=== PATIENT | male | born 1940 | race Caucasian/White ===

== ENCOUNTER 2020-03-07 13:24 | Outpatient (REF) | payer MEDICARE, SELFPAY | END 2020-03-07 13:25 | disposition home or self-care (01) | LOC: HO.LAB 13:24 | PROVIDERS: PCP Internal Medicine; Visit Provider Internal Medicine | DX: Z20.828 Contact with and (suspected) exposure to other viral communicable diseases (principal) | CPT/HCPCS: 36415; C9803; U0003 ==

== ENCOUNTER 2020-08-14 10:32 | Outpatient (REF) | payer MEDICARE, SELFPAY ==
[2020-08-14 10:36] LABS: MANUAL DIFF FLAG NO
[2020-08-14 10:48] LABS: Basophils Absolute Auto 0.1 X10*3/uL (0.0-0.2); Basophils Percent Auto 0.9 % (0-2); Eosinophils Absolute Auto 0.2 X10*3/uL (0.0-0.4); Eosinophils Percent Auto 2.8 % (0-4); Hematocrit 45.6 % (42-52); Hemoglobin 14.9 g/dl (14.0-18.0); Imm Gran Abs Auto 0.01 X10*3/uL (0.00-0.03); Imm Gran Pct Auto 0.2 % (0.0-0.4); Lymphocytes Absolute Auto 1.7 X10*3/uL (1.2-4.9); Lymphocytes Percent Auto 30.3 % (20-40); Mean Corpuscular HGB Conc 32.7 g/dl (31.0-36.0); Mean Corpuscular Hemoglobin 27.2 pg (27.0-33.0); Mean Corpuscular Volume 83.2 fL (80-98); Mean Platelet Volume 10.5 fL (9.4-12.4); Monocytes Absolute Auto 0.6 X10*3/uL (0.1-1.2); Monocytes Percent Auto 10.1 % (2-11); Neutrophils Absolute Auto 3.2 X10*3/uL (2.0-8.3); Neutrophils Percent Auto 55.7 % (45-73); Platelet Count 180 X10*3/uL (160-400); Red Blood Count 5.48 X10*6/uL (4.60-5.80); Red Cell Distribution Width 13.4 % (11.0-16.0); White Blood Count 5.7 X10*3/uL (4.8-10.8)
[2020-08-14 11:01] LABS: Estimated Average Glucose 108 mg/dL; Glucose Urine UA NEG (NEG); Hemoglobin A1c % 5.4 %; Leukocyte Esterase Urine NEG (NEG); Nitrite Urine NEG (NEG); PH 5.5 (5.0-8.0); Specific Gravity - Urine 1.025 (1.005-1.025); Urine Blood NEG (NEG); Urine Ketones NEG (NEG); Urine Protein NEG (NEG-TRACE)
[2020-08-14 11:04] LABS: Appearance Urine CLEAR; Color Urine YELLOW
[2020-08-14 11:49] LABS: Creatinine Urine 213.49 mg/dL; Microalbum/Creatinine Ratio Ur 4.2 ug/mg cr
[2020-08-14 11:55] LABS: Alanine Aminotransferase 13 U/L (0-40); Albumin Level 4.1 g/dL (3.5-5.0); Alkaline Phosphatase 66 U/L (39-117); Anion Gap 15 (12-20); Aspartate Amino Transferase 19 U/L (5-37); Bilirubin Total 1.3 mg/dL (0.0-1.0); Blood Urea Nitrogen 17 mg/dL (9-16); Calcium 8.7 mg/dL (8.4-10.2); Carbon Dioxide 27 mmol/L (22-29); Chloride 105 mmol/L (96-108); Cholesterol 222 mg/dL; Estimated Glomerular Filt Rate > 60; Glucose Fasting 98 mg/dL (60-99); HDL Cholesterol 45 mg/dL; LDL Cholesterol Calculated 148 mg/dl; Potassium 3.5 mmol/L (3.3-5.1); Sodium 143 mmol/L (135-145); Total Protein 6.3 g/dL (6.5-8.0); Triglycerides 148 mg/dL
[2020-08-14 12:15] LABS: PSA,Total (Free>4and<10) < 0.05 ng/mL (0.00-4.00)
[2020-08-14 12:22] LABS: Reflex LDLD? No
== END 2020-08-14 10:33 | disposition home or self-care (01) ==
LOC: HO.LNP 10:32
PROVIDERS: Visit Provider Internal Medicine
DX: Z00.00 Encounter for general adult medical examination without abnormal findings (principal); Z12.5 Encounter for screening for malignant neoplasm of prostate; E78.00 Pure hypercholesterolemia, unspecified; E11.40 Type 2 diabetes mellitus with diabetic neuropathy, unspecified; I10 Essential (primary) hypertension; Z85.46 Personal history of malignant neoplasm of prostate
CPT/HCPCS: 80053; 80061; 81003; 82043; 83036; 84153; 85025

== ENCOUNTER 2020-10-16 17:33 | Observation (INO) | payer MEDICARE, SELFPAY ==
--- NOTE | ~2020-10-16 | XR_ITS ---
EXAMINATION: XR CHEST CLINICAL INFORMATION: Chest pain COMPARISON: 10/04/2019 TECHNIQUE: Frontal view of the chest was obtained. FINDINGS: Cardiomediastinal silhouette is stable. The costophrenic sulci are excluded from the current film is no clear effusion, pneumothorax or consolidation. XR/XR chest 1V IMPRESSION: No acute cardiopulmonary process.
--- NOTE | 2020-10-16 17:38 | ECG_ITS ---
Test Reason : CHEST PAIN Blood Pressure : / mmHG Vent. Rate : 063 BPM Atrial Rate : 063 BPM P-R Int : 196 ms QRS Dur : 106 ms QT Int : 418 ms P-R-T Axes : 069 059 121 degrees QTc Int : 427 ms Normal sinus rhythm Anteroseptal infarct (cited on or before 16-OCT-2020) ST & T wave abnormality, consider lateral ischemia Abnormal ECG When compared with ECG of 28-JAN-2019 15:45, Premature ventricular complexes are no longer Present Serial changes of Anteroseptal infarct Present Referred By: Generic ED Physician Electronically Signed By:TAYA FIGUEROA
[2020-10-16 17:54] LABS: MANUAL DIFF FLAG NO
[2020-10-16 17:58] LABS: Basophils Percent Auto 0.5 % (0-2); Eosinophils Absolute Auto 0.3 X10*3/uL (0.0-0.4); Eosinophils Percent Auto 4.4 % (0-4); Hematocrit 44.7 % (42-52); Hemoglobin 15.2 g/dl (14.0-18.0); Imm Gran Abs Auto 0.01 X10*3/uL (0.00-0.03); Imm Gran Pct Auto 0.2 % (0.0-0.4); Lymphocytes Absolute Auto 1.6 X10*3/uL (1.2-4.9); Lymphocytes Percent Auto 23.8 % (20-40); Mean Corpuscular Hemoglobin 27.5 pg (27.0-33.0); Mean Corpuscular Volume 80.8 fL (80-98); Mean Platelet Volume 9.7 fL (9.4-12.4); Monocytes Absolute Auto 0.5 X10*3/uL (0.1-1.2); Monocytes Percent Auto 7.3 % (2-11); Neutrophils Absolute Auto 4.2 X10*3/uL (2.0-8.3); Neutrophils Percent Auto 63.8 % (45-73); Platelet Count 161 X10*3/uL (160-400); Red Blood Count 5.53 X10*6/uL (4.60-5.80); Red Cell Distribution Width 13.2 % (11.0-16.0); White Blood Count 6.6 X10*3/uL (4.8-10.8)
[2020-10-16 18:24] LABS: Anion Gap 13 (12-20); Blood Urea Nitrogen 11 mg/dL (9-16); Calcium 8.9 mg/dL (8.4-10.2); Carbon Dioxide 27 mmol/L (22-29); Chloride 101 mmol/L (96-108); Estimated Glomerular Filt Rate > 60; Glucose Random 125 mg/dL (60-115); Potassium 3.8 mmol/L (3.3-5.1); Sodium 137 mmol/L (135-145)
[2020-10-16 18:31] LABS: Troponin-I High Sensitivity 9.5 ng/L (<3.5-35.0)
[2020-10-16 19:50] VITALS: BP 192/72; PULSE 50; RESP 18; TEMP 36.7; O2SAT 97; BMI 29.5
[2020-10-16 22:14] VITALS: BP 202/77; PULSE 55; TEMP 36.9; O2SAT 99
--- NOTE | 2020-10-16 22:40 | ED_ITS ---
HPI - Chest Pain General Chief Complaint: Chest Pain Stated Complaint: CP Time Seen by Provider: 10/16/20 22:40 Source: patient Mode of arrival: ambulatory History of Present Illness HPI narrative: 80-year-old male with past medical history of hypertension who presents with complaints of left lateral chest ?discomfort? that started yesterd ay evening and persisted throughout the night and was not associated with dizziness/headache/nausea/diaphoresis/shortness of breath, nonradiating, no exacerbating/alleviating symptoms, no recent cough, no fever, no chills, no association with food/respirations/movement. Patient denies any association with exertion and states that it has persisted all throughout the day. He does describe that he did a little bit of yd work that consisted of riding on a lawnmower on Thursday, but otherwise denies any strenuous activity. Related Data Allergies Allergy/AdvReac Type Severity Reaction Status Date / Time No Known Allergies Allergy Verified 10/16/20 19:50 [No Known Allergies*] Review of Systems Review of Systems: Pertinent positives and negatives as stated in HPI 10 point review of systems is otherwise negative. PMFSH Past Medical History Medical History High cholesterol HTN (hypertension) Social History Social History Alcohol intake: never Patient Tobacco Use Status: Former Tobacco user Use of substances other than those prescribed or required for medical reasons: No Advance Directives: No Advance Directives Information Provided: Yes Physical Exam Vital Signs: Vital Signs: Last Vital Signs Temp 98.4 F 10/16/20 22:14 Pulse 58 10/17/20 00:09 Resp 16 10/17/20 00:09 BP 194/86 H 10/17/20 00:09 Pulse Ox 96 10/17/20 00:09 Body Mass Index 29.5 VITAL SIGNS: Reviewed. GENERAL: Well developed, well nourished, in no acute distress. HEAD: Normocephalic/atraumatic, EYES: PERRLA, EOMI intact without pain, no nystagmus OROPHARYNX: no oral lesions noted, posterior pharynx clear NECK: Supple, no adenopathy LUNGS: Normal breath sounds. No adventitious sounds or accessory muscle use. SpO2<99>, no chest wall tenderness on palpation CARDIOVASCULAR: Regular rate and rhythm without noted murmurs, no JVD or lower extremity edema. ABDOMEN: Soft, non-tender, non-distended with bowel sounds. MUSCULOSKELETAL: No tenderness, deformities, or effusions noted on gross inspection. EXTREMITIES: No cyanosis, clubbing or edema. SKIN: Inspection of the skin reveals no rashes NEUROLOGIC: Alert and oriented x 4. Strength and sensation to light touch were grossly intact x 4. Course Course Course Narrative: 80-year-old male with history and clinical presentation not indicative of angina, ACS, pneumonia. Review of all investigations although without acute findings I discussed the case with Cardiology and given the persistence of the left chest pain and EKG findings the recommendation is for admission for further evaluation. This case was discussed with the inpatient hospitalist who accepts admission. MDM - Chest Pain Lab Data Result diagrams: 10/16/20 17:48 10/16/20 17:48 Labs: Lab Results 10/16/20 10/16/20 10/16/20 Range/Units 17:48 17:48 17:48 WBC 6.6 (4.8-10.8) X10*3/uL RBC 5.53 (4.60-5.80) X10*6/uL Hgb 15.2 (14.0-18.0) g/dl Hct 44.7 (42-52) % MCV 80.8 (80-98) fL MCH 27.5 (27.0-33.0) pg MCHC 34.0 (31.0-36.0) g/dl RDW 13.2 (11.0-16.0) % Plt Count 161 (160-400) X10*3/uL MPV 9.7 (9.4-12.4) fL Immature Gran % (Auto) 0.2 (0.0-0.4) % Neut % (Auto) 63.8 (45-73) % Lymph % (Auto) 23.8 (20-40) % [place] % (Auto) 7.3 (2-11) % Eos % (Auto) 4.4 H (0-4) % Baso % (Auto) 0.5 (0-2) % Lymph # (Auto) 1.6 (1.2-4.9) X10*3/uL [place] # (Auto) 0.5 (0.1-1.2) X10*3/uL Eos # (Auto) 0.3 (0.0-0.4) X10*3/uL Baso # (Auto) 0.0 (0.0-0.2) X10*3/uL Abs Immat Gran (auto) 0.01 (0.00-0.03) X10*3/uL Absolute Neuts (auto) 4.2 (2.0-8.3) X10*3/uL Absolute Nucleated RBC 0.000 (0.0-0.012) X10*3/uL Nucleated RBC % (auto) 0.0 (0.0-0.2) /100WBC Sodium 137 (135-145) mmol/L Potassium 3.8 (3.3-5.1) mmol/L Chloride 101 (96-108) mmol/L Carbon Dioxide 27 (22-29) mmol/L Anion Gap 13 (12-20) BUN 11 (9-16) mg/dL Creatinine 1.00 (0.5-1.4) mg/dL Estim Creat Clear Calc TNP Estimated GFR > 60 Random Glucose 125 H (60-115) mg/dL Calcium 8.9 (8.4-10.2) mg/dL Troponin I High Sens 9.5 (<3.5-35.0) ng/L 10/16/20 Range/Units 22:02 WBC (4.8-10.8) X10*3/uL RBC (4.60-5.80) X10*6/uL Hgb (14.0-18.0) g/dl Hct (42-52) % MCV (80-98) fL MCH (27.0-33.0) pg MCHC (31.0-36.0) g/dl RDW (11.0-16.0) % Plt Count (160-400) X10*3/uL MPV (9.4-12.4) fL Immature Gran % (Auto) (0.0-0.4) % Neut % (Auto) (45-73) % Lymph % (Auto) (20-40) % [place] % (Auto) (2-11) % Eos % (Auto) (0-4) % Baso % (Auto) (0-2) % Lymph # (Auto) (1.2-4.9) X10*3/uL [place] # (Auto) (0.1-1.2) X10*3/uL Eos # (Auto) (0.0-0.4) X10*3/uL Baso # (Auto) (0.0-0.2) X10*3/uL Abs Immat Gran (auto) (0.00-0.03) X10*3/uL Absolute Neuts (auto) (2.0-8.3) X10*3/uL Absolute Nucleated RBC (0.0-0.012) X10*3/uL Nucleated RBC % (auto) (0.0-0.2) /100WBC Sodium (135-145) mmol/L Potassium (3.3-5.1) mmol/L Chloride (96-108) mmol/L Carbon Dioxide (22-29) mmol/L Anion Gap (12-20) BUN (9-16) mg/dL Creatinine (0.5-1.4) mg/dL Estim Creat Clear Calc Estimated GFR Random Glucose (60-115) mg/dL Calcium (8.4-10.2) mg/dL Troponin I High Sens 9.5 (<3.5-35.0) ng/L ECG Data ECG #1: Attestation: I personally reviewed and interpreted this ECG as follows: Prior ECG tracings: available for review (01/28/2019 minimal changes noted on comparison) Interpretation: Normal sinus rhythm, HR -63, no STEMI, the ST depressions noted in lateral leads appear to be old on comparison, QTC and TN are within normal limits. Discharge Plan Discharge Clinical Impression: Atypical chest pain, ACS (acute coronary syndrome) Patient Disposition: Admitted As Inpatient
[2020-10-16 22:57] LABS: Troponin-I High Sensitivity 9.5 ng/L (<3.5-35.0)
[2020-10-16 23:00] VITALS: BP 178/80; PULSE 52
[2020-10-16] MEDS: hydrALAZINE HCl 10 MG TABLET PO (23:00)
[2020-10-17] VITALS (9 sets, daily range): BP systolic 162–200; BP diastolic 80–92; PULSE 57–87; RESP 15–18; TEMP 36.2–36.6; O2SAT 95–97
[2020-10-17 02:27] LABS: COVID-19 Test Negative (Negative); IDNOW Serial# 9DD0AD1C
--- NOTE | 2020-10-17 04:56 | PM.IMHP ---
History of Present Illness Date of Service: 10/17/20 Chief Complaint: Chest discomfort 80-year-old male with history of hypertension, hyperlipidemia, who presented with left-sided chest discomfort. History is from patient and from ED notes. Patient endorses that his chest discomfort started the night of 10/15/2020, located on the left lateral chest, better with exertion, no aggravating factors, no radiation, no timing, lasting for hours/day. He said he has had this type of chest discomfort in the past before, and usually associated with elevated blood pressure. He tells me that he has [id number] hypertension; he saw gastroenterology nurse 2 years ago and was tried on many different medications before his blood pressure could be controlled; he also states that his primary care physician reduced his metoprolol 1.5 weeks ago (from 50 to 25 mg daily) because the patient was bradycardic; patient wonders if this is what is making his blood pressure high now. Otherwise, he denies fever, chills, nausea, vomiting, abdominal pain. In the ED, ED physician did consult with on-call gastroenterology nurse, and was advised to have the patient admitted with Cardiology consult. Review of Systems Constitutional: Constitutional: Denies chills, Denies fatigue, Denies fever(s), Denies headache(s), Denies weakness and Denies weight loss Eyes: Eyes: Denies blurry vision, Denies change in vision, Denies diplopia and Denies loss of vision ENT: Denies dysphagia, Denies vertigo, Denies dizziness, Denies headache(s), Denies hearing loss, Denies lip swelling and Denies sore throat Cardiovascular: Cardiovascular: Reports chest pain, Denies leg edema, Denies lightheadedness, Denies palpitations and Denies dyspnea Respiratory: Respiratory: Denies no additional respiratory complaints, Denies cough, Denies dyspnea and Denies wheezing Gastrointestinal: Gastrointestinal: Denies coffee ground emesis, Denies constipation, Denies dysphagia, Denies diarrhea, Denies nausea and Denies vomiting Genitourinary: Genitourinary: Denies dysuria Musculoskeletal: Musculoskeletal: Denies arthralgias, Denies muscle weakness, Denies numbness and Denies tingling Integumentary/Breasts: Skin/Breast: Denies bleeding lesions, Denies new lesions and Denies rash Neurologic: Denies vertigo, Denies dizziness, Denies headache(s), Denies loss of vision, Denies numbness, Denies tingling and Denies weakness Psychiatric: Psychiatric: Denies anxiety and Denies depression Endocrine: Endocrine: Denies cold intolerance, Denies fatigue, Denies heat intolerance and Denies palpitations Hematologic/Lymphatic: Hematologic/Lymphatic: Denies easy bleeding, Denies easy bruising and Denies lymphadenopathy Allergic/Immunologic: Allergic/Immunologic: Denies lip swelling and Denies wheezing PMFSH Medical History (Updated 10/17/20 @ 05:06 by Kit Marcelo MD) High cholesterol HTN (hypertension) Pertinent family history: father with hypertension Surgical History History of appendectomy Social History Household Members: Spouse Housing: House Do you presently have visiting nurse or other home services: No Alcohol intake: never Patient Tobacco Use Status: Former Tobacco user Use of substances other than those prescribed or required for medical reasons: No Have you been hit, kicked, punched, or otherwise hurt by someone within the past year? If so, by whom?: No Do you feel safe in your current relationship?: Yes Is there a partner from a previous relationship who is making you feel unsafe now?: No Are you made to feel afraid or neglected: No Advance Directives: No Advance Directives Information Provided: Yes Do you have thoughts of harming others: None Do you have a plan to hurt others: No Plan Recently lost weight without trying: No Nutrition Risks: No Nutritional Risk Meds Allergies Allergy/AdvReac Type Severity Reaction Status Date / Time No Known Allergies Allergy Verified 10/16/20 19:50 [No Known Allergies*] Active Medications: Current Medications Generic Name Dose Route Start Last Admin Trade Name Freq PRN Reason Stop Dose Admin Acetaminophen 650 mg 10/17/20 02:44 Acetaminophen 325 Mg Tablet PO Q6H PRN Pain, Mild (Pain Scale 1-3) Sodium Chloride 3 ml 10/17/20 08:00 0.9 % Sodium Chloride Flush 3 Ml Syringe IVFLUSH [facility] Medications Medication Instructions Recorded Confirmed Last Taken Type lisinopril 20 1 tab PO DAILY 10/17/20 10/17/20 Unknown History mg-hydrochlorothiazide 12.5 mg tablet metoprolol succinate 25 mg 1 tab PO DAILY 10/17/20 10/17/20 Unknown History tablet,extended release 24 hr pravastatin 40 mg tablet 1 tab PO DAILY 10/17/20 10/17/20 Unknown History Physical Exam Vital Signs and Narrative: Vital Signs: Last Vital Signs Temp 97.6 F 10/17/20 03:05 Pulse 62 10/17/20 03:05 Resp 18 10/17/20 02:54 BP 172/87 H 10/17/20 03:05 Pulse Ox 95 10/17/20 03:05 Body Mass Index 29.5 Const: General: no acute distress, well developed and alert HENMT: Face and sinus: Yes normal facial exam and Yes face symmetric Mouth: Normal oral and palatal mucosa present and moist mucous membranes Throat: Yes posterior oropharynx normal and Yes tonsils normal Eyes: General: appearance normal, both eyes and all related structures Alignment and Position: alignment normal and position normal Sclerae: sclerae normal Pupils: Equal, round and reactive pupils present EOM: EOMs intact bilaterally Neck: Yes normal visual inspection, Yes full ROM and Yes no lymphadenopathy Lymphatic: no lymphadenopathy noted Chest: Chest palpation & inspection: normal inspection of the chest, no tenderness and No rash Resp: Effort & Inspection: normal respiratory effort and able to speak in complete sentences Auscultation: clear to auscultation bilaterally, no crackles, no rales, no rhonchi and no wheezes Cardio: Rate: regular rate Rhythm: regular rhythm Heart sounds: S1 normal heart sound present, S2 normal heart sound present, no murmurs and no rubs GI: Inspection: No distended Palpation (GI): Soft to palpation and nontender Percussion: No tympanic to percussion Auscultation: normal bowel sounds Skin: Rashes: no rashes Trauma: no lacerations or abrasions Wounds: no wounds Neuro: Cranial nerves: Yes CN's II-XII intact bilaterally, Yes Equal, round and reactive pupils present and Yes Bilaterally intact EOM present Extrem: General: Yes full ROM and Yes no pedal edema Psych: Appearance: grossly normal Mental Status: mental status grossly normal Speech and movement: Normal speech and movement present Affect: normal affect Thought process: Normal thought process present Results Labs CBC and Chem 7: 10/16/20 17:48 08/17/21 17:48 Labs: Laboratory Results - last 24 hr 10/16/20 10/16/20 10/16/20 17:48 17:48 17:48 MCV 80.8 MCH 27.5 MCHC 34.0 RDW 13.2 Plt Count 161 MPV 9.7 Immature Gran % (Auto) 0.2 Neut % (Auto) 63.8 Lymph % (Auto) 23.8 [place] % (Auto) 7.3 Eos % (Auto) 4.4 H Baso % (Auto) 0.5 Lymph # (Auto) 1.6 [place] # (Auto) 0.5 Eos # (Auto) 0.3 Baso # (Auto) 0.0 Abs Immat Gran (auto) 0.01 Absolute Neuts (auto) 4.2 Absolute Nucleated RBC 0.000 Nucleated RBC % (auto) 0.0 Anion Gap 13 Estim Creat Clear Calc TNP Estimated GFR > 60 Random Glucose 125 H Calcium 8.9 Troponin I High Sens 9.5 COVID-19 ([facility]) COVID-19 Clin Com 10/16/20 10/17/20 22:02 02:07 MCV MCH MCHC RDW Plt Count MPV Immature Gran % (Auto) Neut % (Auto) Lymph % (Auto) [place] % (Auto) Eos % (Auto) Baso % (Auto) Lymph # (Auto) [place] # (Auto) Eos # (Auto) Baso # (Auto) Abs Immat Gran (auto) Absolute Neuts (auto) Absolute Nucleated RBC Nucleated RBC % (auto) Anion Gap Estim Creat Clear Calc Estimated GFR Random Glucose Calcium Troponin I High Sens 9.5 COVID-19 ([facility]) Negative COVID-19 Clin Com See Note Imaging Radiologist's Impressions: Impressions Chest X-Ray 10/16/20 17:45 IMPRESSION: No acute cardiopulmonary process. Assessment and Plan (1) Atypical chest pain: Status: Acute -troponins in the ED were flat -ED physician did contact gastroenterology nurse on-call, and was recommended to have the patient admitted with Cardiology consult -cardiology consult placed -troponin lab ordered for the morning -full-dose aspirin -Will defer to Cardiology if patient needs echocardiogram (2) HTN (hypertension): Status: Acute -patient with uncontrolled hypertension in the ED -continue home medications -IV hydralazine p.r.n. for systolic blood pressure over 160 -patient may have uncontrolled hypertension because of reduction of metoprolol from 50 mg to 25 mg about 1.5 weeks ago -cardiology consulted (as per above) (3) High cholesterol: Status: Acute -continue home medications FEN: Cardiac diet CODE STATUS: Full Code DISPO: Admit to Observation Quality Stroke Does the patient have a stroke diagnosis?: No VTE Prior VTE?: No VTE Risk Level:: Medical - low VTE Device Contraindication: N/A - Device Ordered VTE Drug Contraindication: Treatment Not Indicated
[2020-10-17] MEDS: hydrALAZINE HCl 20 MG/ML VIAL 10 MG IVPUSH (05:25)
[2020-10-17] MEDS: Pantoprazole Sodium 40 MG/10 ML VIAL IVPUSH (05:26)
--- NOTE | 2020-10-17 05:33 | PC.NURSE ---
pt medicated with hydralazine 10mg iv for bp-200/80 at 0530.will continue to monitor.denies chest pain or sob.
[2020-10-17 06:16] LABS: MANUAL DIFF FLAG NO
[2020-10-17 06:30] LABS: Basophils Absolute Auto 0.1 X10*3/uL (0.0-0.2); Basophils Percent Auto 0.7 % (0-2); Eosinophils Absolute Auto 0.3 X10*3/uL (0.0-0.4); Eosinophils Percent Auto 3.8 % (0-4); Hematocrit 45.3 % (42-52); Hemoglobin 15.2 g/dl (14.0-18.0); Imm Gran Abs Auto 0.02 X10*3/uL (0.00-0.03); Imm Gran Pct Auto 0.3 % (0.0-0.4); Lymphocytes Absolute Auto 1.9 X10*3/uL (1.2-4.9); Lymphocytes Percent Auto 27.7 % (20-40); Mean Corpuscular HGB Conc 33.6 g/dl (31.0-36.0); Mean Corpuscular Hemoglobin 26.9 pg (27.0-33.0); Mean Corpuscular Volume 80.2 fL (80-98); Mean Platelet Volume 9.5 fL (9.4-12.4); Monocytes Absolute Auto 0.6 X10*3/uL (0.1-1.2); Monocytes Percent Auto 8.6 % (2-11); Neutrophils Percent Auto 58.9 % (45-73); Platelet Count 165 X10*3/uL (160-400); Red Blood Count 5.65 X10*6/uL (4.60-5.80); Red Cell Distribution Width 13.2 % (11.0-16.0); White Blood Count 6.8 X10*3/uL (4.8-10.8)
--- NOTE | 2020-10-17 06:38 | PC.NURSE ---
bp-186/84 1 hour after iv hydralazine given.
[2020-10-17 06:59] LABS: Troponin-I High Sensitivity 8.8 ng/L (<3.5-35.0)
[2020-10-17] MEDS: 0.9 % Sodium Chloride Flush 3 ML SYRINGE IVFLUSH (08:05)
[2020-10-17] MEDS: Pravastatin Sodium 40 MG TABLET PO (08:05)
[2020-10-17] MEDS: lisinopriL 40 MG TABLET PO (08:06)
[2020-10-17] MEDS: Aspirin 325 MG TABLET PO (08:06)
[2020-10-17] MEDS: Metoprolol Succinate ER 25 MG TAB.ER.24H PO (08:06)
[2020-10-17] MEDS: hydroCHLOROthiazide 12.5 MG TABLET PO (08:06)
--- NOTE | 2020-10-17 09:47 | MHC.CM.PN ---
PATIENT LIVES WITH HIS HCP/. COPY OF DOCUMENT REQUESTED IF PATIENT DOES NOT DC TODAY HE IS INDEPENDENT WITH HIS ADLS. NO [facility]NA OR ELDER SERVICES. HE WOULD LIKE TO RETURN HOME TODAY WITH NO SERVICES. [place] 10/17 IN CHART.
--- NOTE | 2020-10-17 10:19 | PC.NURSE ---
Patient is alert and oriented. Patient verbalized wanting to leave AMA, Dr. alves made aware, at bedside. Patient educated on risks of leaving AMA. Patient verbally understood. IV removed. devulcanizer operator removed. AMA paperwork signed. Leaving unaccompanied paperwork signed.
--- NOTE | 2020-10-17 14:12 | MHC.CM.PN ---
POST DC NOTE PATIENT LEFT AMA.
--- NOTE | 2020-10-17 18:05 | P.DS_ITS ---
DS: Providers Provider Date of Service: 10/17/20 Date of admission: 10/17/20 02:44 Date of discharge: 10/17/20 Primary care physician: Boone Oconnell MD DS: Diagnosis Discharge Diagnosis (1) Atypical chest pain: Status: Acute (2) HTN (hypertension): Status: Acute (3) High cholesterol: Status: Acute DS: Medications Discharge Medications Home Medications: Home Medications Medication Instructions Recorded Confirmed lisinopril 20 1 tab PO DAILY 10/17/20 10/17/20 mg-hydrochlorothiazide 12.5 mg tablet metoprolol succinate 25 mg 1 tab PO DAILY 10/17/20 10/17/20 tablet,extended release 24 hr pravastatin 40 mg tablet 1 tab PO DAILY 10/17/20 10/17/20 Previous Rx's Medication Instructions Recorded amlodipine 2.5 mg tablet 2.5 mg PO DAILY #7 tab 10/17/20 DS: Summary Hospital Course Hospital Course: Patient was admitted for uncontrolled hypertension and chest tightness: Troponin X3 seems flat, blood pressure was still uncontrolled: Subsequently this morning patient suddenly decided to leave against medical advise-risk of leaving against medical advise discussed with patient and his in detail including , [place] - they both understand and agree still wants to leave. Will advised to aspirin at home he said he has that at home and also we added amlodipine 2.5 mg in addition to his current hypertension regimen-advised to go to his PCP as soon as possible and come back to the hospital in case his condition worsen or develops chest pain again. Patient is alert orientedx3 understands above conversation in detail. Above management discussed with the patient in detail length she understand and in agreement with the above plan, time spent 50 minutes and 50% time spent on counseling. Significant findings: As above. Procedures performed: None. Treatment and response: As above. Complications: None. Time Spent with Patient Time attestation: Total time spent providing and/or coordinating discharge services: Discharge coordination time: Greater than 30 minutes Quality: Stroke Does the patient have a stroke diagnosis?: No Physical Exam Vital Signs: Vital Signs: Last Vital Signs Temp 97.8 F 10/17/20 08:00 Pulse 87 10/17/20 08:06 Resp 16 10/17/20 08:00 BP 193/91 H 10/17/20 08:06 Pulse Ox 96 10/17/20 08:00 Body Mass Index 29.5 Cvs: rrr, [id number] , no murmur res: clear to auscultation ,no rhonchii or wheezing abd: no rebound or guarding ,nt, bs present. ext pulses present , no cyanosis neuro: axo3 , nonfocal. DS: Data Data Completed and Pending Labs on day of discharge: Laboratory Results - last 24 hr 10/16/20 10/16/20 10/16/20 17:48 17:48 22:02 WBC RBC Hgb Hct MCV MCH MCHC RDW Plt Count MPV Immature Gran % (Auto) Neut % (Auto) Lymph % (Auto) [place] % (Auto) Eos % (Auto) Baso % (Auto) Lymph # (Auto) [place] # (Auto) Eos # (Auto) Baso # (Auto) Abs Immat Gran (auto) Absolute Neuts (auto) Absolute Nucleated RBC Nucleated RBC % (auto) Sodium 137 Potassium 3.8 Chloride 101 Carbon Dioxide 27 Anion Gap 13 BUN 11 Creatinine 1.00 Estim Creat Clear Calc TNP Estimated GFR > 60 Random Glucose 125 H Calcium 8.9 Troponin I High Sens 9.5 9.5 COVID-19 ([facility]) COVID-[employer] Com 10/17/20 10/17/20 10/17/20 02:07 06:03 06:03 WBC 6.8 RBC 5.65 Hgb 15.2 Hct 45.3 MCV 80.2 MCH 26.9 L MCHC 33.6 RDW 13.2 Plt Count 165 MPV 9.5 Immature Gran % (Auto) 0.3 Neut % (Auto) 58.9 Lymph % (Auto) 27.7 Will % (Auto) 8.6 Eos % (Auto) 3.8 Baso % (Auto) 0.7 Lymph # (Auto) 1.9 Will # (Auto) 0.6 Eos # (Auto) 0.3 Baso # (Auto) 0.1 Abs Immat Gran (auto) 0.02 Absolute Neuts (auto) 4.0 Absolute Nucleated RBC 0.000 Nucleated RBC % (auto) 0.0 Sodium Potassium Chloride Carbon Dioxide Anion Gap BUN Creatinine Estim Creat Clear Calc Estimated GFR Random Glucose Calcium Troponin I High Sens 8.8 COVID-19 ([facility]) Negative COVID-19 Clin Com See Note Discharge Plan Discharge Patient Disposition: Left Against Medical Advice Discharge Diagnosis: uncontrolled htn , chest pain Referrals: Boone Oconnell MD [Primary Care Provider] - 1 Week Discharge Medications: New amlodipine 2.5 mg tablet 2.5 mg PO DAILY Qty: 7 RF: 0 Continued lisinopril-hydrochlorothiazide 20-12.5 mg tablet 1 tab PO DAILY RF: 0 pravastatin 40 mg tablet 1 tab PO DAILY RF: 0 metoprolol succinate 25 mg tablet extended release 24 hr 1 tab PO DAILY RF: 0 Discharge Orders: Discharge Order (Routine); Ordered 10/17/20 Ordered By: Ida Kohli Diet: advance to usual diet Activity on Discharge: As tolerated Care Plan Goals: patient left against medical advise -risks of levaing against medical advise discussed with him in detailincluding -he still wants to go. Health Concerns: as above. Plan of Treatment: as above. Assessment: as above. Discharge Date/Time: 10/17/20 10:35
== END 2020-10-17 10:35 | disposition left against medical advice (07) ==
LOC: HO.ED 23:59 → HO.EDOVER 10-17 02:52 → HO.S3 10-17 03:20
PROVIDERS: Admitting Provider Internal Medicine; Emergency Provider Student in an Organized Health Care Education/Training Program; PCP Internal Medicine; Visit Provider Internal Medicine
DX: R07.89 Other chest pain (principal); I10 Essential (primary) hypertension; E78.00 Pure hypercholesterolemia, unspecified; I21.09 ST elevation (STEMI) myocardial infarction involving other coronary artery of anterior wall; R94.31 Abnormal electrocardiogram [ECG] [EKG]; Z87.891 Personal history of nicotine dependence; Z20.822 Contact with and (suspected) exposure to COVID-19; Z53.29 Procedure and treatment not carried out because of patient's decision for other reasons; Z79.899 Other long term (current) drug therapy
CPT/HCPCS: 36415; 71045; 80048; 84484; 85025; 87635; 93005; 96374; 96375; 99218; 99220; 99285

== ENCOUNTER 2020-11-12 14:13 | Outpatient (REF) | payer MEDICARE, SELFPAY ==
[2020-11-12 14:32] LABS: Appearance Urine CLEAR; Color Urine YELLOW; Glucose Urine UA NEG (NEG); Leukocyte Esterase Urine NEG (NEG); Nitrite Urine NEG (NEG); Urine Blood NEG (NEG); Urine Ketones NEG (NEG); Urine Protein NEG (NEG-TRACE)
== END 2020-11-12 14:14 | disposition home or self-care (01) ==
LOC: HO.LNP 14:13
PROVIDERS: Visit Provider Internal Medicine
DX: N39.45 Continuous leakage (principal)
CPT/HCPCS: 81003; 87086

== ENCOUNTER → 2020-11-22 13:31 | Outpatient (BNVA) | payer MEDICARE, SELFPAY | PROVIDERS: PCP Internal Medicine; Referring Provider Internal Medicine; Visit Provider Internal Medicine Cardiovascular Disease | DX: R94.31 Abnormal electrocardiogram [ECG] [EKG] (principal); R07.89 Other chest pain; I10 Essential (primary) hypertension; R00.2 Palpitations | CPT/HCPCS: 99202 ==

== ENCOUNTER 2020-11-27 16:22 | Outpatient (REF) | payer MEDICARE, SELFPAY ==
[2020-11-27 16:41] LABS: Appearance Urine CLEAR; Color Urine YELLOW; Glucose Urine UA NEG (NEG); Leukocyte Esterase Urine NEG (NEG); Nitrite Urine NEG (NEG); Specific Gravity - Urine 1.025 (1.005-1.025); Urine Blood NEG (NEG); Urine Ketones NEG (NEG); Urine Protein NEG (NEG-TRACE)
[2020-11-27 17:12] LABS: Bacteria Urine TRACE /LPF; RBC Urine 0-2 /HPF (0); Squamous Epithelial Cell Urine TRACE /LPF; WBC Urine 0-2 /HPF (0-4)
== END 2020-11-27 16:23 | disposition home or self-care (01) ==
LOC: HO.LNP 16:22
PROVIDERS: Visit Provider Internal Medicine
DX: R31.9 Hematuria, unspecified (principal)
CPT/HCPCS: 81001; 87086

== ENCOUNTER → 2020-12-26 07:39 | Outpatient (REF) | payer MEDICARE, SELFPAY ==
--- NOTE | ~2020-12-26 | NM_ITS ---
Myocardial perfusion study Indication: Constipation with abnormal EKG to evaluate for myocardial ischemia Technique: The patient was brought in for a Lexiscan perfusion study on 12/26/2020. Patient performed low-level exercise and was injected 0.4 mg of Lexiscan intravenously. Within a minute of injection, 30 mCi of sestamibi was given intravenously. Images were obtained using the SPECT gamma camera interlaced with the gating device. Images were obtained in supine position. Resting perfusion study was performed on 12/27/2020. Patient was administered 30 mCi of sestamibi intravenously at rest. Images were then obtained in supine position. Images obtained with and without CT attenuation. Total DLP 112 mGy-cm. Images were processed with the software and compared side to side in short axis, horizontal long axis and vertical long axis views. Findings: The stress perfusion study showed nonattenuated images show minimally reduced uptake in the basal inferior and mid inferior wall of the LV myocardium. Remainder of the LV myocardium is normally perfused. Attenuation corrected images show mild thinning of the distal anterior wall of the LV myocardium.. The gated study shows low normal LV systolic function with calculated LVEF of 54%. LV cavity is normal in size. The gated study shows normal systolic wall thickening and contraction of segments. Resting study shows no change in perfusion pattern on nonattenuated study.. Gating at rest reveals normal cyst colic wall motion with ejection fraction at 51%. The findings are consistent with no clear reversible defect suggestive of ischemia. NM/NM gasper perf SPECT rest & str Impression: 1. Myocardial perfusion imaging study shows likely normal myocardial perfusion 2. Gated LVEF is 54% 3. Transient ischemic dilatation not present EKG is nondiagnostic for ischemia
--- NOTE | 2020-12-26 07:48 | CA_ITS ---
Transthoracic Echocardiogram Patient (Last, First, Middle): Saravanan Yarbrough M Gender: Male Date of : 1940 Age: 80 Procedure Date: 12/26/2020 Procedure Type: Transthoracic Echocardiogram Location: OP Height: 175.26 cm Weight: 92.08 kg BSA: 2.08 m2 Heart Rate: bpm BP: 134 / 80 mmHg Technical Illustrator: Referring MD: Mauri Smith MD Senior Architectural Designer: Mauri Smith MD Symptoms: R94.31 - Abnormal electrocardiogram [ECG] [EKG] Study Quality: Good ECG Rhythm: Sinus Conclusions: - 1. Normal LV systolic function with mild LVH with grade 1 diastolic dysfunction 2. Mild aortic stenosis 3. Normal RV systolic pressure 4. No pericardial effusion Findings Left Ventricle Normal left ventricular size and systolic function. There is mildly increased left ventricular wall thickness. Spectral Doppler is indicative of an impaired relaxation filling pattern. E/E prime ratio is <8, consistent with normal filling pressures. Evidence suggests grade I (mild) diastolic dysfunction. Right Ventricle Normal right ventricular cavity size and systolic function. Atria The left atrium is likely dilated. There is lipomatous hypertrophy of the interatrial septum. There is no evidence of interatrial shunt. The right atrium is normal in size. Aortic Valve There is mild calcification of the aortic valve. There is moderate thickening of the aortic valve. There is mild aortic valve stenosis. The peak aortic gradient is 22 mmHg.The mean gradient is 11 mmHg. The aortic valve area is 1.51 cm2. There is no aortic valve regurgitation. Mitral Valve Normal mitral valve structure and function. There is trace mitral valve regurgitation. There is no mitral valve stenosis. Pulmonic Valve The pulmonic valve was not well visualized. Tricuspid Valve Normal tricuspid valve structure. There is trace tricuspid valve regurgitation. The right ventricular systolic pressure is normal. There is no evidence of pulmonary hypertension. Great Vessels All visible segments of the aorta are normal in size. The pulmonary artery was not well visualized. Venous The inferior vena cava is normal in size and collapses greater than 50% with inspiration. Pericardium/Pleural There is no evidence of pericardial effusion. Prior Study Comparison No prior study available for comparison. Measurements 2D Linear Measurements IVSd: 1.31 0.6-0.9/0.6-1.0 cm LVIDd: 4.24 3.9-5.3/4.2-5.9 cm LVIDd Index: 2.04 2.4-3.2/2.2-3.1 cm/m2 LVIDs: 2.44 2.0-3.6 cm LVPWd: 1.26 0.7-1.1 cm Ao Root: 3.80 2.1-3.5 cm LA Diam: 4.20 2.7-3.8/3.0-4.0 cm LAIDs Index: 2.02 1.5-2.3 cm/m2 LV Mass: 249.18 67-162/88-224 g LV Mass Index: 119.80 43-95/49-115 g/m2 LVOT Diam: 2.20 3.0+(-)1.3 cm Mitral Valve MV Pk E: 0.46 MV PK A: 0.87 MV Decel Time: 358.00 E/A: 0.50 E'Lateral: 6.53 E'Medial: 4.79 E/E' Med: 9.70 E/E' Lat: 7.10 PHT: 105.00 MVA PHT: 2.[address] [place]: 1.29 Aortic Valve AoV Pk Alex: 2.32 AoV Mn Alex: 1.50 AoV VTI: 0.56 AoV Pk Grad: 22.00 Aov Mn Grad: 11.00 [place] Cont.VTI: 1.51 LVOT LVOT Pk Alex: 0.74 LVOT Mn Alex: 0.48 LVOT VTI: 0.22 LVOT Pk Grad: 2.00 LVOT Mn Grad: 1.00 LVOT Diam: 2.20 LVOT Area: 3.80 Diastolic Function MV Pk E: 0.46 MV Pk A: 0.87 E/A: 0.50 E'Medial: 4.79 E/E' Med: 9.70 E' Laterial: 6.53 E/E' Lat: 7.10 Tricuspid Valve TR Pk Alex: 1.87 TR Pk Grad: 14.00 RA Press: 3.00 RVSP: 17.00 Great Vessels Aorta Ao Root-2D: 3.80 2.0-3.7 cm Ao Asc: 3.50 2.1-3.4 cm Pulmonary Valve PV Pk Alex: 0.92 Peak PV Grad: 3.00 Updated in Other Vendor System with Status of Final Mauri Smith MD electronically signed on 12/26/2020 12:57:23 PM with status of Final
--- NOTE | 2020-12-26 07:48 | HM_ITS ---
Conclusion: 1. Patient was monitored for total of 3 days and 4 hours 2. Baseline rhythm is normal sinus rhythm with average heart rate of 58 beats per minute with frequent sinus bradycardia. 3. No significant pauses noted 4. No sustained atrial fibrillation noted 5. Brief Lupron color episodes with longest supraventricular run of 10 beats per minute consistent with atrial tachycardia 6. Total of 2956 PVCs accounting for 1.19% of total burden accounting for occasional PVCs 7. No patient reported events MTDD
--- NOTE | 2020-12-26 07:48 | CA_ITS ---
Acquisition Time: 2020-12-26 07:55:12 Total Exercise Time: 00:02:00 Test Indications: Abnormal ECG Medications: AMLODIPINE ASA LISINOPRIL/HCTZ PRAVASTATIN Protocol: LEXISCAN Max HR: 085 BPM 61% of Pred: 139 BPM Max BP: 152/066 mmHG Max Work Load: 1.6 METS Pharmqacological stress test with Lexiscan injection, while walking on treadmill, without anginal symptoms, with isolated PVC, with normotensive response to injection, with nondiagnostic EKG for ischemia, with EKG showing baseline ST/ T wave abnormality inferiorly and V5-V6 at baseline without significant changes during test. Test reviewed with Dr Gruber. Referred By: Mauri Smith Overread By: RUKHSANA SMYTH
== END ==
LOC: HO.CARD 07:39
PROVIDERS: PCP Internal Medicine; Visit Provider Internal Medicine Cardiovascular Disease
DX: R07.89 Other chest pain (principal); R94.31 Abnormal electrocardiogram [ECG] [EKG]; R00.2 Palpitations
CPT/HCPCS: 78452; 93017; 93242; 93306; A9500; J0280; J2785

== ENCOUNTER → 2021-01-08 14:38 | Outpatient (BNVA) | payer MEDICARE, SELFPAY | PROVIDERS: PCP Internal Medicine; Referring Provider Internal Medicine; Visit Provider Internal Medicine Cardiovascular Disease | DX: I11.9 Hypertensive heart disease without heart failure (principal); I49.3 Ventricular premature depolarization; I35.0 Nonrheumatic aortic (valve) stenosis | CPT/HCPCS: 99212 ==

== ENCOUNTER 2021-02-14 10:58 | Outpatient (REF) | payer MEDICARE, SELFPAY ==
[2021-02-14 11:15] LABS: Estimated Average Glucose 114 mg/dL; Hemoglobin A1c % 5.6 %
[2021-02-14 11:29] LABS: Alanine Aminotransferase 15 U/L (0-40); Alkaline Phosphatase 56 U/L (39-117); Aspartate Amino Transferase 18 U/L (5-37); Bilirubin Direct 0.3 mg/dL (0.0-0.5); Cholesterol 220 mg/dL; Glucose Fasting 93 mg/dL (60-99); HDL Cholesterol 44 mg/dL; LDL Cholesterol Calculated 148 mg/dl; Total Protein 6.4 g/dL (6.5-8.0); Triglycerides 144 mg/dL
[2021-02-14 11:47] LABS: Reflex LDLD? No
== END 2021-02-14 10:59 | disposition home or self-care (01) ==
LOC: HO.LNP 10:58
PROVIDERS: PCP Internal Medicine; Visit Provider Internal Medicine
DX: E11.40 Type 2 diabetes mellitus with diabetic neuropathy, unspecified (principal); E78.00 Pure hypercholesterolemia, unspecified
CPT/HCPCS: 80061; 80076; 82947; 83036

== ENCOUNTER 2021-05-17 16:39 | Outpatient (REF) | payer MEDICARE, SELFPAY ==
--- NOTE | ~2021-05-17 | XR_ITS ---
EXAMINATION: XR CHEST CLINICAL INFORMATION: Acute bronchitis COMPARISON: Chest x-ray 10/16/2020 TECHNIQUE: 2 views of the chest were obtained. FINDINGS: Lungs are clear. No pulmonary vascular congestion. There is no pleural effusion. The heart size is normal. The cardiac and mediastinal contours are normal. There are calcifications of the thoracic aorta. There are multilevel degenerative changes of dorsal spine. XR/XR chest 2V IMPRESSION: Unremarkable examination.
== END 2021-05-17 16:40 | disposition home or self-care (01) ==
LOC: HO.XRAY 16:39
PROVIDERS: PCP Internal Medicine; Visit Provider Internal Medicine
DX: J20.9 Acute bronchitis, unspecified (principal)
CPT/HCPCS: 71046

== ENCOUNTER 2021-08-26 10:51 | Outpatient (REF) | payer MEDICARE, SELFPAY ==
[2021-08-26 10:59] LABS: MANUAL DIFF FLAG NO
[2021-08-26 11:45] LABS: Basophils Absolute Auto 0.1 X10*3/uL (0.0-0.2); Basophils Percent Auto 0.9 % (0-2); Eosinophils Absolute Auto 0.3 X10*3/uL (0.0-0.4); Eosinophils Percent Auto 3.9 % (0-4); Hematocrit 43.5 % (42.0-52.0); Hemoglobin 14.3 g/dl (14.0-18.0); Imm Gran Abs Auto 0.01 X10*3/uL (0.00-0.03); Imm Gran Pct Auto 0.2 % (0.0-0.4); Lymphocytes Percent Auto 30.5 % (20-40); Mean Corpuscular HGB Conc 32.9 g/dl (31.0-36.0); Mean Corpuscular Hemoglobin 26.9 pg (27.0-33.0); Mean Corpuscular Volume 81.8 fL (80.0-98.0); Mean Platelet Volume 10.7 fL (9.4-12.4); Monocytes Absolute Auto 0.6 X10*3/uL (0.1-1.2); Monocytes Percent Auto 9.5 % (2-11); Neutrophils Absolute Auto 3.5 x10*3/uL (2.0-8.3); Platelet Count 186 X10*3/uL (160-400); Red Blood Count 5.32 X10*6/uL (4.60-5.80); Red Cell Distribution Width 14.3 % (11.0-16.0); White Blood Count 6.4 X10*3/uL (4.8-10.8)
[2021-08-26 11:54] LABS: Appearance Urine CLEAR; Color Urine YELLOW; Glucose Urine UA NEG (NEG); Leukocyte Esterase Urine NEG (NEG); Nitrite Urine NEG (NEG); PH 5.5 (5.0-8.0); Specific Gravity - Urine 1.025 (1.005-1.025); Urine Blood NEG (NEG); Urine Ketones NEG (NEG); Urine Protein NEG (NEG-TRACE)
[2021-08-26 12:27] LABS: Alanine Aminotransferase 21 U/L (0-40); Albumin Level 4.1 g/dL (3.5-5.0); Alkaline Phosphatase 64 U/L (39-117); Anion Gap 13 (12-20); Aspartate Amino Transferase 23 U/L (5-37); Bilirubin Total 0.8 mg/dL (0.0-1.0); Blood Urea Nitrogen 21 mg/dL (9-16); Calcium 8.8 mg/dL (8.4-10.2); Carbon Dioxide 27 mmol/L (22-29); Chloride 106 mmol/L (96-108); Cholesterol 213 mg/dL; Estimated Glomerular Filt Rate > 60; Glucose Fasting 120 mg/dL (60-99); HDL Cholesterol 51 mg/dL; LDL Cholesterol Calculated 141 mg/dl; Potassium 4.1 mmol/L (3.3-5.1); Sodium 142 mmol/L (135-145); Total Protein 6.4 g/dL (6.5-8.0); Triglycerides 105 mg/dL
[2021-08-26 12:31] LABS: PSA,Total (Free>4and<10) < 0.05 ng/mL (0.00-4.00)
[2021-08-26 12:52] LABS: Creatinine Urine 178.76 mg/dL; Microalbum/Creatinine Ratio Ur 5.5 ug/mg cr
[2021-08-26 12:53] LABS: Calcium Oxalate Crystals Urine TRACE /LPF; RBC Urine 0 /HPF (0); WBC Urine 0-2 /HPF (0-4)
[2021-08-26 20:37] LABS: Estimated Average Glucose 114 mg/dL; Hemoglobin A1c % 5.6 %
== END 2021-08-26 10:52 | disposition home or self-care (01) ==
LOC: HO.LNP 10:51
PROVIDERS: Visit Provider Internal Medicine
DX: E11.40 Type 2 diabetes mellitus with diabetic neuropathy, unspecified (principal); I10 Essential (primary) hypertension; E78.00 Pure hypercholesterolemia, unspecified; Z12.5 Encounter for screening for malignant neoplasm of prostate
CPT/HCPCS: 80053; 80061; 81001; 82043; 83036; 84153; 85025

== ENCOUNTER → 2021-12-31 08:17 | Outpatient (REF) | payer MEDICARE, SELFPAY ==
--- NOTE | 2021-12-31 08:21 | CA_ITS ---
Transthoracic Echocardiogram Patient (Last, First, Middle): Saravanan Yarbrough M Gender: Male Date of : 1940 Age: 81 Procedure Date: 12/31/2021 Procedure Type: Transthoracic Echocardiogram Location: OP Height: 175.26 cm Weight: 90.72 kg BSA: 2.07 m2 Heart Rate: 54 bpm BP: 138 / 70 mmHg Mercerizing Range Feeder: TO Referring MD: Mauri Smith MD Symptoms: I35.0 - Nonrheumatic aortic (valve) stenosis Study Quality: Adequate ECG Rhythm: Bradycardia Conclusions: - The left ventricular systolic function is normal. The calculated ejection fraction is 56% by biplane method. - There is moderate aortic valve stenosis. - Mildly increased right ventricular cavity size. Findings Left Ventricle Normal left ventricular cavity size. There is mildly increased left ventricular wall thickness. The left ventricular systolic function is normal. The calculated ejection fraction is 56% by biplane method. There is no evidence of regional wall motion abnormalities. Diastolic function is normal for age. There is moderate septal asymmetric hypertrophy. Right Ventricle Mildly increased right ventricular cavity size. There is normal right ventricular systolic function. Atria Mild biatrial enlargement. Aortic Valve There is moderate calcification of the aortic valve. There is moderate aortic valve stenosis. The mean gradient is 16 mmHg. The aortic valve area is 1.05 cm2. There is trace (trivial) aortic valve regurgitation. Stroke volume index 32cc/m2. Dimensionless index 0.28. Mitral Valve The mitral valve appears normal. There is mild mitral valve regurgitation. There is no mitral valve stenosis. Pulmonic Valve The pulmonic valve is likely normal. Tricuspid Valve Normal tricuspid valve structure. There is trace tricuspid valve regurgitation. There is no evidence of pulmonary hypertension. Great Vessels The asc aorta is normal in size. Venous The inferior vena cava is normal in size and collapses greater than 50% with inspiration. Pericardium/Pleural There is a trivial pericardial effusion. Prior Study Comparison Changes noted compared to prior study dated: 12/26/2020. Progression of aortic valve stenosis. Measurements 2D Linear Measurements IVSd: 1.43 0.6-0.9/0.6-1.0 cm LVIDd: 4.64 3.9-5.3/4.2-5.9 cm LVIDd Index: 2.24 2.4-3.2/2.2-3.1 cm/m2 LVIDs: 3.02 2.0-3.6 cm LVPWd: 1.14 0.7-1.1 cm LA Diam: 4.30 2.7-3.8/3.0-4.0 cm LAIDs Index: 2.08 1.5-2.3 cm/m2 LV Mass: 285.90 67-162/88-224 g LV Mass Index: 138.12 43-95/49-115 g/m2 LVOT Diam: 2.10 3.0+(-)1.3 cm 2D Systolic Function EF 4C: 55.00 >55% EF 2C: 57.20 >55% EF BiP: 55.50 >55% Mitral Valve MV Pk E: 0.62 MV PK A: 0.42 MV Decel Time: 377.00 E/A: 1.50 E'Lateral: 5.55 E'Medial: 4.46 E/E' Med: 13.90 E/E' Lat: 11.20 PHT: 110.00 MVA PHT: 2.00 Decel [place]: 1.65 Aortic Valve AoV Pk Alex: 2.61 AoV Mn Alex: 1.92 AoV VTI: 0.64 AoV Pk Grad: 27.00 Aov Mn Grad: 16.00 [place] Cont.VTI: 1.05 LVOT LVOT Pk Alex: 0.74 LVOT Mn Alex: 0.49 LVOT VTI: 0.20 LVOT Pk Grad: 2.00 LVOT Mn Grad: 1.00 LVOT Diam: 2.10 LVOT Area: 3.46 Diastolic Function MV Pk E: 0.62 MV Pk A: 0.42 E/A: 1.50 E'Medial: 4.46 E/E' Med: 13.90 E' Laterial: 5.55 E/E' Lat: 11.20 Right Ventricle TAPSE (mm): 23.50 TVS' Alex: 13.90 Tricuspid Valve TR Pk Alex: 1.56 TR Pk Grad: 10.00 RA Press: 3.00 RVSP: 13.00 Great Vessels Aorta Sinus of Valsalva: 4.20 2.0-3.5 cm Ao Asc: 3.80 2.1-3.4 cm Updated in Other Vendor System with Status of Final Jeferson Naranjo MD electronically signed on 01/01/2022 11:29:47 AM with status of Final
== END ==
LOC: HO.CARD 08:17
PROVIDERS: PCP Internal Medicine; Visit Provider Internal Medicine Cardiovascular Disease
DX: I35.0 Nonrheumatic aortic (valve) stenosis (principal)
CPT/HCPCS: 93306

== ENCOUNTER → 2022-01-09 09:39 | Outpatient (BNVA) | payer MEDICARE, SELFPAY | PROVIDERS: PCP Internal Medicine; Referring Provider Internal Medicine; Visit Provider Internal Medicine Cardiovascular Disease | DX: I35.0 Nonrheumatic aortic (valve) stenosis (principal); I11.9 Hypertensive heart disease without heart failure | CPT/HCPCS: 93005; 99212 ==

== ENCOUNTER 2022-02-21 11:46 | Outpatient (REF) | payer MEDICARE, SELFPAY ==
[2022-02-21 12:47] LABS: Alanine Aminotransferase 16 U/L (0-40); Albumin Level 4.2 g/dL (3.5-5.0); Alkaline Phosphatase 63 U/L (39-117); Aspartate Amino Transferase 16 U/L (5-37); Bilirubin Direct 0.3 mg/dL (0.0-0.5); Cholesterol 205 mg/dL; HDL Cholesterol 45 mg/dL; LDL Cholesterol Calculated 134 mg/dl; Total Protein 6.3 g/dL (6.5-8.0); Triglycerides 131 mg/dL
[2022-02-21 13:52] LABS: Reflex LDLD? No
== END 2022-02-21 11:47 | disposition home or self-care (01) ==
LOC: HO.LNP 11:46
PROVIDERS: Visit Provider Internal Medicine
DX: E78.00 Pure hypercholesterolemia, unspecified (principal)
CPT/HCPCS: 80061; 80076

== ENCOUNTER 2022-09-01 11:43 | Outpatient (REF) | payer MEDICARE, SELFPAY | END 2022-09-01 11:44 | disposition home or self-care (01) | LOC: HO.LNP 11:43 | PROVIDERS: Visit Provider Internal Medicine | DX: Z12.5 Encounter for screening for malignant neoplasm of prostate (principal); E11.40 Type 2 diabetes mellitus with diabetic neuropathy, unspecified; I10 Essential (primary) hypertension; E78.00 Pure hypercholesterolemia, unspecified; Z85.46 Personal history of malignant neoplasm of prostate | CPT/HCPCS: 80053; 80061; 81001; 82043; 83036; 84153; 85025 ==

== ENCOUNTER 2022-10-02 11:00 | Outpatient (REF) | payer MEDICARE, SELFPAY ==
[2022-10-02 12:08] LABS: Appearance Urine Clear; Color Urine Yellow; Glucose Urine UA Negative (Negative); Leukocyte Esterase Urine Trace (Negative); Nitrite Urine Negative (Negative); Specific Gravity - Urine 1.025 (1.005-1.025); UMIC TRIGGER UACC YES; Urine Blood Negative (Negative); Urine Ketones Negative (Negative); Urine Protein Negative (Neg-Trace)
[2022-10-02 12:12] LABS: Bacteria Urine None Seen (None Seen); Hyaline Casts Urine 0-2 /LPF (0-2); RBC Urine 0-2 /HPF (0-2); Squamous Epithelial Cell Urine 0-2 /HPF (0-2); WBC Urine 0-5 /HPF (0-5)
== END 2022-10-02 11:01 | disposition home or self-care (01) ==
LOC: HO.LNP 11:00
PROVIDERS: Visit Provider Internal Medicine
DX: R31.9 Hematuria, unspecified (principal)
CPT/HCPCS: 81001

== ENCOUNTER 2022-10-06 16:33 | Outpatient (REF) | payer MEDICARE, SELFPAY ==
[2022-10-06 18:35] LABS: Blood Urea Nitrogen 16 mg/dL (9-16); Estimated Glomerular Filt Rate > 60
[2022-10-10 10:53] LABS: Carbohydrate Antigen 19-9 10 U/mL (<34)
== END 2022-10-06 16:34 | disposition home or self-care (01) ==
LOC: HO.LNP 16:33
PROVIDERS: Visit Provider Internal Medicine
DX: Z01.812 Encounter for preprocedural laboratory examination (principal); R10.9 Unspecified abdominal pain; Z80.0 Family history of malignant neoplasm of digestive organs
CPT/HCPCS: 82565; 84520; 86301

== ENCOUNTER 2022-10-16 08:35 | Outpatient (REF) | payer MEDICARE, SELFPAY ==
--- NOTE | ~2022-10-16 | CT_ITS ---
EXAMINATION: CT ABDOMEN AND PELVIS WITHOUT AND WITH CONTRAST CLINICAL INFORMATION: Family history of pancreatic carcinoma. COMPARISON: CT abdomen/pelvis 04/10/2009 TECHNIQUE: Multidetector volumetric imaging was performed of the abdomen and pelvis before and after the IV administration of 85 mL of Omnipaque 350 intravenous contrast. Postcontrast scans were performed during both the arterial phase as well as the portal venous phase Sagittal and coronal reformatted images were obtained on the technologist's workstation. This CT examination was performed using dose optimization techniques as appropriate, variously including the following: *Automated exposure control *Adjustment of mA and/or kV according to patient size (this includes techniques or standardized protocols for targeted exams where dose is matched to indication/reason for exam; i.e. extremities or head) *Use of iterative reconstruction technique DLP: 1061 mGy-cm FINDINGS: LUNG BASES: The visualized lung bases are unremarkable. LIVER, GALLBLADDER, AND BILIARY TREE: The liver is normal in size, shape, and attenuation. No focal hepatic lesion or biliary ductal dilatation is present. The gallbladder is unremarkable with no evidence of radiopaque gallstones, gallbladder wall thickening, or obvious pericholecystic inflammatory changes. PANCREAS: Unremarkable. SPLEEN: Unremarkable. ADRENAL GLANDS: Unremarkable. KIDNEYS AND URETERS: The kidneys are normal in size, shape, and attenuation. No hydronephrosis, hydroureter, or calculi seen. No perinephric stranding. BLADDER: Unremarkable. GASTROINTESTINAL TRACT: A small hiatal hernia is present. Extensive sigmoid diverticula are present without diverticulitis. The small and large bowel are unremarkable. The appendix is not seen with certainty but there is no evidence of appendicitis. ABDOMINAL WALL: No significant hernia is appreciated. LYMPH NODES: No retroperitoneal lymphadenopathy. VASCULAR: Atherosclerotic changes are present in the abdominal aorta without aneurysm. There is mild aneurysmal dilatation of the right common iliac artery at 2.1 cm perpendicular to a center line. This was slightly smaller in 2010 but difficult to compare because of slice thickness and inability to make a 3-D model for measurements perpendicular to a center line. PELVIC VISCERA: The prostate is no longer present. OSSEOUS STRUCTURES: Degenerative changes are present in the spine. No bony destructive lesions. CT/CT abdomen pelvis wo/w IV con IMPRESSION: 1. No evidence of pancreatic malignancy. 2. 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 Fleischner guidelines were followed.
[2022-10-16] MEDS: iohexoL 350 MG/ML 100 ML INFUS..BTL 85 ML IV (09:32)
== END 2022-10-16 08:36 | disposition home or self-care (01) ==
LOC: HO.CT 08:35
PROVIDERS: PCP Internal Medicine; Visit Provider Internal Medicine
DX: R10.9 Unspecified abdominal pain (principal); Z80.0 Family history of malignant neoplasm of digestive organs
CPT/HCPCS: 74178; Q9967

== ENCOUNTER 2022-11-10 10:37 | Outpatient (REF) | payer MEDICARE, SELFPAY ==
[2022-11-10 11:30] LABS: Blood Urea Nitrogen 16 mg/dL (9-16); Estimated Glomerular Filt Rate > 60
== END 2022-11-10 10:38 | disposition home or self-care (01) ==
LOC: HO.LNP 10:37
PROVIDERS: PCP Internal Medicine; Visit Provider Internal Medicine
DX: M19.90 Unspecified osteoarthritis, unspecified site (principal)
CPT/HCPCS: 82565; 84520

== ENCOUNTER → 2022-12-31 07:56 | Outpatient (REF) | payer MEDICARE, SELFPAY ==
--- NOTE | 2022-12-31 07:59 | CA_ITS ---
Transthoracic Echocardiogram Patient (Last, First, Middle): Saravanan Yarbrough M Gender: Male Date of : 1940 Age: 82 Procedure Date: 12/31/2022 Procedure Type: Transthoracic Echocardiogram Location: OP Height: 175.26 cm Weight: 90.72 kg BSA: 2.07 m2 Heart Rate: bpm BP: 158 / 78 mmHg Maintenance And Repair Worker: DEBI/SEYMOUR Referring MD: Mauri Smith MD Creative Producer: Mauri Smith MD Symptoms: I35.0 - Nonrheumatic aortic (valve) stenosis Study Quality: Fair ECG Rhythm: Sinus Conclusions: - 1. Normal LV ejection fraction of 60 65% with mild LVH with impaired relaxation filling pattern 2. Moderate calcific aortic valve stenosis 3. Mildly dilated ascending aorta 3.8 cm 4. No gross pericardial effusion Findings Left Ventricle Normal left ventricular size and systolic function. There is mildly increased left ventricular wall thickness. The visually estimated ejection fraction is between 60-65%. Spectral Doppler is indicative of an impaired relaxation filling pattern. E/E prime ratio is between 8 and 15 consistent with indeterminate filling pressures. Right Ventricle Normal right ventricular cavity size and systolic function. Atria The left atrium is likely dilated. There is lipomatous hypertrophy of the interatrial septum. There is no evidence of interatrial shunt. The right atrium is likely dilated. Aortic Valve There is moderate calcification of the aortic valve. There is moderate thickening of the aortic valve. There is moderate aortic valve stenosis. The mean gradient is 19 mmHg. There is trace (trivial) aortic valve regurgitation. mean gradient across aortic valve is 19 mmHg with dimensionless index of 0.29. This is more suggestive of moderate aortic stenosis. Description seen valve area is unaccounted for Mitral Valve There is mild anterior and posterior mitral leaflet thickening. There is mild mitral annular calcification. There is trace mitral valve regurgitation. There is no mitral valve stenosis. Pulmonic Valve The pulmonic valve is likely normal. There is trace pulmonic valve regurgitation. Tricuspid Valve Likely normal tricuspid valve structure and function. Tricuspid regurgitation envelope is inadequate for calculation of right ventricular systolic pressure. Normal right atrial pressure. Great Vessels The pulmonary artery was not well visualized. There is mild dilatation of the ascending aorta measuring 3.80 cm. Venous The inferior vena cava is normal in size and collapses greater than 50% with inspiration. Pericardium/Pleural There is no evidence of pericardial effusion. Prior Study Comparison Changes noted compared to prior study dated: 12/31/2021. Ascending aorta is mildly dilated on this study at 3.8 cm Measurements 2D Linear Measurements IVSd: 1.22 0.6-0.9/0.6-1.0 cm LVIDd: 4.25 3.9-5.3/4.2-5.9 cm LVIDd Index: 2.05 2.4-3.2/2.2-3.1 cm/m2 LVIDs: 2.76 2.0-3.6 cm LVPWd: 1.25 0.7-1.1 cm LA Diam: 4.10 2.7-3.8/3.0-4.0 cm LAIDs Index: 1.98 1.5-2.3 cm/m2 LV Mass: 258.85 67-162/88-224 g LV Mass Index: 125.05 43-95/49-115 g/m2 LVOT Diam: 2.10 3.0+(-)1.3 cm 2D Systolic Function EF 4C: 50.90 >55% EF 2C: 71.80 >55% EF BiP: 64.70 >55% Mitral Valve MV Pk E: 0.57 MV PK A: 0.77 MV Decel Time: 324.00 E/A: 0.70 E'Lateral: 4.13 E'Medial: 4.13 E/E' Med: 13.70 E/E' Lat: 13.70 PHT: 95.00 MVA PHT: 2.32 Decel [place]: 1.74 Aortic Valve AoV Pk Alex: 2.87 AoV Mn Alex: 2.07 AoV VTI: 0.70 AoV Pk Grad: 33.00 Aov Mn Grad: 19.00 [place] Cont.VTI: 1.00 LVOT LVOT Pk Alex: 0.75 LVOT Mn Alex: 0.52 LVOT VTI: 0.20 LVOT Pk Grad: 2.00 LVOT Mn Grad: 1.00 LVOT Diam: 2.10 LVOT Area: 3.46 Diastolic Function MV Pk E: 0.57 MV Pk A: 0.77 E/A: 0.70 E'Medial: 4.13 E/E' Med: 13.70 E' Laterial: 4.13 E/E' Lat: 13.70 Right Ventricle TAPSE (mm): 23.80 TVS' Alex: 11.70 Tricuspid Valve RA Press: 3.00 Great Vessels Aorta Sinus of Valsalva: 4.28 2.0-3.[address] [place]: 3.63 1.7-3.4 cm Ao Asc: 3.80 2.1-3.4 cm Updated in Other Vendor System with Status of Final Mauri Smith MD electronically signed on 12/31/2022 10:30:06 AM with status of Final
== END ==
LOC: HO.CARD 07:56
PROVIDERS: PCP Internal Medicine; Visit Provider Internal Medicine Cardiovascular Disease
DX: I35.0 Nonrheumatic aortic (valve) stenosis (principal)
CPT/HCPCS: 93306

== ENCOUNTER → 2022-12-31 07:59 | Outpatient (BNV) | payer MEDICARE, SELFPAY | PROVIDERS: PCP Internal Medicine; Visit Provider Internal Medicine Cardiovascular Disease | DX: I35.0 Nonrheumatic aortic (valve) stenosis (principal) | CPT/HCPCS: 93306 ==

== ENCOUNTER 2023-01-08 15:25 | Outpatient (REF) | payer MEDICARE, SELFPAY ==
[2023-01-08 16:31] LABS: TSH reflex Free T4 1.09 uIU/mL (0.32-4.0)
[2023-01-09 14:13] LABS: HCG Tumor Marker <5 mIU/mL (<5); Lutenizing Hormone 3.7 mIU/mL (1.6-15.2)
[2023-01-12 16:28] LABS: Testosterone, Free 50.5 pg/mL (30.0-135.0); Testosterone, Total 366 ng/dL (250-1100)
[2023-01-15 23:14] LABS: Estradiol Ultra Sensitive 16 pg/mL (< OR = 29)
== END 2023-01-08 15:26 | disposition home or self-care (01) ==
LOC: HO.LNP 15:25
PROVIDERS: Visit Provider Internal Medicine
DX: N62 Hypertrophy of breast (principal); N64.4 Mastodynia
CPT/HCPCS: 82670; 83002; 84402; 84403; 84443; 84702

== ENCOUNTER 2023-01-13 09:21 | Outpatient (AMB) | payer MEDICARE, SELFPAY ==
[2023-01-13 09:43] VITALS: BP 128/74; PULSE 58; BMI 30.8
--- NOTE | 2023-01-13 09:43 | A.OFFVIS_ITS ---
Intake Vital Signs 01/13/23 09:43 Height 5 ft 8 in Weight 202 lb 13.204 oz BMI 30.8 BP 128/74 Blood Pressure Location Lt brachial Position Sitting Pulse 58 Intake Visit Reasons: 1 yr s/p echo Intake Note: 1 year follow-up with ekg feeling good Hospital Clerk Required: No Advertising Assistant Manager: Advertising Assistant Manager Present Accompanied by: Spouse Allergies No Known Allergies [No Known Allergies*] Allergy (Verified 10/16/20 19:50) Medication List - Last Reconciled 01/13/23 by Mauri Smith MD amlodipine 2.5 mg PO DAILY aspirin 81 mg PO DAILY lisinopril-hydrochlorothiazide 20-12.5 mg 1 tab PO DAILY metoprolol succinate ER 25 mg PO DAILY omega-3 fatty acids (Fish Oil Concentrate) 1,000 mg PO DAILY pravastatin 40 mg PO DAILY HPI HPI Comments History of Present Illness Details Saravanan comes for follow-up. He has been doing very well overall from cardiac perspective. Maintains activity level as tolerated without any restrictions. Denies any exertional chest pain or shortness of breath. His most recent LDL is 137 mg/dL, not well optimized. Denies any heart failure symptoms of shortness of breath, orthopnea, PND, leg edema. Denies any prolonged palpitations or irregular heartbeat. Takes all his medications regularly. FOR[facility]LY [facility], [facility] Medical History PVCs (premature ventricular contractions) Aortic stenosis Hypertensive heart disease ACS (acute coronary syndrome) High cholesterol HTN (hypertension) Surgical History History of appendectomy Family History Father No problems noted. Mother No problems noted. Social History Household Members: Spouse Housing: House Do you presently have visiting nurse or other home services: No Alcohol intake: never Patient Tobacco Use Status: Former Tobacco user service: No Current occupational status: retired Review of Systems Const Denies chills, Denies fatigue, Denies fever(s), Denies frequent falls, Denies weakness, Denies weight gain and Denies weight loss ENT Denies dizziness Card Denies chest pain, Denies leg edema, Denies lightheadedness, Denies palpitations, Denies dyspnea, Denies dyspnea on exertion, Denies orthopnea and Denies other (loss of consciousness) Resp Denies cough, Denies dyspnea and Denies dyspnea on exertion GI Denies hematochezia and Denies change in stool character Musc Denies abnormal gait, Denies muscle weakness, Denies numbness, Denies radiating pain into limb and Denies tingling Neuro Denies Abnormal speech present, Denies abnormal gait, Denies dizziness, Denies frequent falls, Denies numbness, Denies tingling and Denies weakness Endo Denies fatigue and Denies palpitations Physical Exam Vital Signs: Last Vital Signs Pulse 58 01/13/23 09:43 BP 128/74 01/13/23 09:43 BMI result Body Mass Index 30.8 Const General: cooperative, comfortable, no acute distress, alert and awake Nutritional Appearance: overweight Orientation/consciousness: patient oriented x3 Limitations: no limitations Neck Neck: Yes trachea midline, Yes supple and No no JVD Chest Chest palpation & inspection: normal inspection of the chest Resp Effort & Inspection: normal respiratory effort Auscultation: clear to auscultation bilaterally and diminished lung sounds Cardio Jugular venous distension: no JVD Palpation: normal PMI Rate: regular rate Rhythm: regular rhythm Heart sounds: S1 normal heart sound present, S2 normal heart sound present, no click, no gallops and Murmur heart sound present systolic mid, decrescendo and crescendo GI Inspection: Yes obesity Auscultation: normal bowel sounds Skin General skin exam: no rashes or lesions noted Neuro General: patient oriented x3 and no focal motor deficits Speech: No Abnormal speech present Extrem General: Yes no clubbing, cyanosis or edema Office Procedures EKG Details: EKG shows sinus bradycardia with first-degree AV block with lateral ST depression suggestive of repolarization abnormality with QS pattern in lead V1 and V2 with ST elevation most likely suggestive hypertensive heart disease. [id number], Complete Assessment & Plan Assessment & Plan (1) Aortic stenosis: Code(s): I35.0 - Nonrheumatic aortic (valve) stenosis Plan: Aortic stenosis which is of moderate severity. Currently remains stable. Has no limiting symptoms whatsoever at this point time. Advised to continue to monitor annually by echocardiogram. We discussed about cardinal symptoms associated with aortic stenosis and advised to call me with any new symptoms. Continue aggressive risk factor modification. Blood pressure is well optimized, see below. Continue low-dose aspirin therapy. His lipids are not well optimized but he is not willing to add any further therapy and says he is happy with current pravastatin dose. (2) Hypertensive heart disease: Code(s): I11.9 - Hypertensive heart disease without heart failure Plan: Hypertensive heart disease causing abnormal EKG. Clinically blood pressure is well optimized. Has no signs or symptoms of heart failure. Advised to continue to monitor blood pressure at home maintain a log. Goal blood pressure less than 130/84. Signs and symptoms of heart failure were discussed. Low-salt diet was discussed. Continue maintain activity level as tolerated. (3) PVCs (premature ventricular contractions): Code(s): I49.3 - Ventricular premature depolarization Plan: Prior history of PVCs with no new symptoms. Clinically doing well with low-dose metoprolol therapy. Continue the same. Avoidance of stimulants was discussed. Stress mitigation strategy was discussed. Will follow up in the clinic in 1 year's time, sooner p.r.n.. Thank you for allowing me to partake in his care Orders: Orders CA echo transthoracic complete 50 Weeks I35.0 - Nonrheumatic aortic (valve) stenosis Coding Level of Care Code Est Pt Level 4 (55253) Diagnoses Aortic stenosis I35.0 Hypertensive heart disease I11.9 PVCs (premature ventricular contractions) I49.3 CPT Codes EKG - CPT: 81286-[id number], Complete ([id number])
== END 2023-01-13 10:03 | disposition home or self-care (01) ==
PROVIDERS: Visit Provider Internal Medicine Cardiovascular Disease
DX: I35.0 Nonrheumatic aortic (valve) stenosis (principal); I11.9 Hypertensive heart disease without heart failure; I49.3 Ventricular premature depolarization
CPT/HCPCS: 93010; 99214

== ENCOUNTER → 2023-01-13 09:21 | Outpatient (BNVA) | payer MEDICARE, SELFPAY | PROVIDERS: Visit Provider Internal Medicine Cardiovascular Disease | DX: I35.0 Nonrheumatic aortic (valve) stenosis (principal); I49.3 Ventricular premature depolarization; I11.9 Hypertensive heart disease without heart failure | CPT/HCPCS: 93005; 99212 ==

== ENCOUNTER 2023-03-06 10:49 | Outpatient (REF) | payer MEDICARE, SELFPAY | END 2023-03-06 10:50 | disposition home or self-care (01) | LOC: HO.LNP 10:49 | PROVIDERS: Visit Provider Internal Medicine | DX: E11.40 Type 2 diabetes mellitus with diabetic neuropathy, unspecified (principal); E78.00 Pure hypercholesterolemia, unspecified | CPT/HCPCS: 80061; 80076; 82947; 83036 ==

== ENCOUNTER 2023-08-11 10:31 | Outpatient (REF) | payer MEDICARE, SELFPAY ==
--- NOTE | ~2023-08-11 | XR_ITS ---
EXAMINATION: XR CHEST CLINICAL INFORMATION: Cough. COMPARISON: May 17, 2021 TECHNIQUE: 2 views of the chest were obtained. FINDINGS: There is no gross pneumothorax. Degenerative changes in the thoracic spine with dextroscoliosis. Heart size within normal limits. No pleural effusion. Moderate bibasilar opacities characteristic of subsegmental atelectasis, although an infectious/inflammatory process could also be considered. XR/XR chest 2V IMPRESSION: Moderate bibasilar opacities characteristic of subsegmental atelectasis, although an infectious/inflammatory process could also be considered.
== END 2023-08-11 10:32 | disposition home or self-care (01) ==
LOC: HO.XRAY 10:31
PROVIDERS: PCP Internal Medicine; Visit Provider Internal Medicine
DX: R05.9 Cough, unspecified (principal)
CPT/HCPCS: 71046

== ENCOUNTER 2023-09-01 11:32 | Outpatient (REF) | payer MEDICARE, SELFPAY ==
[2023-09-01 11:38] LABS: MANUAL DIFF FLAG NO
[2023-09-01 12:21] LABS: Basophils Percent Auto 0.7 % (0-2); Eosinophils Absolute Auto 0.2 X10*3/uL (0.0-0.4); Eosinophils Percent Auto 3.7 % (0-4); Hematocrit 44.5 % (42.0-52.0); Hemoglobin 15.1 g/dl (14.0-18.0); Imm Gran Abs Auto 0.02 X10*3/uL (0.00-0.03); Imm Gran Pct Auto 0.4 % (0.0-0.4); Lymphocytes Absolute Auto 1.5 X10*3/uL (1.2-4.9); Mean Corpuscular HGB Conc 33.9 g/dl (31.0-36.0); Mean Corpuscular Hemoglobin 27.6 pg (27.0-33.0); Mean Corpuscular Volume 81.4 fL (80.0-98.0); Mean Platelet Volume 10.2 fL (9.4-12.4); Monocytes Absolute Auto 0.5 X10*3/uL (0.1-1.2); Monocytes Percent Auto 9.4 % (2-11); Neutrophils Absolute Auto 3.3 x10*3/uL (2.0-8.3); Neutrophils Percent Auto 58.8 % (45-73); Platelet Count 180 X10*3/uL (160-400); Red Blood Count 5.47 X10*6/uL (4.60-5.80); Red Cell Distribution Width 13.7 % (11.0-16.0); White Blood Count 5.6 X10*3/uL (4.8-10.8)
[2023-09-01 12:32] LABS: Estimated Average Glucose 114 mg/dL; Hemoglobin A1C 149.9419 umol/L; Hemoglobin A1c % 5.6 % (<6.0)
[2023-09-01 12:43] LABS: Alanine Aminotransferase 14 U/L (0-40); Alkaline Phosphatase 64 U/L (39-117); Anion Gap 12 (12-20); Aspartate Amino Transferase 19 U/L (5-37); Bilirubin Total 0.6 mg/dL (0.0-1.0); Blood Urea Nitrogen 16 mg/dL (9-16); Calcium 9.2 mg/dL (8.4-10.2); Carbon Dioxide 28 mmol/L (22-29); Chloride 106 mmol/L (96-108); Cholesterol 197 mg/dL (<200); Estimated Glomerular Filt Rate > 60; Glucose Fasting 100 mg/dL (60-99); HDL Cholesterol 48 mg/dL (>40); LDL Cholesterol Calculated 127 mg/dL (<100); Potassium 3.6 mmol/L (3.3-5.1); Sodium 142 mmol/L (135-145); Total Protein 6.6 g/dL (6.5-8.0); Triglycerides 112 mg/dL (<150)
[2023-09-01 12:50] LABS: Appearance Urine Clear; Color Urine Yellow; Glucose Urine UA Negative (Negative); Leukocyte Esterase Urine Negative (Negative); Nitrite Urine Negative (Negative); Specific Gravity - Urine 1.025 (1.005-1.025); Urine Blood Negative (Negative); Urine Ketones Negative (Negative); Urine Protein Negative (Neg-Trace)
[2023-09-01 12:57] LABS: PSA,Total (Free>4and<10) < 0.10 ng/mL (0.00-4.00)
[2023-09-01 13:13] LABS: Creatinine Urine 171.09 mg/dL; Microalbum/Creatinine Ratio Ur 5.2 ug/mg cr (<30)
[2023-09-01 13:47] LABS: Bacteria Urine None Seen (None Seen); Calcium Oxalate Crystals Urine Present; Hyaline Casts Urine 0-2 /LPF (0-2); RBC Urine 0-2 /HPF (0-2); Squamous Epithelial Cell Urine 0-2 /HPF (0-2); WBC Urine 0-5 /HPF (0-5)
== END 2023-09-01 11:33 | disposition home or self-care (01) ==
LOC: HO.LNP 11:32
PROVIDERS: Visit Provider Internal Medicine
DX: E11.40 Type 2 diabetes mellitus with diabetic neuropathy, unspecified (principal); Z12.5 Encounter for screening for malignant neoplasm of prostate; I10 Essential (primary) hypertension; E78.00 Pure hypercholesterolemia, unspecified
CPT/HCPCS: 80053; 80061; 81001; 82043; 82570; 83036; 84153; 85025

== ENCOUNTER 2023-10-01 07:30 | Outpatient (REF) | payer MEDICARE, SELFPAY ==
--- NOTE | ~2023-10-01 | US_ITS ---
EXAMINATION: US RETROPERITONEAL LIMITED (AORTA) CLINICAL INFORMATION: Aneurysm of iliac artery. COMPARISON: CT abdomen and pelvis 10/16/2022. TECHNIQUE: Gagnon-scale, color Doppler and spectral Doppler evaluation of the abdominal aorta. FINDINGS: Limited visualization due to bowel gas. The measurements of the aorta in maximum AP and transverse dimensions respectively are as follows: Proximal: 2.9 x 2.2 cm. Mid: 2.2 x 2.2 cm. Distal: 1.8 x 1.9 cm. PSV: 138 cm/s. The measurements of the common iliac arteries in maximum AP and TRV dimensions are as follows: Right Common Iliac Artery: 1.6 x 1.3 cm. Left Common Iliac Artery: 1.4 x 1.6 cm. Aneurysmal dilatation of the right common iliac artery which measures 2.8 cm in AP diameter proximally and 1.6 cm distally; however, visualization is severely limited due to bowel gas and body habitus. US/US aorta IMPRESSION: Aneurysmal dilatation of the right common iliac artery which measures 2.8 cm in AP diameter proximally and 1.6 cm distally; however, visualization is severely limited due to bowel gas and body habitus. CT scan recommended for further evaluation.
== END 2023-10-01 07:31 | disposition home or self-care (01) ==
LOC: HO.US 07:30
PROVIDERS: PCP Internal Medicine; Visit Provider Internal Medicine
DX: I72.3 Aneurysm of iliac artery (principal)
CPT/HCPCS: 76775

== ENCOUNTER → 2023-12-28 08:34 | Outpatient (REF) | payer MEDICARE, SELFPAY ==
--- NOTE | 2023-12-28 08:37 | CA_ITS ---
Transthoracic Echocardiogram Patient (Last, First, Middle): Saravanan Yarbrough M Gender: Male Date of : 1940 Age: 83 Procedure Date: 12/28/2023 Procedure Type: Transthoracic Echocardiogram Location: OP Height: 175.26 cm Weight: 90.72 kg BSA: 2.07 m2 Heart Rate: 51 bpm BP: 170 / 66 mmHg Primary Teaching Assistant: SB Referring MD: Mauri Smith MD Symptoms: I35.0 - Nonrheumatic aortic (valve) stenosis Study Quality: Adequate ECG Rhythm: Bradycardia Conclusions: - The left ventricular systolic function is normal. The calculated ejection fraction is 58% by biplane method. - There is moderate calcification of the aortic valve. There is moderate aortic valve stenosis. Findings Left Ventricle Normal left ventricular cavity size. There is mildly increased left ventricular wall thickness. The left ventricular systolic function is normal. The calculated ejection fraction is 58% by biplane method. There is no evidence of regional wall motion abnormalities. E/E prime ratio is >15, consistent with elevated filling pressures. Evidence suggests grade I (mild) diastolic dysfunction. Right Ventricle Normal right ventricular cavity size and systolic function. Atria The left atrium is mildly dilated. The right atrium is normal in size. Aortic Valve There is moderate calcification of the aortic valve. There is moderate aortic valve stenosis. The peak aortic velocity is 3.04 m/s with a calculated peak gradient of 37 mmHg. The mean gradient is 22 mmHg. The aortic valve area is 1.10 cm2. Dimensionless index 0.26. Stroke volume index 40 mL/m2. Mitral Valve The mitral valve appears normal. There is trace mitral valve regurgitation. There is no mitral valve stenosis. Pulmonic Valve The pulmonic valve is likely normal. Tricuspid Valve Normal tricuspid valve structure. There is trace tricuspid valve regurgitation. There is no evidence of pulmonary hypertension. Great Vessels The asc aorta is normal in size. Venous The inferior vena cava is normal in size and collapses greater than 50% with inspiration. Pericardium/Pleural There is no evidence of pericardial effusion. Prior Study Comparison No significant change compared to prior study dated: 12/31/2022. Measurements 2D Linear Measurements IVSd: 1.22 0.6-0.9/0.6-1.0 cm LVIDd: 5.05 3.9-5.3/4.2-5.9 cm LVIDd Index: 2.44 2.4-3.2/2.2-3.1 cm/m2 LVIDs: 2.95 2.0-3.6 cm LVPWd: 1.17 0.7-1.1 cm LA Diam: 4.70 2.7-3.8/3.0-4.0 cm LAIDs Index: 2.27 1.5-2.3 cm/m2 LV Mass: 294.36 67-162/88-224 g LV Mass Index: 142.21 43-95/49-115 g/m2 LVOT Diam: 2.30 3.0+(-)1.3 cm 2D Systolic Function EF 4C: 55.60 >55% EF 2C: 58.90 >55% EF BiP: 58.30 >55% Mitral Valve MV Pk E: 0.75 MV PK A: 0.66 MV Decel Time: 232.00 E/A: 1.10 E'Lateral: 6.09 E'Medial: 4.24 E/E' Med: 17.70 E/E' Lat: 12.30 PHT: 68.00 MVA PHT: 3.24 Decel Mckean: 3.24 Aortic Valve AoV Pk Alex: 3.04 AoV Mn Alex: 2.21 AoV VTI: 0.74 AoV Pk Grad: 37.00 Aov Mn Grad: 22.00 [place] Cont.VTI: 1.10 LVOT LVOT Pk Alex: 0.80 LVOT Mn Alex: 0.56 LVOT VTI: 0.20 LVOT Pk Grad: 3.00 LVOT Mn Grad: 1.00 LVOT Diam: 2.30 LVOT Area: 4.15 Diastolic Function MV Pk E: 0.75 MV Pk A: 0.66 E/A: 1.10 E'Medial: 4.24 E/E' Med: 17.70 E' Laterial: 6.09 E/E' Lat: 12.30 Right Ventricle TAPSE (mm): 19.40 TVS' Alex: 12.10 Tricuspid Valve TR Pk Alex: 2.17 TR Pk Grad: 19.00 RA Press: 3.00 RVSP: 22.00 Great Vessels Aorta Sinus of Valsalva: 4.30 2.0-3.5 cm Ao Asc: 3.80 2.1-3.4 cm Pulmonary Valve PV Pk Alex: 1.09 Peak PV Grad: 5.00 Updated in Other Vendor System with Status of Final Jeferson Naranjo MD electronically signed on 12/28/2023 11:22:06 AM with status of Final
== END ==
LOC: HO.CARD 08:34
PROVIDERS: PCP Internal Medicine; Visit Provider Internal Medicine Cardiovascular Disease
DX: I35.0 Nonrheumatic aortic (valve) stenosis (principal)
CPT/HCPCS: 93306

== ENCOUNTER → 2023-12-28 08:37 | Outpatient (BNV) | payer MEDICARE, SELFPAY | PROVIDERS: PCP Internal Medicine; Visit Provider Internal Medicine | DX: I35.0 Nonrheumatic aortic (valve) stenosis (principal); I35.8 Other nonrheumatic aortic valve disorders; I51.89 Other ill-defined heart diseases | CPT/HCPCS: 93306 ==

== ENCOUNTER 2024-01-07 14:29 | Outpatient (AMB) | payer MEDICARE, SELFPAY ==
--- NOTE | 2024-01-07 14:32 | A.OFFVIS_ITS ---
Vital Signs 01/07/24 14:33 Height 5 ft 8 in Weight 202 lb 13.204 oz BMI 30.8 BP 120/60 Blood Pressure Location Lt brachial Position Sitting Pulse 58 Pulse Source Monitor Intake Visit Reasons: 1 yr s/p echo Allergies No Known Allergies [No Known Allergies*] Allergy (Verified 10/16/20 19:50) Medication List - Last Reconciled 01/07/24 by Mauri Smith MD amlodipine 2.5 mg PO DAILY lisinopril-hydrochlorothiazide 20-12.5 mg 1 tab PO DAILY metoprolol succinate ER 25 mg PO DAILY omega-3 fatty acids (Fish Oil Concentrate) 1,000 mg PO DAILY pravastatin 40 mg PO DAILY HPI Comments Details: Saravanan comes for follow-up. He comes for annual follow-up of his aortic stenosis. He is currently not taking a baby aspirin therapy. He denies any cardiac symptoms. Remains very active and denies any symptoms exertional chest pain, shortness of breath or lightheadedness. No heart failure symptoms. No symptoms of claudications. Takes all his medications. Last LDL 129 mg/dL which is not well optimized. [facility] Medical History PVCs (premature ventricular contractions) Aortic stenosis Hypertensive heart disease ACS (acute coronary syndrome) High cholesterol HTN (hypertension) Surgical History History of appendectomy Family History Father No problems noted. Mother No problems noted. Social History Household Members: Spouse Housing: House Do you presently have visiting nurse or other home services: No Alcohol intake: never Patient Tobacco Use Status: Former Tobacco user service: No Current occupational status: retired Review of Systems Const Denies weakness ENT Denies dizziness Card Denies chest pain, Denies chest pain with activity, Denies syncope, Denies rapid heart rate, Denies pedal edema, Denies edema, Denies leg edema, Denies lightheadedness, Denies palpitations, Denies dyspnea, Denies dyspnea on exertion and Denies orthopnea Resp Denies cough, Denies dyspnea and Denies dyspnea on exertion GI Denies hematochezia and Denies change in stool character Musc Denies abnormal gait, Denies muscle cramps, Denies muscle weakness, Denies numbness, Denies radiating pain into limb and Denies tingling Neuro Denies Abnormal speech present, Denies abnormal gait, Denies dizziness, Denies syncope, Denies numbness, Denies tingling and Denies weakness Endo Denies palpitations Physical Exam Const General: cooperative, comfortable, no acute distress, alert and awake Nutritional Appearance: overweight Orientation/consciousness: patient oriented x3 Limitations: no limitations Neck Neck: Yes trachea midline, Yes supple and No no JVD Chest Chest palpation & inspection: normal inspection of the chest Resp Effort & Inspection: normal respiratory effort Auscultation: clear to auscultation bilaterally and diminished lung sounds Cardio Jugular venous distension: no JVD Palpation: normal PMI Rate: regular rate Rhythm: regular rhythm Heart sounds: S1 normal heart sound present, S2 normal heart sound present, no click, no gallops and Murmur heart sound present systolic mid, decrescendo and crescendo GI Inspection: Yes obesity Auscultation: normal bowel sounds Skin General skin exam: no rashes or lesions noted Neuro General: patient oriented x3 and no focal motor deficits Speech: No Abnormal speech present Extrem General: Yes no clubbing, cyanosis or edema Office Procedures EKG Details: EKG shows normal sinus rhythm at heart rate of 58 beats per minute with LVH with repolarization abnormality 10717-[id number], Complete Assessment & Plan Assessment & Plan (1) Aortic stenosis: Code(s): I35.0 - Nonrheumatic aortic (valve) stenosis Category: Medical Plan: Patient with stable moderate aortic stenosis with no cardiac symptoms at this point time. We discussed about cardinal symptoms associated with aortic stenosis. Advised to call me with any new symptoms. Will follow with echocardiogram in 1 year's time. Continue aggressive vascular risk factor modification. We discussed about intensifying lipid modification and he is not interested in alternative statin therapy given his prior side effects. We discussed about possibly of adding ezetimibe to his regimen to target goal LDL hopefully less than 70 mg/dL. He will think about it. Also recommend low-dose aspirin therapy for neuro protection with aortic stenosis. He will start the t herapy. (2) PVCs (premature ventricular contractions): Code(s): I49.3 - Ventricular premature depolarization Category: Medical Plan: PVCs without any obvious symptoms. No change in pharmacotherapy is recommended. (3) Hypertensive heart disease: Code(s): I11.9 - Hypertensive heart disease without heart failure Category: Medical Plan: Hypertension which is currently well optimized on current therapy. Importance of good blood pressure control was discussed. Continue amlodipine, lisinopril hydrochlorothiazide and metoprolol combination. Advised to monitor blood pressure at home. Goal blood pressure less than 130/84. Low-salt diet. Advised to maintain activity level as tolerated. He has findings of LVH suggestive of hypertensive heart disease but without any clinical findings of congestive heart failure. Will follow up in the clinic in 1 year's time after an echocardiogram. Thank you for allowing me to partake in his care Medications: New aspirin (Ecotrin Low Strength) 81 mg PO DAILY 30 tabs 11RF Coding Level of Care Code Est Pt Level 4 (76326) Complex EM visit Add On G2211 Diagnoses Aortic stenosis I35.0 PVCs (premature ventricular contractions) I49.3 Hypertensive heart disease I11.9 CPT Codes EKG - CPT: 91169-[id number], Complete ([id number])
[2024-01-07 14:33] VITALS: BP 120/60; PULSE 58; BMI 30.8
== END 2024-01-07 14:55 | disposition home or self-care (01) ==
PROVIDERS: PCP Internal Medicine; Visit Provider Internal Medicine Cardiovascular Disease
DX: I35.0 Nonrheumatic aortic (valve) stenosis (principal); I49.3 Ventricular premature depolarization; I11.9 Hypertensive heart disease without heart failure
CPT/HCPCS: 93010; 99214; G2211

== ENCOUNTER → 2024-01-07 14:29 | Outpatient (BNVA) | payer MEDICARE, SELFPAY | PROVIDERS: PCP Internal Medicine; Visit Provider Internal Medicine Cardiovascular Disease | DX: I35.0 Nonrheumatic aortic (valve) stenosis (principal); I49.3 Ventricular premature depolarization; I11.9 Hypertensive heart disease without heart failure; I44.0 Atrioventricular block, first degree | CPT/HCPCS: 93005; 99212 ==

== ENCOUNTER 2024-02-12 12:40 | Outpatient (AMB) | payer MEDICARE, SELFPAY ==
--- OUTSIDE RECORDS SUMMARY | 2024-02-12 12:42 | XMS_ITS ---
Author Organization Boone Oconnell MD Address [address] [place], [place] [id number] Care Team Providers Care Defensive Secondary Coach Name Role Phone Boone Oconnell Primary Care Provider ALLERGIES Allergen (clinical drug ingredient) Drug/Non Drug Allergy documented on EMR Reaction Allergy Type Onset Date Status simvastatin Simvastatin myalgia Drug Allergy Act yakov atorvastatin Lipitor myalgia Drug Allergy Acti ve REASON FOR VISIT left groin pain x 2 weeks MEDICATIONS Medication SIG (Take, Route, Frequency, Duration) Notes Start Date End Date Status Lisinopril-hydroCHLOROthi azide 20-12.5 MG TAKE 1 TABLET BY MOUTH EVERY DAY FOR 90 DAYS Orally Once a day for 90 days Active amLODIPine Besylate 5 MG TAKE 1 TABLET B Y MOUTH EVERY DAY FOR 90 DAYS Orally Once a day for 90 days Active Pravastatin Sodium 40 MG TAKE 1 TABLET B Y MOUTH EVERY DAY Orally Once a day for 90 days Active Metoprolol Succinate ER 25 MG TAKE 1 TABLET BY MOUTH EVERY DAY FOR 90 DAYS Orally Once a day for 90 days Active Fish Oil 1000 MG 1 capsule Orally Onc e a day Active Valtrex 1 GM 1 tablet Orally twic e a day for 5 days 05/17/2020 Not-Taking ProAir RespiClick 108 (90 Base) MCG/ACT 2 puff as needed Inhalation every 4 hrs for 30 days 08/15/2016 Not-Taking Omeprazole 20 MG take one capsule ethan ry day Orally Once a day for 90 days Not-Taking CeleBREX 200 MG 1 capsule Orally Onc e a day for 30 Not-Taking Nitrostat 0.4 MG 1 tablet under the tongue Sublingual every 8 hrs for 30 day(s) 03/04/2011 Not-Taking Meloxicam 15 MG 1 tablet Orally Once a day for 30 day(s) 09/08/2022 Not-Taking VITAL SIGNS BMI 31.47 kg/m2 11/03/2023 Blood pressure systolic 142 mm Hg 11/03/19 24 Blood pressure diastolic 60 mm Hg 024 Height 68 in 11/03/2023 Weight 207 lbs 11/03/2023 weight is up 3 pounds since 10-20-23 Encounters Encounter Location Date Provider Diagnosis Boone Oconnell MD [address] [place] [address] Drive [address] [place], [place] [phone] 11/03/2023 Boone Oconnell Muscle strain T14.8XXA ASSESSMENTS Encounter Date Diagnosis Assessment Notes Treatment Notes Treatment Clinical Notes 11/03/2023 Muscle strain (ICD-10 - T14.8XXA) observe. the pain is not actually bothering him much but was just worried that he had a hernia. the area of concern is not int the area of hernias. 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 he was mostly concerned about hernias PLAN OF TREATMENT Treatment Notes Assessment Notes Muscle strain observe. the pain is not actually bothering him much but was just worried that he had a hernia. the area of concern is not int the area of hernias. 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 he was mostly concerned about hernias Next Appt Details Provider Name:Boone Barber ier, 03/11/2024 08:00:00 AM, [address] [place] [address], [address], [place], [phone], Provider Name:Boone anne, 03/17/2024 09:00:00 AM, [address] [place] [address], Suite [facility], [place], [phone], Provider Name:Boone anne, 09/05/2024 07:15:00 AM, [address] [place] [address], Suite [facility], [place], [phone], Provider Name:Boone anne, 09/09/2024 09:30:00 AM, [address] [place] [address], Suite [facility], [place], [place], [phone], Progress Notes * Examination Category Sub-Category Detail Notes General Examination GENERAL APPEARANCE: alert, w ell hydrated, in no distress MUSCULOSKELETAL: the area is not the area of hernias. is in inner upper thigh. no hernias in that area
--- OUTSIDE RECORDS SUMMARY | 2024-02-12 12:42 | XMS_ITS ---
Author Organization Boone Oconnell MD Address [address] [place], [place] [phone] Care Team Providers Care Egg Crater Name Role Phone Boone Oconnell Primary Care Provider ALLERGIES Allergen (clinical drug ingredient) Drug/Non Drug Allergy documented on EMR Reaction Allergy Type Onset Date Status simvastatin Simvastatin myalgia Drug Allergy Act yakov atorvastatin Lipitor myalgia Drug Allergy Acti ve REASON FOR VISIT post ERVisit chest pain, Audio [phone] MEDICATIONS Medication SIG (Take, Route, Frequency, Duration) Notes Start Date End Date Status ProAir RespiClick 108 (90 Base) MCG/ACT 2 puff as needed Inhalation every 4 hrs for 30 days 08/15/2016 Not-Taking CeleBREX 200 MG 1 capsule Orally Onc e a day for 30 Not-Taking Valtrex 1 GM 1 tablet Orally twic e a day for 5 days 05/17/2020 Not-Taking Omeprazole 20 MG take one capsule ethan ry day Orally Once a day for 90 days Not-Taking Nitrostat 0.4 MG 1 tablet under the tongue Sublingual every 8 hrs for 30 day(s) 03/04/2011 Not-Taking Metoprolol Succinate ER 25 MG TAKE 1 TABLET BY MOUTH EVERY DAY FOR 90 DAYS Orally Once a day for 90 days Active Pravastatin Sodium 40 MG TAKE 1 TABLET B Y MOUTH EVERY DAY Orally Once a day for 90 days Active Lisinopril-hydroCHLOROthi azide 20-12.5 MG TAKE 1 TABLET BY MOUTH EVERY DAY FOR 90 DAYS Orally Once a day for 90 days Active Meloxicam 15 MG 1 tablet Orally Once a day for 30 day(s) 09/08/2022 Not-Taking amLODIPine Besylate 5 MG TAKE 1 TABLET B Y MOUTH EVERY DAY FOR 90 DAYS Orally Once a day for 90 days Active Fish Oil 1000 MG 1 capsule Orally Onc e a day Active VITAL SIGNS BMI 31.01 kg/m2 10/20/2023 Height 68 in 10/20/2023 Weight 204 lbs 10/20/2023 weight at home is 204 BP not taken today Encounters Encounter Location Date Provider Diagnosis Boone Oconnell MD [address] [place] [address] [place] [phone] 10/20/2023 Boone Oconnell Atypical chest pain R07.89 ASSESSMENTS Encounter Date Diagnosis Assessment Notes Treatment Notes Treatment Clinical Notes 10/20/2023 Atypical chest pain (ICD-10 - R07.89) no treatment needed. reviewed the er visit from [facility] and the work up was negative and had a ct angio which showed no aneurysm in the iliac artery PLAN OF TREATMENT Treatment Notes Assessment Notes Atypical chest pain no treatment needed. reviewed the er visit from [facility] and the work up was negative and had a ct angio which showed no aneurysm in the iliac artery Next Appt Details Provider Name:Boone anne, 03/11/2024 08:00:00 AM, [address] [place] [address], [address], [place], [place], [phone], Provider Name:Boone anne, 03/17/2024 09:00:00 AM, [address] [place] [address], [address], [place], [place], [phone], Provider Name:Boone anne, 09/05/2024 07:15:00 AM, [address] [facility], [address], [place], [place], [phone], Provider Name:Boone anne, 09/09/2024 09:30:00 AM, [address] [place] [address], [address], [place], [place], [phone], History and Physical Notes * HPI (History of Present Illness) Category Sub-Category Detail Notes Symptom(s) Telehealth Location of prov ider rendering services:: [address] [place] [address], [address] Location of patient:: other (please spec niels) at work in [place] Patient identification confi rmed using:: Name, , SSN, Insurance information Telehealth method:: Telephon e only. Patient not visible to care provider. Consent:: Patient verbally c onsented to treatment, Patient verbally consented to billing insurance company, Patient informed of any privacy concerns related to method of visit Total time spend talking with patient (m inutes): 10
--- OUTSIDE RECORDS SUMMARY | 2024-02-12 12:42 | XMS_ITS ---
Author Organization Boone Oconnell MD Address [address] [place] [phone] Care Team Providers Care Chargeback Analyst Name Role Phone Boone Oconnell Primary Care Provider REASON FOR VISIT ER Visit rec'd Encounters Encounter Location Date Provider Diagnosis Boone Oconnell MD [address] [facility] [address] [place] [phone] 10/16/2023 Boone Oconnell PLAN OF TREATMENT Next Appt Details Provider Name:Boone anne, 03/11/2024 08:00:00 AM, [address] [place] [address], [address], [phone], Provider Name:Boone anne, 03/17/2024 09:00:00 AM, [address] [place] [address], [address], [phone], Provider Name:Boone anne, 09/05/2024 07:15:00 AM, [address], [address], [place], [phone], Provider Name:Boone anne, 09/09/2024 09:30:00 AM, [address], [address], [place], [phone],
--- OUTSIDE RECORDS SUMMARY | 2024-02-12 12:42 | XMS_ITS | Patient Health Record ---
Author Organization Boone Oconnell MD Address [address] [place], [place] [id number] Care Team Providers Care Welt Wheeler Name Role Phone Boone Oconnell Primary Care Provider ALLERGIES Allergen (clinical drug ingredient) Drug/Non Drug Allergy documented on EMR Reaction Allergy Type Onset Date Status simvastatin Simvastatin myalgia Drug Allergy Act yakov atorvastatin Lipitor myalgia Drug Allergy Acti ve RESULTS Component Value Reference Range Notes Liver Panel Reviewed date:03/06/2023 11:43:15 AM Interpretation: Performing Lab:[facility], [address] [place] [phone] Notes/Report: Bilirubin Total 1.0 0.0-1.0 mg/dL Bilirubin Direct 0.3 0.0-0.5 mg/dL Aspartate Amino Transferase 16 5-37 U/L Alanine Aminotransferase 18 0-40 U/L Total Protein 6.4 6.5-8.0 g/dL Albumin Level 3.9 3.5-5.0 g/dL Alkaline Phosphatase 66 39-117 U/L Glucose Fasting Reviewed date:03/06/2023 11:40:22 AM Interpretation: Performing Lab:[facility], [address] [place] [phone] Notes/Report: Glucose Fasting 98 60-99 mg/dL Lipid Panel with Reflex Reviewed date:03/07/2023 05:24:50 PM Interpretation: Performing Lab:[address] [phone] Notes/Report: Triglycerides 97 <150 mg/dL Desirable Triglyceride: less than 150 mg/dL Borderline High Triglyceride 150-199 mg/dL High Triglyceride: 200-499 mg/dL Very High Triglyceride: greater than or equal to 5OO mg/dL Cholesterol 218 <200 mg/dL Desirable Cholesterol: less than 200 mg/dL Borderline High Cholesterol: 200-239 mg/dL High Cholesterol: greater than 239 mg/dL LDL Cholesterol Calculated 149 <100 mg/dL Desirable LDL: less than 100 mg/dL Near Optimal/Above Optimal LDL: 110-129 mg/dL Borderline High LDL: 130-159 mg/dL High LDL: 160-189 mg/dL Very High LDL: greater than or equal to 190 mg/dL HDL Cholesterol 50 >40 mg/dL Desirable HDL: greater than 40 mg/dL Note: This HDL assay may give artificially low results in patients with liver disease. Hemoglobin A1c Reviewed date:03/06/2023 11:39:57 AM Interpretation: Performing Lab:[address] [phone] Notes/Report: Hemoglobin A1c % 5.6 <6.0 % Hemoglobin A1C Reference Range Adults: 4.8 - 6.0 % Non diabetic: < 6.0 % Goal: < 7.0 % Additional Action Suggested: > 8.0 % Note: Hemoglobin A1c results are invalid for patients with abnormal amounts of HbF. Blood transfusions may impact the HbA1c concentration in the patient sample. Estimated Average Glucose 114 eAG = Estimated average glucose which is %A1C expressed as average glucose, using the formula of the Z5A-Njaaumo Average Glucose study (ADAG), Diabetes Care, Vol.31,#8, Sep. 2007 XR chest 2V Reviewed date:08/24/2023 05:24:58 PM Interpretation: Performing Lab: Notes/Report: [address] [address] XRay Report Signed Patient: Saravanan Yarbrough MR#: [id number] : 1940 Acct:[id number] Age/Sex: 82 / M ADM Date: 08/11/23 Loc: HO.XRAY Attending Dr: Boone Oconnell MD Ordering Physician: Boone Oconnell MD Date of Service: 08/11/23 Procedure(s): XR chest 2V Accession Number(s): [id number] cc: Boone Oconnell MD EXAMINATION: XR CHEST CLINICAL INFORMATION: Cough. COMPARISON: May 17, 2021 TECHNIQUE: 2 views of the chest were obtained. FINDINGS: There is no gross pneumothorax. Degenerative changes in the thoracic spine with dextroscoliosis. Heart size within normal limits. No pleural effusion. Moderate bibasilar opacities characteristic of subsegmental atelectasis, although an infectious/inflammatory process could also be considered. XR/XR chest 2V IMPRESSION: Moderate bibasilar opacities characteristic of subsegmental atelectasis, although an infectious/inflammatory process could also be considered. Dictated By: Nelida Chairez MD Signed By: <Electronically signed by Nelida Chairez MD in OV> 08/24/23 1100 DD/ 1110 TD/TT: Convention Services Manager: Complete Blood Count Auto Di ff Reviewed date:09/01/2023 12:43:50 PM Interpretation: Performing Lab:[facility], [address] [place] [phone] Notes/Report: White Blood Count 5.6 4.8-10.8 X10*3/uL Red Blood Count 5.47 4.60-5.80 X10*6/uL Hemoglobin 15.1 14.0-18.0 g/dl Hematocrit 44.5 42.0-52.0 % Mean Corpuscular Volume 81.4 80.0-98.0 fL Mean Corpuscular Hemoglobin 27.6 27.0-33.0 pg Mean Corpuscular HGB Conc 33.9 31.0-36.0 g/dl Red Cell Distribution Width 13.7 11.0-16.0 % Platelet Count 180 160-400 X10*3/uL Mean Platelet Volume 10.2 9.4-12.4 fL Neutrophils Percent Auto 58.8 45-73 % Imm Gran Pct Auto 0.4 0.0-0.4 % Lymphocytes Percent Auto 27.0 20-40 % Monocytes Percent Auto 9.4 2-11 % Eosinophils Percent Auto 3.7 0-4 % Basophils Percent Auto 0.7 0-2 % NRBC Pct Auto 0.0 0.0-0.2 /100WBC Neutrophils Absolute Auto 3.3 2.0-8.3 x10*3/u L Imm Gran Abs Auto 0.02 0.00-0.03 X10*3/uL Lymphocytes Absolute Auto 1.5 1.2-4.9 X10*3/u L Monocytes Absolute Auto 0.5 0.1-1.2 X10*3/uL Eosinophils Absolute Auto 0.2 0.0-0.4 X10*3/u L Basophils Absolute Auto 0.0 0.0-0.2 X10*3/uL NRBC Abs Auto 0.000 0.0-0.012 X10*3/uL Comprehensive [place]. Panel Fa st Reviewed date:09/01/2023 04:29:37 PM Interpretation: Performing Lab:[facility], [address] [place] [phone] Notes/Report: Sodium 142 135-145 mmol/L Potassium 3.6 3.3-5.1 mmol/L Slight Hemoly sis Chloride 106 96-108 mmol/L Carbon Dioxide 28 22-29 mmol/L Anion Gap 12 12-20 Blood Urea Nitrogen 16 9-16 mg/dL Creatinine 0.87 0.5-1.4 mg/dL Estimated Glomerular Filt Rate > 60 NOTE: For -Indian individuals, multiply the result by 1.210. Chronic Kidney Disease: Estimated GFR < 60 mL/min/1.73m2 Severe Kidney Disease: Estimated GFR < 15 mL/min/1.73m2 Glucose Fasting 100 60-99 mg/dL A fasting glucose from 100-125 mg/dl is considered impaired (pre-diabetes). Calcium 9.2 8.4-10.2 mg/dL Bilirubin Total 0.6 0.0-1.0 mg/dL Aspartate Amino Transferase 19 5-37 U/L Slight Hemolysis Alanine Aminotransferase 14 0-40 U/L Total Protein 6.6 6.5-8.0 g/dL Albumin Level 4.0 3.5-5.0 g/dL Alkaline Phosphatase 64 39-117 U/L Lipid Panel Reviewed date:09/01/2023 12:46:51 PM Interpretation: Performing Lab:[facility], [address] [place] [phone] Notes/Report: Triglycerides 112 <150 mg/dL Desirable Triglyceride: less than 150 mg/dL Borderline High Triglyceride 150-199 mg/dL High Triglyceride: 200-499 mg/dL Very High Triglyceride: greater than or equal to 5OO mg/dL Cholesterol 197 <200 mg/dL Desirable Cholesterol: less than 200 mg/dL Borderline High Cholesterol: 200-239 mg/dL High Cholesterol: greater than 239 mg/dL LDL Cholesterol Calculated 127 <100 mg/dL Desirable LDL: less than 100 mg/dL Near Optimal/Above Optimal LDL: 110-129 mg/dL Borderline High LDL: 130-159 mg/dL High LDL: 160-189 mg/dL Very High LDL: greater than or equal to 190 mg/dL HDL Cholesterol 48 >40 mg/dL Desirable HDL: greater than 40 mg/dL Note: This HDL assay may give artificially low results in patients with liver disease. PSA,Total (Free>4and<10) Reviewed date:09/01/2023 02:53:52 PM Interpretation: Performing Lab:[facility], [address] [place] [phone] Notes/Report: PSA,Total (Free>4and<10) < 0.10 0.00-4.00 ng/mL A Free PSA was not performed: The percentage of Free PSA can be used to enhance the differentiation of prostate cancer from benign prostatic disease in subjects whose PSA levels are between 4.0 and 10.0 ng/mL. For subjects whose PSA levels are below 4.0 or above 10.0 ng/mL, the risk of prostate cancer is determined on the basis of the PSA alone. Therefore the % Free PSA is recommended only for those subjects whose PSA levels are between 4.0 and 10.0 ng/mL. PSA methodology: Jang Alinity i Chemiluminescent Microparticle Immunoassay (CMIA) Microalbumin, Random Reviewed date:09/01/2023 02:49:38 PM Interpretation: Performing Lab:[facility], [address] [place] [phone] Notes/Report: Creatinine Urine 171.09 Microalbumin Urine 9.0 Microalbum/Creatinine Ratio Ur 5.2 <30 ug/mg cr Albumin/Creatinine Ratio Reference Ranges: Normal: < 30 ug/mg creatinine Microalbuminuria: 30 - 300 ug/mg creatinine Clinical Albuminuria: > 300 ug/mg creatinine Hemoglobin A1c Reviewed date:09/01/2023 12:42:40 PM Interpretation: Performing Lab:[facility], [address] [place] [phone] Notes/Report: Hemoglobin A1c % 5.6 <6.0 % Hemoglobin A1C Reference Range Adults: 4.8 - 6.0 % Non diabetic: < 6.0 % Goal: < 7.0 % Additional Action Suggested: > 8.0 % Note: Hemoglobin A1c results are invalid for patients with abnormal amounts of HbF. Blood transfusions may impact the HbA1c concentration in the patient sample. Estimated Average Glucose 114 eAG = Estimated average glucose which is %A1C expressed as average glucose, using the formula of the Q8Q-Odpnita Average Glucose study (ADAG), Diabetes Care, Vol.31,#8, Sep. 2007 UA ClnCatch+Micro w/rflx Cul t Reviewed date:09/01/2023 02:55:36 PM Interpretation: Performing Lab:[facility], [address] [place] [phone] Notes/Report: [id number] Urine, Clean Catch Color Urine Yellow Appearance Urine Clear PH 6.0 5.0-9.0 Glucose Urine UA Negative Negative mg/dL Urine Blood Negative Negative Specific [place] - Urine 1.025 1.005-1.025 Urine Protein Negative Neg-Trace mg/dL Urine Ketones Negative Negative mg/dL Nitrite Urine Negative Negative Leukocyte Esterase Urine Negative Negative RBC Urine 0-2 0-2 /HPF WBC Urine 0-5 0-5 /HPF Squamous Epithelial Cell Urine 0-2 0-2 /HPF Calcium Oxalate Crystals Urine Present Bacteria Urine None Seen None Seen Hyaline Casts Urine 0-2 0-2 /LPF US aorta Reviewed date:10/13/2023 07:56:18 AM Interpretation:referral entered Performing Lab: Notes/Report: [facility] [address] Ultrasound Report Signed Patient: Saravanan Yarbrough MR#: [id number] : 1940 Acct:[id number] Age/Sex: 83 / M ADM Date: 10/01/23 Loc: .US Attending Dr: Boone Oconnell MD Ordering Physician: Boone Oconnell MD Date of Service: 10/01/23 Procedure(s): US aorta Accession Number(s): [id number] cc: Boone Oconnell MD EXAMINATION: US RETROPERITONEAL LIMITED (AORTA) CLINICAL INFORMATION: Aneurysm of iliac artery. COMPARISON: CT abdomen and pelvis 10/16/2022. TECHNIQUE: Gagnon-scale, color Doppler and spectral Doppler evaluation of the abdominal aorta. FINDINGS: Limited visualization due to bowel gas. The measurements of the aorta in maximum AP and transverse dimensions respectively are as follows: Proximal: 2.9 x 2.2 cm. Mid: 2.2 x 2.2 cm. Distal: 1.8 x 1.9 cm. PSV: 138 cm/s. The measurements of the common iliac arteries in maximum AP and TRV dimensions are as follows: Right Common Iliac Artery: 1.6 x 1.3 cm. Left Common Iliac Artery: 1.4 x 1.6 cm. Aneurysmal dilatation of the right common iliac artery which measures 2.8 cm in AP diameter proximally and 1.6 cm distally; however, visualization is severely limited due to bowel gas and body habitus. US/US aorta IMPRESSION: Aneurysmal dilatation of the right common iliac artery which measures 2.8 cm in AP diameter proximally and 1.6 cm distally; however, visualization is severely limited due to bowel gas and body habitus. CT scan recommended for further evaluation. Dictated By: Nelida Chairez MD Signed By: <Electronically signed by Nelida Chairez MD in OV> 10/12/23 1446 DD/ 0820 TD/TT: Convention Services Manager: REASON FOR REFERRAL Reason aneurysm of ilac art ino Diagnosis 1 Aneurysm of iliac ar jaz (I72.3) Referral Organization Boone Oconnell MD Referring Provider First Name Boone Referring Provider Last Name Anish Referring Provider Speciality Internal M edicine Referred Provider FLAKITO TORRES Referred Provider Specialty Vascular Steven jose General Notes Jen Luke 07:55:14 AM EDT > info faxed , Jen Luke 10/19/2023 02:31:24 PM EDT > was told referral is still being worked on, Was told Dr. Torres was out of the office for a week , Jen Luke 10/26/2023 01:22:03 PM EDT > appt info mailed to patient Referral Priority Routine Referral Appointment Date 01/05/2024 MEDICATIONS Medication SIG (Take, Route, Frequency, Duration) Notes Start Date End Date Status Valtrex 1 GM 1 tablet Orally twic e a day for 5 days 05/17/2020 Not-Taking Meloxicam 15 MG 1 tablet Orally Once a day for 30 day(s) 09/08/2022 Not-Taking Lisinopril-hydroCHLOROthi azide 20-12.5 MG TAKE 1 TABLET BY MOUTH EVERY DAY FOR 90 DAYS Orally Once a day for 90 days Active amLODIPine Besylate 5 MG TAKE 1 TABLET B Y MOUTH EVERY DAY FOR 90 DAYS Orally Once a day for 90 days Active ProAir RespiClick 108 (90 Base) MCG/ACT 2 puff as needed Inhalation every 4 hrs for 30 days 08/15/2016 Not-Taking Omeprazole 20 MG take one capsule ethan ry day Orally Once a day for 90 days Not-Taking CeleBREX 200 MG 1 capsule Orally Onc e a day for 30 Not-Taking Pravastatin Sodium 40 MG TAKE 1 TABLET B Y MOUTH EVERY DAY Orally Once a day for 90 days Active Metoprolol Succinate ER 25 MG TAKE 1 TABLET BY MOUTH EVERY DAY FOR 90 DAYS Orally Once a day for 90 days Active Fish Oil 1000 MG 1 capsule Orally Onc e a day Active Nitrostat 0.4 MG 1 tablet under the tongue Sublingual every 8 hrs for 30 day(s) 03/04/2011 Not-Taking IMMUNIZATIONS Vaccine Route Administration Date Status Comme nts Flu Vaccine IM Intramuscular 10/21/2010 Administered PPSV23 (Pnemovax) IM Intramuscular 09/27/2012 Administered DECLINED, FLU Unknown 02/08/2013 Administered Prevnar 13 IM Intramuscular 08/18/2013 Administered Tetanus Unknown 07/02/2017 Administered given at [facility] ER PPSV23 (Pnemovax) IM Intramuscular 05/03/2018 Administered SARS-COV-2 Pfizer Unknown 04/14/2020 Administered SARS-COV-2 Pfizer Unknown 05/05/2020 Administered Shingrix Unknown 10/30/2020 Administered Shingrix Unknown 01/17/2021 Administered [facility] SARS-COV-2 Pfizer Unknown 01/22/2021 Administered [facility] SARS-COV-2 Pfizer Unknown 01/22/2021 Administered DECLINED, FLU Unknown 01/31/2014 Refused Flu Vaccine Unknown 05/07/2015 Refused Flu Vaccine Unknown 11/12/2015 Refused Fluarix Quadrivalent Unknown 11/17/2016 Refused Fluarix Quadrivalent Unknown 11/30/2017 Refused Fluarix Quadrivalent Unknown 12/14/2018 Refused Fluarix Quadrivalent Unknown 03/20/2020 Refused Influenza High Dose Unknown 11/12/2020 Refused Influenza High Dose Unknown 11/27/2020 Refused Influenza High Dose Unknown 03/04/2022 Refused SOCIAL HISTORY Tobacco Use: Social History Observation Description Date Details (start date - stop date) Former Smoker NA - NA Sex Assigned At : Social History Observation Description Sex Assigned At Unknown Tobacco Use/Smoking Question Answer Notes Patient is a former smoker How long has it been since y ou last smoked? > 10 years Additional Findings: Tobacco Non-User Fo rmer smoker, currently using no form of tobacco Alcohol Screen Question Answer Notes Did you have a drink contain ing alcohol in the past year? Yes How often did you have a dri nk containing alcohol in the past year? Monthly or less (1 point) How many drinks did you have on a typical day when you were drinking in the past year? 1 or 2 drinks (0 point) How often did you have 6 or more drinks on one occasion in the past year? 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.6) Active confirmed 756932069 Problem Heart murmur (R01.1) Active confirmed 8 2597998 Problem History of prostate cancer (Z85.46) Active confirmed 849946472 Problem Carpal tunnel syndrome of right wrist (G56.01) Active confirmed 344163890335578 Problem Carpal tunnel syndrome of left wrist (G56.02) Active confirmed 94087282 Problem Sciatica of left guy e (M54.32) Active confirmed 58048362 Problem Pure hypercholesterolemia (E78.00) Active confirmed 769390581 Problem Hypercholesterolemia (E78.00) Active confirmed Hypercholestero lemia (00701622) Problem Asthmatic bronchitis without complication (J45.909) Active confirmed 308672113 Problem Equivocal stress osmar t (R94.39) Active confirmed 338981713 Problem Gastritis and duodenitis (K29.90) Active confirmed 616817777 Problem Continuous leakage o f urine (N39.45) Active confirmed 443957716 Problem History of angina (Z86.79) Active confirmed 147798308 Problem Acute arthritis (M19.90) Active confirmed Acute arthritis (97752482) VITAL SIGNS Blood pressure diastolic 60 mm Hg 11/03/2023 sheila ght is up 3 pounds since 10-20-23 Height 68 in 11/03/2023 weight is up 3 pounds since 10-20-23 Blood pressure systolic 142 mm Hg 11/03/2023 weig ht is up 3 pounds since 10-20-23 Weight 207 lbs 11/03/2023 weight is up 3 pounds since 10-20-23 BMI 31.47 kg/m2 11/03/2023 weight is up 3 pounds since 10-20-23 Encounters Encounter Location Date Provider Diagnosis Boone Oconnell MD [address] [place] [id number] 09/10/2023 Boone Oconnell History of prostate cancer Z85.46 ; Pure hypercholesterolemia E78.00 and Essential hypertension I10 Boone Oconnell MD [address] [place] [id number] 03/06/2023 Boone Oconnell Type 2 diabetes kyle itus with diabetic neuropathy E11.40 and Pure hypercholesterolemia E78.00 Boone Oconnell MD [address] [place] [address] [id number] 09/01/2023 Boone Oconnell Type 2 diabetes kyle itus with diabetic neuropathy E11.40 ; Essential hypertension I10 ; Pure hypercholesterolemia E78.00 and Hypercholesterolemia E78.00 Boone Oconnell MD [address] [place], [place] [id number] 03/13/2023 Boone Oconnell Essential hypertensi on I10 ; Pure hypercholesterolemia E78.00 and Type 2 diabetes mellitus with diabetic neuropathy E11.40 Boone Oconnell MD [address] [place] [address] [id number] 11/03/2023 Boone Oconnell Muscle strain T14.8X XA Boone Oconnell MD [address] [place] [address] [id number] 04/16/2023 Boone Oconnell MD [address] [place] [address] [id number] 06/16/2023 Boone Oconnell Pure hypercholestero lemia E78.00 Boone Oconnell MD [address] [place] [address] [id number] 07/02/2023 Boone Oconnell Acute arthritis M19. 90 Boone Oconnell MD [address] [place] [address] [id number] 08/11/2023 Boone Oconnell Cough R05.9 Boone Oconnell MD [address] [place] [address] [id number] 09/17/2023 Boone Oconnell MD [address] [place] [address] [id number] 10/12/2023 Boone Oconnell MD [address] [place] [address] [id number] 10/13/2023 Boone Oconnell MD [address] [place] [address] [id number] 10/15/2023 Boone Oconnell MD [address] [place] [address] [id number] 10/16/2023 Boone Oconnell MD [address] [place] [address] [id number] 08/06/2023 Boone Oconnell Bronchitis J40 Boone Oconnell MD [address] [place] [address] [id number] 10/15/2023 Boone Oconnell MD [address] [place] [address] [id number] 10/20/2023 Boone Bombardier Atypical chest pain R07.89 ASSESSMENTS Encounter Date Diagnosis Assessment Notes Treatment Notes Treatment Clinical Notes 09/10/2023 History of prostate cancer (ICD-10 - Z85.46) no sign of any return/ r 09/10/2023 Pure hypercholestero lemia (ICD-10 - E78.00) not quite at goal but won't take 03/06/2023 Type 2 diabetes kyle itus with diabetic neuropathy (ICD-10 - E11.40) 03/06/2023 Pure hypercholestero lemia (ICD-10 - E78.00) 09/01/2023 Essential hypertensi on (ICD-10 - I10) 09/01/2023 Type 2 diabetes kyle itus with diabetic neuropathy (ICD-10 - E11.40) 03/13/2023 Essential hypertensi on (ICD-10 - I10) well controlled 03/13/2023 Pure hypercholestero lemia (ICD-10 - E78.00) not at goal but the only statin that he can take is pravastatin and will just use that 11/03/2023 Muscle strain (ICD-1 0 - T14.8XXA) observe. the pain is not actually bothering him much but was just worried that he had a hernia. the area of concern is not int the area of hernias. 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 he was mostly concerned about hernias 06/16/2023 Pure hypercholestero lemia (ICD-10 - E78.00) 07/02/2023 Acute arthritis (ICD -10 - M19.90) 08/06/2023 Bronchitis (ICD-10 - J40) michelle bellamy verbalized understandig of new medication and directions for use 10/20/2023 Atypical chest pain (ICD-10 - R07.89) no treatment needed. reviewed the er visit from [facility] and the work up was negative and had a ct angio which showed no aneurysm in the iliac artery 09/10/2023 Essential hypertensi on (ICD-10 - I10) doing well 09/01/2023 Pure hypercholestero lemia (ICD-10 - E78.00) 03/13/2023 Type 2 diabetes kyle itus with diabetic neuropathy (ICD-10 - E11.40) is doing well with a good a1c 08/11/2023 Cough (ICD-10 - R05.9) Order faxed to Patient Reg at [facility] [phone] 09/01/2023 Hypercholesterolemia (ICD-10 - E78.00) PLAN OF TREATMENT Pending Test Test Name Order Date Electrocardiogram (EKG) 05/14/2015 Electrocardiogram (EKG) 06/10/2018 XR CHEST 2 VIEW PA & LAT 10/04/2019 XR CHEST 2 VIEW PA & LAT 05/17/2021 XR CHEST 2 VIEW PA & LAT 08/28/2016 COLOGUARD 08/21/2020 CT abdomen pelvis wo/w con 10/06/2022 US aorta 10/30/2022 Future Test Test Name Order Date CT ABD W&WO CONTRAST 05/21/2017 Next Appt Details Provider Name:Boone anne, 03/11/2024 08:00:00 AM, [address] [place] [address], [address], [phone], Provider Name:Boone wigginsr, 03/17/2024 09:00:00 AM, [address] [place] [address], [address] [place] [address], [phone], Provider Name:Boone wigginsr, 09/05/2024 07:15:00 AM, [address] [place] [address], [address] [place] [address], [phone], Provider Name:Boone wigginsr, 09/09/2024 09:30:00 AM, [address] [place] [address], [address], [phone], Insurance Providers Payer Name Payer Address Payer Phone Subscriber Number Group Number Insured Name Patient Relationship to Insured Coverage Start Date Coverage End Date MEDICARE [address] [place] [address] [id number] Saravanan Yarbrough Self - patient is the insured [employer] [id number] [place] [phone] [id number] Saravanan Yarbrough Self - patient is the insured MEDICAL (GENERAL) HISTORY Medical History History ICD Code prostate cancer hypercholesterolemia hematuria colonoscopy 05/2009 due in 10 years. colo noscopy 2016 2011 had an equivical stress test. proba maritza negative ct angio [facility] 2023 negative for any aneu ysm
[2024-02-12 12:55] VITALS: BP 142/60; PULSE 58; BMI 31.0
--- NOTE | 2024-02-12 12:55 | A.OFFVIS_ITS ---
Vital Signs 02/12/24 12:55 Height 5 ft 8 in Weight 204 lb 2.369 oz BMI 31.0 BP 142/60 H Blood Pressure Location Rt brachial Position Sitting Pulse 58 Pulse Source Monitor Intake Visit Reasons: Chest pain Supply Chain Associate Required: No Frame Tender: Frame Tender Present Allergies No Known Allergies [No Known Allergies*] Allergy (Verified 02/12/24 12:59) Medication List - Last Reconciled 02/12/24 by Maddie Nathan NP-C amlodipine 2.5 mg PO DAILY aspirin (Ecotrin Low Strength) 81 mg PO DAILY lisinopril-hydrochlorothiazide 20-12.5 mg 1 tab PO DAILY metoprolol succinate ER 25 mg PO DAILY omega-3 fatty acids (Fish Oil Concentrate) 1,000 mg PO DAILY pravastatin 40 mg PO DAILY HPI HPI Chest pain: Details: Saravanan is an 83-year-old male with past medical history of hypertension, hyperlipidemia, hypertensive heart disease, PVCs, moderate aortic stenosis who presents with report of chest discomfort episode last week after shoveling. Today he states that he was shoveling some heavy snow last week and felt good during the activity. When he was done he noticed a discomfort in the left chest region. The symptom persisted on and off for the next few days. He also had some mild lightheadedness which was occurring randomly. Today he feels generally well. He says he is a little bit off but can not quite put his finger on it. Currently no chest discomfort. No shortness of breath, PND, orthopnea or edema. No presyncope, syncope, falls. He has been doing normal ADLs. Taking meds as directed. His is present. [facility] Medical History PVCs (premature ventricular contractions) Aortic stenosis Hypertensive heart disease ACS (acute coronary syndrome) High cholesterol HTN (hypertension) Surgical History History of appendectomy Family History Father No problems noted. Mother No problems noted. Social History Household Members: Spouse Housing: House Do you presently have visiting nurse or other home services: No Alcohol intake: never Patient Tobacco Use Status: Former Tobacco user service: No Current occupational status: retired Review of Systems Const All systems reviewed & are unremarkable except as noted in HPI and below ENT Denies dizziness Card Reports chest pain, Denies chest pain at rest, Denies chest pain with activity, Denies rapid heart rate, Denies pedal edema, Denies edema, Denies leg edema, Reports lightheadedness, Denies palpitations, Denies dyspnea, Denies dyspnea on exertion and Denies orthopnea Resp Denies cough, Denies dyspnea and Denies dyspnea on exertion GI Denies hematochezia and Denies change in stool character Musc Denies abnormal gait, Denies limited range of motion, Denies muscle cramps, Denies muscle weakness, Denies numbness, Denies radiating pain into limb, Denies stiffness and Denies tingling Neuro Denies abnormal gait, Denies dizziness, Denies numbness and Denies tingling Endo Denies palpitations Physical Exam Vital Signs: Last Vital Signs Pulse 58 02/12/24 12:55 BP 142/60 H 02/12/24 12:55 BMI result Body Mass Index 31.0 Const General: cooperative, healthy appearing, comfortable and no acute distress Orientation/consciousness: patient oriented x3 HEENT Head: Yes normal to inspection Resp Effort & Inspection: normal respiratory effort Auscultation: clear to auscultation bilaterally, no rales, no rhonchi and no wh eezes Cardio Jugular venous distension: no JVD Rate: regular rate Rhythm: regular rhythm Heart sounds: S2 normal heart sound present, no gallops, Murmur heart sound present and no rubs Neuro General: patient oriented x3 Extrem General: Yes normal to inspection, No no pedal edema and No calf tenderness Psych Appearance: grossly normal Mental Status: mental status grossly normal Speech and movement: Normal speech and movement present Office Procedures EKG Details: Today, read by me, sinus bradycardia with first-degree AV block, right axis, anterior infarct, ST and T-wave abnormality laterally, repolarization abnormality unchanged from prior EKG rate 58, QTC 424 millisecond 85359-Gqxpgkzuvrlapdjsv, Complete Assessment & Plan Assessment & Plan (1) Chest discomfort: Code(s): R07.89 - Other chest pain Category: Medical Plan: Report of left chest discomfort that started after shoveling snow last week. It persisted intermittently over the next few days and has since fully resolved. Anne preciado does not recall any tenderness to the left chest region. He had some lightheadedness over the last few days that did not correlate with the chest discomfort. Today he is feeling well. EKG today shows sinus bradycardia, first-degree AV block, anterior Q-waves, ST and T-wave abnormalities which are unchanged from prior EKG, rate 58. A nuclear stress test had been done on him 12/26/2020 which showed normal myocardial perfusion imaging. His last echo was 12/28/2023 showing EF 58%, moderate aortic stenosis, no regional wall motion abnormalities. Will check an exercise nuclear stress test to evaluate for any ischemia. He believes he will be able to exercise on the treadmill. His is known to be moderate an exercise stress is appropriate. Signs and symptoms of angina reviewed with him. Emergency care if needed for recurrent symptoms. Continue aspirin, pravastatin, metoprolol. Will plan to call him with stress test results. Cardiology follow-up as planned 12/2024, sooner if needed (2) Aortic stenosis: Code(s): I35.0 - Nonrheumatic aortic (valve) stenosis Category: Medical Plan: History of aortic stenosis. Most recent echocardiogram 12/28/2023 shows moderate , mean gradient 22 mmHg, aortic valve area 1.1 centimeter sq. Repeat echo is planned for 1 year from last. He did have chest discomfort as described above. It sounds more likely to be chest wall discomfort however nuclear stress test is being done. He reports some vague lightheadedness of unclear significance. No shortness of breath or signs of heart failure on exam. Spent time reviewing the cardinal signs of severe with him. (3) HTN (hypertension): Code(s): I10 - Essential (primary) hypertension Category: Medical Plan: Mild elevation when initially checked today. He tells me that he had walk from the parking lot. Recent blood pressure readings have been well controlled. At this time no med changes made. Continue amlodipine, lisinopril/hydrochlorothiazide, metoprolol. Plan Time spent on chart review, documentation, interview and assessment Coding Level of Care Code Est Pt Level 4 (01871) Complex EM visit Add On G2211 Diagnoses Chest discomfort R07.89 Aortic stenosis I35.0 HTN (hypertension) I10 CPT Codes EKG - CPT: 16259-Ezsompmpxxnadlplm, Complete ([id number]) Time Spent (min) 30
== END 2024-02-12 13:27 | disposition home or self-care (01) ==
PROVIDERS: PCP Internal Medicine; Visit Provider Nurse Practitioner Family
DX: R07.89 Other chest pain (principal); I35.0 Nonrheumatic aortic (valve) stenosis; I10 Essential (primary) hypertension
CPT/HCPCS: 93010; 99214; G2211

== ENCOUNTER → 2024-02-12 12:40 | Outpatient (BNVA) | payer MEDICARE, SELFPAY | PROVIDERS: PCP Internal Medicine; Visit Provider Nurse Practitioner Family | DX: R07.89 Other chest pain (principal); I35.0 Nonrheumatic aortic (valve) stenosis; I10 Essential (primary) hypertension | CPT/HCPCS: 93005; 99212 ==

== ENCOUNTER 2024-03-11 11:42 | Outpatient (REF) | payer MEDICARE, SELFPAY ==
--- OUTSIDE RECORDS SUMMARY | 2024-03-11 12:01 | XMS_ITS ---
Author Organization Boone Oconnell MD Address [address] [place], [place] [id number] Care Team Providers Care Lpn Rn Name Role Phone Boone Oconnell Primary Care Provider [phone] ALLERGIES Allergen (clinical drug ingredient) Drug/Non Drug [...] Location Date Provider Diagnosis Boone Oconnell MD [address] [place] [address] Drive [address] [place], [place] [phone] 11/03/2023 Boone Oconnell Muscle strain T14.8XXA ASSESSMENTS [...] Next Appt Details Provider Name:Boone Barber ier, 03/17/2024 09:00:00 AM, [address], [address], [place], [phone], Provider Name:Boone Shannon Elisabeth anne, 09/05/2024 07:15:00 AM, [address] [place] [address], [address], [place], [phone], Provider Name:Boone anne, 09/09/2024 09:30:00 AM, [address] [place] [address], [address], [place], [phone], Progress Notes * Examination Category Sub-Category Detail Notes General Examination GENERAL APPEARANCE: alert, w ell hydrated, in no distress MUSCULOSKELETAL: the area is not the area of hernias. is in inner upper thigh. no hernias in that area
--- OUTSIDE RECORDS SUMMARY | 2024-03-11 12:01 | XMS_ITS ---
Author Organization Boone Oconnell MD Address [address] [place] [phone] Care Team Providers Care Plush Cutter Name Role Phone Boone Oconnell Primary Care Provider REASON FOR VISIT FASTING LIPIDS Encounters Encounter Location Date Provider Diagnosis Boone Oconnell MD [address] [place] [id number] 03/11/2024 Boone Oconnell Type 2 diabetes kyle itus with diabetic neuropathy E11.40 and Pure hypercholesterolemia E78.00 ASSESSMENTS Encounter Date Diagnosis Assessment Notes Treatment Notes Treatment Clinical Notes 03/11/2024 Type 2 diabetes kyle itus with diabetic neuropathy (ICD-10 - E11.40) 03/11/2024 Pure hypercholestero lemia (ICD-10 - E78.00) PLAN OF TREATMENT Pending Test Test Name Order Date Liver Panel 03/11/2024 Glucose Fasting 03/11/2024 Lipid Panel with Reflex 03/11/2024 Hemoglobin A1c 03/11/2024 Next Appt Details Provider Name:Boone Shannon Elisabeth anne, 03/17/2024 09:00:00 AM, [address] [facility], [address], [place], [phone], Provider Name:Boone Mirtha Elisabeth anne, 09/05/2024 07:15:00 AM, [address] [place] [address], [address], [place], [phone], Provider Name:Boone anne, 09/09/2024 09:30:00 AM, [address] [facility], [address], [place], [phone],
--- OUTSIDE RECORDS SUMMARY | 2024-03-11 12:02 | XMS_ITS | Patient Health Record ---
Author Organization Boone Oconnell MD Address [address] [place], [place] [phone] Care Team Providers Care Student Ministry Pastor Name Role Phone AnishZaydan Primary Care Provider ALLERGIES Allergen (clinical drug ingredient) Drug/Non Drug Allergy documented on EMR Reaction Allergy Type Onset Date Status simvastatin Simvastatin myalgia Drug Allergy Act yakov atorvastatin Lipitor myalgia Drug Allergy Acti ve RESULTS Component Value Reference Range Notes XR chest 2V Reviewed date:08/24/2023 05:24:58 PM Interpretation: Performing Lab: Notes/Report: [address] [address] XRay Report Signed Patient: Saravanan Yarbrough MR#: [id number] : 1940 Acct:[id number] Age/Sex: 82 / M ADM Date: 08/11/23 Loc: [facility] Attending Dr: Boone Oconnell MD Ordering Physician: Boone Oconnell MD Date of Service: 08/11/23 Procedure(s): XR chest 2V Accession Number(s): [id number] cc: Boone Oconnell MD EXAMINATION: XR CHEST [...] in OV> 08/24/23 1100 DD/ 1110 TD/TT: Paint Process Engineer: Complete Blood Count Auto Di ff Reviewed date:09/01/2023 12:43:50 PM Interpretation: Performing Lab:[facility], [address] [place] [phone] Notes/Report: White Blood Count 5.6 4.8-10.8 X10*3/uL [...] NRBC Abs Auto 0.000 0.0-0.012 X10*3/uL Comprehensive [place]. Panel Fa Reviewed date:09/01/2023 04:29:37 PM Interpretation: Performing Lab:[facility], [address] [place] [phone] Notes/Report: Sodium 142 135-145 mmol/L Potassium 3.6 3.3-5.1 mmol/L Slight Hemoly sis Chloride 106 96-108 mmol/L Carbon Dioxide 28 22-29 mmol/L Anion Gap 12 12-20 Blood Urea Nitrogen 16 9-16 mg/dL Creatinine 0.87 0.5-1.4 mg/dL Estimated Glomerular Filt Rate > 60 NOTE: For -[place]amo[place] individuals, multiply the result by 1.210. Chronic [...] Panel Reviewed date:09/01/2023 12:46:51 PM Interpretation: Performing Lab:[facility], [address] [place] [phone] Notes/Report: Triglycerides 112 <150 mg/dL Desirable Triglyceride: [...] (Free>4and<10) Reviewed date:09/01/2023 02:53:52 PM Interpretation: Performing Lab:[address] [phone] Notes/Report: PSA,Total (Free>4and<10) < 0.10 0.00-4.00 ng/mL [...] Random Reviewed date:09/01/2023 02:49:38 PM Interpretation: Performing Lab:[facility], [address] [place] [phone] Notes/Report: Creatinine Urine 171.09 Microalbumin Urine 9.0 Microalbum/Creatinine Ratio Ur 5.2 <30 ug/mg cr Albumin/Creatinine Ratio Reference Ranges: Normal: < 30 ug/mg creatinine Microalbuminuria: 30 - 300 ug/mg creatinine Clinical Albuminuria: > 300 ug/mg creatinine Hemoglobin A1c Reviewed date:09/01/2023 12:42:40 PM Interpretation: Performing Lab:[facility], [address] [place] [phone] Notes/Report: Hemoglobin A1c % 5.6 <6.0 % [...] average glucose, using the formula of the D7A-Xnwlfik Average Glucose study (ADAG), Diabetes Care, Vol.31,#8, Sep. 2007 UA ClnCatch+Micro w/rflx Cul t Reviewed date:09/01/2023 02:55:36 PM Interpretation: Performing Lab:[facility], [address] [place] [phone] Notes/Report: [id number] Urine, Clean Catch Color Urine Yellow Appearance Urine Clear PH 6.0 5.0-9.0 Glucose Urine UA Negative Negative mg/dL Urine Blood Negative Negative Specific [place] - Urine 1.025 1.005-1.025 Urine Protein Negative [...] 07:56:18 AM Interpretation:referral entered Performing Lab: Notes/Report: [address] [address] Ultrasound Report Signed Patient: Saravanan Yarbrough MR#: [id number] : 1940 Acct:[id number] Age/Sex: 83 / M ADM Date: 10/01/23 Loc: HO.US Attending Dr: Boone Oconnell MD Ordering Physician: Booen Oconnell MD Date of Service: 10/01/23 Procedure(s): US aorta Accession Number(s): [id number] cc: Boone Oconnell MD EXAMINATION: US RETROPERITONEAL [...] in OV> 10/12/23 1446 DD/ 0820 TD/TT: Paint Process Engineer: Neymar Moreno (Not yet reviewed by provider) Interpretation: Performing Lab:[facility], [address] [place] [phone] Notes/Report: Neymar Moreno See Note Specimen held untested for 24 hours; Call to request Chemistry testing. 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) Active confirmed 38526392 Problem Low HDL (under 40) (E78.6) Active confirmed 489102105 Problem Heart murmur (R01.1) Active confirmed 8 4144195 Problem History of prostate cancer (Z85.46) Active confirmed 323711281 Problem Carpal tunnel syndrome of right wrist (G56.01) Active confirmed 270058246356872 Problem Carpal tunnel syndrome of left wrist (G56.02) Active confirmed 16345044 Problem Sciatica of left guy e (M54.32) Active confirmed 14291606 Problem Pure hypercholesterolemia (E78.00) Active confirmed 521754695 Problem Hypercholesterolemia (E78.00) Active confirmed Hypercholestero lemia (34043238) Problem Asthmatic bronchitis without complication (J45.909) Active confirmed 751705131 Problem Equivocal stress osmar t (R94.39) Active confirmed 675934560 Problem Gastritis and duodenitis (K29.90) Active confirmed 247436439 Problem Continuous leakage o f urine (N39.45) Active confirmed 564507648 Problem History of angina (Z86.79) Active confirmed 776673828 Problem Acute arthritis (M19.90) Active confirmed Acute arthritis (28834414) VITAL SIGNS Blood pressure diastolic 60 mm [...] Boone Oconnell MD [address] [place] [id number] 09/10/2023 Boone Oconnell History of prostate cancer Z85.46 ; Pure hypercholesterolemia E78.00 and Essential hypertension I10 Boone Oconnell MD [address] [place] [id number] 09/01/2023 Boone Oconnell Type 2 diabetes kyle itus with diabetic neuropathy E11.40 ; Essential hypertension I10 ; Pure hypercholesterolemia E78.00 and Hypercholesterolemia E78.00 Boone Oconnell MD [address] [place] [id number] 03/11/2024 Boone Oconnell Type 2 diabetes kyle itus with diabetic neuropathy E11.40 and Pure hypercholesterolemia E78.00 Boone Oconnell MD [address] [place] [id number] 03/13/2023 Boone Oconnell Essential hypertensi on I10 ; Pure hypercholesterolemia E78.00 and Type 2 diabetes mellitus with diabetic neuropathy E11.40 Boone Oconnell MD [address] [place] [id number] 11/03/2023 Boone Oconnell Muscle strain T14.8X XA Boone Oconnell MD [address] [place] [id number] 04/16/2023 Boone Oconnell MD [address] [place] [id number] 06/16/2023 Boone Oconnell Pure hypercholestero lemia E78.00 Boone Oconnell MD [address] [place] [id number] 07/02/2023 Boone Oconnell Acute arthritis M19. 90 Boone Oconnell MD [address] [place] [id number] 08/11/2023 Boone Oconnell Cough R05.9 Boone Oconnell MD [address] [place] [id number] 09/17/2023 Boone Oconnell MD [address] [place] [id number] 10/12/2023 Boone Oconnell MD [address] [place] [address] [id number] 10/13/2023 Boone Oconnell MD [address] [place] [id number] 10/15/2023 Boone Oconnell MD [address] [place] [id number] 10/16/2023 Boone Oconnell MD [address] [place] [address] [id number] 08/06/2023 Boone Oconnell Bronchitis J40 Boone Oconnell MD [address] [place] [id number] 10/15/2023 Boone Oconnell MD [address] [place] [id number] 10/20/2023 Boone Oconnell Atypical chest pain R07.89 ASSESSMENTS Encounter Date Diagnosis Assessment Notes Treatment Notes Treatment Clinical Notes 09/10/2023 History of prostate cancer (ICD-10 - Z85.46) no sign of any return/ r 09/10/2023 Pure hypercholestero lemia (ICD-10 - E78.00) not quite at goal but won't take 09/01/2023 Essential hypertensi on (ICD-10 - I10) 09/01/2023 Type 2 diabetes kyle itus with diabetic neuropathy (ICD-10 - E11.40) 03/11/2024 Type 2 diabetes kyle itus with [...] treatment needed. reviewed the er visit from [facility] and the work up was negative and had a ct angio which showed no aneurysm in the iliac artery 09/10/2023 Essential hypertensi on (ICD-10 - I10) doing well 09/01/2023 Pure hypercholestero lemia (ICD-10 - E78.00) 03/11/2024 Pure hypercholestero lemia (ICD-10 - E78.00) 03/13/2023 Type 2 diabetes kyle itus with diabetic neuropathy (ICD-10 - E11.40) is doing well with a good a1c 08/11/2023 Cough (ICD-10 - R05.9) Order faxed to Patient Reg at [facility] [phone] 09/01/2023 Hypercholesterolemia (ICD-10 - E78.00) PLAN OF TREATMENT Pending Test Test Name Order Date Electrocardiogram (EKG) 06/10/2018 Electrocardiogram (EKG) 05/14/2015 XR CHEST 2 VIEW PA & LAT 10/04/2019 XR CHEST 2 VIEW PA & LAT 05/17/2021 XR CHEST 2 VIEW PA & LAT 08/28/2016 COLOGUARD 08/21/2020 Liver Panel 03/11/2024 Glucose Fasting 03/11/2024 Lipid Panel with Reflex 03/11/2024 Hold Gold 03/11/2024 CT abdomen pelvis wo/w con 10/06/2022 US aorta 10/30/2022 Hemoglobin A1c 03/11/2024 Future Test Test Name Order Date CT ABD W&WO CONTRAST 05/21/2017 Next Appt Details Provider Name:Boone Barber ier, 03/17/2024 09:00:00 AM, [address] [place] [address], [address] [place] [address], [phone], Provider Name:Boone Barber ier, 09/05/2024 07:15:00 AM, [address] [place] [address], Suite [facility], [place], [place], [phone], Provider Name:Boone Barber ier, 09/09/2024 09:30:00 AM, [address] [place] [address], Suite [facility], [place], [place], [phone], Insurance Providers Payer Name Payer Address Payer Phone Subscriber Number Group Number Insured Name Patient Relationship to Insured Coverage Start Date Coverage End Date MEDICARE [address] [place] [address] [id number] Saravanan Yarbrough Self - patient is the insured [employer] [place] [address] [place] [address] [id number] Saravanan Yarbrough Self - patient is the insured MEDICAL (GENERAL) HISTORY Medical History History ICD Code prostate cancer hypercholesterolemia hematuria colonoscopy 05/2009 due in 10 years. colo noscopy 2016 2011 had an equivical stress test. proba maritza negative ct angio [facility] 2023 negative for any aneu ysm
--- OUTSIDE RECORDS SUMMARY | 2024-03-11 12:02 | XMS_ITS ---
Author Organization Boone Oconnell MD Address [address] [place], [place] [phone] Care Team Providers Care Knitting Tester Name Role Phone Boone Oconnell Primary Care Provider [phone] ALLERGIES Allergen (clinical drug ingredient) Drug/Non Drug Allergy documented on EMR Reaction Allergy Type Onset Date Status simvastatin Simvastatin myalgia Drug Allergy Act yakov atorvastatin Lipitor myalgia Drug Allergy Acti ve REASON FOR VISIT post ERVisit chest pain, Audio [phone] MEDICATIONS Medication SIG (Take, Route, Frequency, Duration) [...] Location Date Provider Diagnosis Boone Oconnell MD [address] [place] [address] [place] [phone] 10/20/2023 Boone Oconnell Atypical chest pain R07.89 ASSESSMENTS Encounter Date Diagnosis Assessment Notes Treatment Notes Treatment Clinical Notes 10/20/2023 Atypical chest pain (ICD-10 - R07.89) no treatment needed. reviewed the er visit from [facility] and the work up was negative and had a ct angio which showed no aneurysm in the iliac artery PLAN OF TREATMENT Treatment Notes Assessment Notes Atypical chest pain no treatment needed. reviewed the er visit from [facility] and the work up was negative and had a ct angio which showed no aneurysm in the iliac artery Next Appt Details Provider Name:Boone anne, 03/17/2024 09:00:00 AM, [address] [place] [address], [address], [place], [place], [phone], Provider Name:Boone anne, 09/05/2024 07:15:00 AM, [address] [place] [address], [address], [place], [place], [phone], Provider Name:Boone anne, 09/09/2024 09:30:00 AM, [address] [facility], [address], [place], [place], [phone], History and Physical Notes * HPI (History of Present Illness) Category Sub-Category Detail Notes Symptom(s) Telehealth Location of prov ider rendering services:: [address] [place] [address], [address] Location of patient:: other (please spec niels) at work in [place] Patient identification confi rmed using:: Name, , SSN, Insurance information Telehealth method:: Telephon e only. Patient not visible to care provider. Consent:: Patient verbally c onsented to treatment, Patient verbally consented to billing insurance company, Patient informed of any privacy concerns related to method of visit Total time spend talking with patient (m inutes): 10
[2024-03-11 12:31] LABS: Estimated Average Glucose 114 mg/dL; Hemoglobin A1C 147.1302 umol/L; Hemoglobin A1c % 5.6 % (<6.0); Total Hemoglobin (HGBA1C) 3880.9254 umol/L
[2024-03-11 12:58] LABS: Alanine Aminotransferase 19 U/L (0-40); Alkaline Phosphatase 55 U/L (39-117); Aspartate Amino Transferase 25 U/L (5-37); Bilirubin Direct 0.2 mg/dL (0.0-0.5); Cholesterol 205 mg/dL (<200); Glucose Fasting 103 mg/dL (60-99); HDL Cholesterol 45 mg/dL (>40); LDL Cholesterol Calculated 135 mg/dL (<100); Total Protein 6.3 g/dL (6.5-8.0); Triglycerides 128 mg/dL (<150)
[2024-03-11 13:56] LABS: Reflex LDLD? No
== END 2024-03-11 11:43 | disposition home or self-care (01) ==
LOC: HO.LNP 11:42
PROVIDERS: Visit Provider Internal Medicine
DX: E11.40 Type 2 diabetes mellitus with diabetic neuropathy, unspecified (principal); E78.00 Pure hypercholesterolemia, unspecified
CPT/HCPCS: 80061; 80076; 82947; 83036

== ENCOUNTER 2024-04-25 12:26 | Outpatient (REF) | payer MEDICARE, SELFPAY ==
--- NOTE | ~2024-04-25 | XR_ITS ---
EXAMINATION: XR CHEST CLINICAL INFORMATION: COUGH COMPARISON: 08/11/2023. 05/17/2021. TECHNIQUE: 2 views of the chest were obtained. FINDINGS: Cardiac silhouette is borderline enlarged. Hilar and mediastinal contours are normal. Aorta is calcified. Lungs are diffusely hyperaerated with flattening of the hemidiaphragms. Subtle increased airspace opacity in the right mid and lower lung. Pneumonia is suspected, most likely in the middle lobe. There is no pneumothorax or pleural effusion. There is no focal osseous or soft tissue abnormality. XR/XR chest 2V IMPRESSION: Subtle right lower lung pneumonia, likely in the right middle lobe. No effusion. Electronically signed by: Dada Pires MD 04/25/2024 01:14 PM ESVIN STEPHENS
--- OUTSIDE RECORDS SUMMARY | 2024-04-25 14:11 | XMS_ITS ---
Author Organization Boone Oconnell MD Address [address] [place] [phone] Care Team Providers Care Reinforced Concrete Inspector Name Role Phone Boone Oconnell Primary Care Provider Allergies Allergen (clinical drug ingredient) Drug/Non Drug Allergy documented on EMR Reaction Allergy Type Onset Date Status Simvastatin myalgia Drug Allergy Activ e atorvastatin Lipitor myalgia Drug Allergy Acti ve REASON FOR VISIT coughing nonproductive Covid test negative this AM, looking for Chest xray Medications Medication SIG (Take, Route, Frequency, Duration) Notes Start Date End Date Status Omeprazole 20 MG take one capsule ethan ry day Orally Once a day for 90 days Not-Taking Valtrex 1 GM 1 tablet Orally twic e a day for 5 days 05/17/2020 Not-Taking CeleBREX 200 MG 1 capsule Orally Onc e a day for 30 Not-Taking ProAir RespiClick 108 (90 Base) MCG/ACT 2 puff as needed Inhalation every 4 hrs for 30 days 08/15/2016 Not-Taking Nitrostat 0.4 MG 1 tablet under the tongue Sublingual every 8 hrs for 30 day(s) 03/04/2011 Not-Taking Lisinopril-hydroCHLOROthi azide 20-12.5 MG TAKE 1 TABLET BY MOUTH EVERY DAY FOR 90 DAYS Orally Once a day Active amLODIPine Besylate 5 MG TAKE 1 TABLET B Y MOUTH EVERY DAY FOR 90 DAYS Orally Once a day Active Meloxicam 15 MG 1 tablet Orally Once a day for 30 day(s) 09/08/2022 Not-Taking Metoprolol Succinate ER 25 MG TAKE 1 TABLET BY MOUTH EVERY DAY FOR 90 DAYS Orally Once a day Active Pravastatin Sodium 40 MG TAKE 1 TABLET B Y MOUTH EVERY DAY Orally Once a day Active Fish Oil 1000 MG 1 capsule Orally Onc e a day Active Vital Signs Height 68 in 04/25/2024 Weight 200 lbs 04/25/2024 BMI 30.41 kg/m2 04/25/2024 weight at home is 200 BP not taken today Encounters Encounter Location Date Provider Diagnosis Boone Oconnell MD [address] [place] [address] [place] [phone] 04/25/2024 Boone Oconnell Cough R05.9 Assessments Encounter Date Diagnosis (ICD Code) Assessment Notes Treatment Notes Treatment Clinical Notes Section Notes 04/25/2024 Cough (ICD-10 - R05.9) order faxed to [facility] patient's Reg Plan Of Treatment Treatment Notes Assessment Notes Cough order faxed to [facility] p atient's Reg Pending Test Test Name Order Date XR CHEST 2 VIEW PA & LAT 04/25/2024 Next Appt Details Provider Name:Boone anne, 09/05/2024 07:15:00 AM, [address] [place] [address], [address] [place] [address], [phone], Provider Name:Boone anne, 09/09/2024 09:30:00 AM, [address] [place] [address], [place] [address], [place], [place], [phone], Progress Notes * Saravanan CARPENTER MDOB:1940 (83 yo M)Acc No.[id number]:04/25/2024 Patient:?Saravanan CARPENTER Provider:?Boone Oconnell MD :1940???Age:83 Y???Sex:Male Niles e:04/25/2024 Address:[address] [phone] Subjective: * Chief Complaints: * ???1. coughing nonproductive Covid test negative this AM. 2. looking for Chest xray. * HPI: ???Symptom(s):?Telehealth?Location of provider rendering services:?[address], [address],?Location of patient:?at address listed in demographics for today's visit,?Patient identification confirmed using:?Name, ,?Telehealth method:?Telephone only. Patient not visible to care provider.,?Consent:?Patient verbally consented to treatment, Patient verbally consented to billing insurance company, Patient informed of any privacy concerns related to method of visit,?Total time spend talking with patient (minutes)?0.? had the flu and still coughing. coughing a little more at night. no fevers. * ROS:?General/Constitutional:?Denies?Chills.?Denies?Fatigue.?Denies?Fever.?Denies?Headache.?ENT:?Denies?Sore throat.?Respiratory:?Admits?Cough.?Denies?Shortness of breath at rest.?Denies?Shortness of breath with exertion.?Denies?Sputum production.?Gastrointestinal:?Denies?Diarrhea.?Denies?Nausea.? * Medical History:?Prostate ca ncer, Hypercholesterolemia, Hematuria, Colonoscopy 05/2009 due in 10 years. colonoscopy 2016, 2011 had an equivical stress test. probably negative, [facility] 2023 negative for any aneuysm. * Medications:?Taking Fish Oil 1000 MG Capsule Delayed Release 1 capsule Orally Once a day , Taking Pravastatin Sodium 40 MG Tablet TAKE 1 TABLET BY MOUTH EVERY DAY Orally Once a day , Taking Metoprolol Succinate ER 25 MG Tablet Extended Release 24 Hour TAKE 1 TABLET BY MOUTH EVERY DAY FOR 90 DAYS Orally Once a day , Taking amLODIPine Besylate 5 MG Tablet TAKE 1 TABLET BY MOUTH EVERY DAY FOR 90 DAYS Orally Once a day , Taking Lisinopril-hydroCHLOROthiazide 20-12.5 MG Tablet TAKE 1 TABLET BY MOUTH EVERY DAY FOR 90 DAYS Orally Once a day , Not-Taking/PRN Meloxicam 15 MG Tablet 1 tablet Orally Once a day , Not-Taking/PRN Valtrex 1 GM Tablet 1 tablet Orally twice a day , Not-Taking/PRN Omeprazole 20 MG Capsule Delayed Release take one capsule every day Orally Once a day , Not-Taking/PRN ProAir RespiClick 108 (90 Base) MCG/ACT Aerosol Powder Breath Activated 2 puff as needed Inhalation every 4 hrs , Not-Taking/PRN CeleBREX 200 MG Capsule 1 capsule Orally Once a day , Not-Taking/PRN Nitrostat 0.4 MG Tablet Sublingual 1 tablet under the tongue Sublingual every 8 hrs , Medication List reviewed and reconciled with the patient * Allergies:?Lipitor: myalgia, Simvastatin: myalgia. Objective: * Vitals:?Ht: 68, Wt: 200, BMI :30.41, Wt-k.72. weight at home is 200? BP? not taken today. Assessment: * Assessment: 1.?Cough - R05.9 (Primary)?? ? Plan: * Treatment: * * The named appointment provid er may or may not be the originator of this progress note, and it is not deemed complete until electronically signed by the appointment provider. Sign off status: Pending * Provider:?Boone Oconnell MD Date:?0 04/25/2024 Generated for Harsh jasmine/Rashel/Gonzalezsmitting on:?04/25/2024 02:11 PM EST History and Physical Notes * HPI (History of Present Illness) Category Sub-Category Detail Notes Category Not es Symptom(s) Telehealth [facility] ider rendering services:: [address], [address] had the flu and still coughing. coughing a little more at night. no fevers. Location of patient:: at address listed in demographics for today's visit Patient identification confirmed using:: Name, Telehealth method:: Telephone only. Kaylin ent not visible to care provider. Consent:: Patient verbally c onsented to treatment, Patient verbally consented to billing insurance company, Patient informed of any privacy concerns related to method of visit Total time spend talking with patient (m inutes): 0
--- OUTSIDE RECORDS SUMMARY | 2024-04-25 14:11 | XMS_ITS ---
Author Organization Boone Oconnell MD Address [address] [place] [phone] Care Team Providers Care Railway Head Tender Name Role Phone Boone Oconnell Primary Care Provider Allergies Allergen (clinical drug ingredient) Drug/Non Drug Allergy documented on EMR Reaction Allergy Type Onset Date Status Simvastatin myalgia Drug Allergy Activ e atorvastatin Lipitor myalgia Drug Allergy Acti ve REASON FOR VISIT 6 MO F/U Medications Medication SIG (Take, Route, Frequency, Duration) Notes Start Date End Date Status Pravastatin Sodium 40 MG TAKE 1 TABLET B Y MOUTH EVERY DAY Orally Once a day Active Metoprolol Succinate ER 25 MG TAKE 1 TABLET BY MOUTH EVERY DAY FOR 90 DAYS Orally Once a day Active Lisinopril-hydroCHLOROthi azide 20-12.5 MG TAKE 1 TABLET BY MOUTH EVERY DAY FOR 90 DAYS Orally Once a day Active Nitrostat 0.4 MG 1 tablet under the tongue Sublingual every 8 hrs for 30 day(s) 03/04/2011 Not-Taking amLODIPine Besylate 5 MG TAKE 1 TABLET B Y MOUTH EVERY DAY FOR 90 DAYS Orally Once a day Active Meloxicam 15 MG 1 tablet Orally Once a day for 30 day(s) 09/08/2022 Not-Taking Valtrex 1 GM 1 tablet Orally twic e a day for 5 days 05/17/2020 Not-Taking Omeprazole 20 MG take one capsule ethan ry day Orally Once a day for 90 days Not-Taking ProAir RespiClick 108 (90 Base) MCG/ACT 2 puff as needed Inhalation every 4 hrs for 30 days 08/15/2016 Not-Taking CeleBREX 200 MG 1 capsule Orally Onc e a day for 30 Not-Taking Fish Oil 1000 MG 1 capsule Orally Onc e a day Active Vital Signs Blood pressure systolic 162 mm Hg 03/17/19 25 Blood pressure diastolic 70 mm Hg 025 Height 68 in 03/17/2024 Weight 207 lbs 03/17/2024 BMI 31.47 kg/m2 03/17/2024 Encounters Encounter Location Date Provider Diagnosis Boone Oconnell MD [address] [place] [address] Drive [address] [place] [phone] 03/17/2024 Boone Oconnell Essential hypertensi on I10 ; Pure hypercholesterolemia E78.00 and Type 2 diabetes mellitus with diabetic neuropathy E11.40 Assessments Encounter Date Diagnosis (ICD Code) Assessment Notes Treatment Notes Treatment Clinical Notes Section Notes 03/17/2024 Essential hypertensi on (ICD-10 - I10) doing well on meds, will continue current regiment 03/17/2024 Pure hypercholesterolemia (ICD-10 - E78.00) won't take any more meds, will continue to monitor 03/17/2024 Type 2 diabetes kyle itus with diabetic neuropathy (ICD-10 - E11.40) stable, will contiue to monitor Plan Of Treatment Medication Medication Name Sig Start Date Stop Date Notes Pravastatin Sodium 40 MG TAKE 1 TABLET B Y MOUTH EVERY DAY Orally Once a day Metoprolol Succinate ER 25 MG TAKE 1 TAB LET BY MOUTH EVERY DAY FOR 90 DAYS Orally Once a day Lisinopril-hydroCHLOROthiazi de 20-12.5 MG TAKE 1 TABLET BY MOUTH EVERY DAY FOR 90 DAYS Orally Once a day amLODIPine Besylate 5 MG TAKE 1 TABLET B Y MOUTH EVERY DAY FOR 90 DAYS Orally Once a day Treatment Notes Assessment Notes Essential hypertension doing well on med s, will continue current regiment Pure hypercholesterolemia won't take any more meds, will continue to monitor Type 2 diabetes mellitus with diabetic n europathy stable, will contiue to monitor Next Appt Details Provider Name:Boone Barber ieceleste, 09/05/2024 07:15:00 AM, [address], [address], [place], [place], [phone], Provider Name:Boone Barber ier, 09/09/2024 09:30:00 AM, [address], [address], [place], [place], [phone], Progress Notes * Saravanan CARPENTER MDOB:1940 (83 yo M)Acc No.[id number]:03/17/2024 Progress Notes Patient:?Saravanan CARPENTER Provider:?Boone Oconnell MD :1940???Age:83 Y???Sex:Male Niles e:03/17/2024 Address:[address] [place], [place] [phone] Subjective: * Chief Complaints: * ???6 MO F/U * HPI: ???Symptom(s):? patient is a 83 yo male here for 6 month follow up visit. vision little worse. can't drive. * ROS:?General/Constitutional:?Denies?Chills.?Denies?Fatigue.?Denies?Fever.?Denies?Headache.?ENT:?Patient denies?decreased sense of smell , any loss of taste , sore throat.?Denies?Sore throat.?Respiratory:?Denies?Cough.?Denies?Shortness of breath at rest.?Denies?Shortness of breath with exertion.?Cardiovascular:?Denies?Chest pain at rest.?Denies?Chest pain with exertion.?Denies?Dizziness.?Denies?Palpitations.?Denies?Shortness of breath.?Gastrointestinal:?Denies?Diarrhea.?Denies?Nausea.?Musculoskeletal:?Patient denies?muscle aches.?Peripheral Vascular:?Patient denies?red and blue toes.? * Medical History:? * Surgical History:? * Hospitalization/Major Diagno stic Procedure:? * Medications:?TakingFish Oil 1000 MG Capsule Delayed Release 1 capsule Orally Once a day Metoprolol Succinate ER 25 MG Tablet Extended Release 24 Hour TAKE 1 TABLET BY MOUTH EVERY DAY FOR 90 DAYS Orally Once a day Pravastatin Sodium 40 MG Tablet TAKE 1 TABLET BY MOUTH EVERY DAY Orally Once a day amLODIPine Besylate 5 MG Tablet TAKE 1 TABLET BY MOUTH EVERY DAY FOR 90 DAYS Orally Once a day Lisinopril-hydroCHLOROthiazide 20-12.5 MG Tablet TAKE 1 TABLET BY MOUTH EVERY DAY FOR 90 DAYS Orally Once a day Taking Fish Oil 1000 MG Capsule Delayed Release 1 capsule Orally Once a day Taking Metoprolol Succinate ER 25 MG Tablet Extended Release 24 Hour TAKE 1 TABLET BY MOUTH EVERY DAY FOR 90 DAYS Orally Once a day Taking Pravastatin Sodium 40 MG Tablet TAKE 1 TABLET BY MOUTH EVERY DAY Orally Once a day Taking amLODIPine Besylate 5 MG Tablet TAKE 1 TABLET BY MOUTH EVERY DAY FOR 90 DAYS Orally Once a day Taking Lisinopril-hydroCHLOROthiazide 20-12.5 MG Tablet TAKE 1 TABLET BY MOUTH EVERY DAY FOR 90 DAYS Orally Once a day Not-Taking/PRNMeloxicam 15 MG Tablet 1 tablet Orally Once a day Valtrex 1 GM Tablet 1 tablet Orally twice a day Omeprazole 20 MG Capsule Delayed Release take one capsule every day Orally Once a day ProAir RespiClick 108 (90 Base) MCG/ACT Aerosol Powder Breath Activated 2 puff as needed Inhalation every 4 hrs CeleBREX 200 MG Capsule 1 capsule Orally Once a day Nitrostat 0.4 MG Tablet Sublingual 1 tablet under the tongue Sublingual every 8 hrs Medication List reviewed and reconciled with the patientNot-Taking/PRN Meloxicam 15 MG Tablet 1 tablet Orally Once a day Not-Taking/PRN Valtrex 1 GM Tablet 1 tablet Orally twice a day Not-Taking/PRN Omeprazole 20 MG Capsule Delayed Release take one capsule every day Orally Once a day Not-Taking/PRN ProAir RespiClick 108 (90 Base) MCG/ACT Aerosol Powder Breath Activated 2 puff as needed Inhalation every 4 hrs Not-Taking/PRN CeleBREX 200 MG Capsule 1 capsule Orally Once a day Not- Taking/PRN Nitrostat 0.4 MG Tablet Sublingual 1 tablet under the tongue Sublingual every 8 hrs Medication List reviewed and reconciled with the patient * Allergies:?Lipitor: myalgiaS imvastatin: myalgiayes[Allergies Verified] Objective: * Vitals:?Ht: 68, Wt: 207, BMI :31.47, BP:162/70, Repeat BP:140/60, Wt-k.89. * ???Past Orders: ???Lab:Neymar Moreno (Order Date - 03/11/2024) (Collection Date & Time - 03/11/2024 08:00 AM) ? Value Reference Range ?Neymar Moreno See Note - ???Lab:Liver Panel (Order Da te 03/11/2024) (Collection Date & Time - 03/11/2024 08:00 AM) ? Value Reference Range ?Bilirubin Total 1.0 0.0- 1.0 - mg/dL ?Bilirubin Direct 0.2 0.0 -0.5 - mg/dL ?Aspartate Amino Transferase 25 5-37 - U/L ?Alanine Aminotransferase 19 0-40 - U/L ?Total Protein 6.3 L 6.5-8. 0 - g/dL ?Albumin Level 4.0 3.5-5. 0 - g/dL ?Alkaline Phosphatase 55 39-117 - U/L ???Lab:Glucose Fasting (Orde r Date - 03/11/2024) (Collection Date & Time - 03/11/2024 08:00 AM) ? Value Reference Range ?Glucose Fasting 103 H 60-9 9 - mg/dL ???Lab:Lipid Panel with Refl ex (Order Date - 03/11/2024) (Collection Date & Time - 03/11/2024 08:00 AM) ? Value Reference Range ?Triglycerides 128 <150 - mg/dL ?Cholesterol 205 H <200 - m g/dL ?LDL Cholesterol Calculated 135 H <100 - mg/dL ?HDL Cholesterol 45 >40 - mg/dL ???Lab:Hemoglobin A1c (Order Date - 03/11/2024) (Collection Date & Time - 03/11/2024 08:00 AM) ? Value Reference Range ?Hemoglobin A1c % 5.6 <6. 0 - % ?Estimated Average Glucose 114 - mg/dL * Examination: ???General Examination: ?GENERAL APPEARANCE:?alert, well hydrated, in no distress.?HEAD:?normocephalic.?SKIN:?good turgor.?HEART:?regular rate and rhythm , no murmurs, rubs, gallops.?LUNGS:?no wheezes, rales, rhonchi.? Assessment: * Assessment: 1.?Essential hypertension - I10 (Primary)???2.?Pure hypercholesterolemia - E78.00???3.?Type 2 diabetes mellitus with diabetic neuropathy - E11.40??? Plan: * Treatment: 2.?Pure hypercholesterolemia ? Continue Pravastatin Sodium Tablet, 40 MG, TAKE 1 TABLET BY MOUTH EVERY DAY, Orally, Once a day.?? Notes: won't take any more meds, will continue to monitor?? 3.?Type 2 diabetes mellitus with diabetic neuropathy? Notes: stable, will contiue to monitor?? * Procedure Codes:?G2211 Compl ex e/m visit add on * * Sign off status: Completed true * Provider:?Boone Oconnell MD Date:?0 03/17/2024 Generated for Harsh jasmine/Rashel/eTransmitting on:?04/25/2024 02:11 PM EST History and Physical Notes * HPI (History of Present Illness) Category Sub-Category Detail Notes Category Not es Symptom(s) patient is a 83 yo male here for 6 month follow up visit. vision little worse. can't drive Examination Category Sub-Category Detail Notes Category Not es General Examination GENERAL APPEARANCE: alert, w ell hydrated, in no distress HEAD: normocephalic HEART: regular rate and rhy thm , no murmurs, rubs, gallops LUNGS: no wheezes, rales, r honchi SKIN: good turgor
--- OUTSIDE RECORDS SUMMARY | 2024-04-25 14:12 | XMS_ITS ---
Author Organization Boone Oconnell MD Address [address] [place] [phone] Care Team Providers Care Warp Bleaching Vat Tender Name Role Phone Boone Oconnell Primary Care Provider Results Component Value Reference Range Notes Liver Panel Reviewed date:03/11/2024 05:08:45 PM Interpretation: Performing Lab:[facility], [address] [place] [phone] Notes/Report: Bilirubin Total 1.0 0.0-1.0 mg/dL Bilirubin Direct 0.2 0.0-0.5 mg/dL Aspartate Amino Transferase 25 5-37 U/L Alanine Aminotransferase 19 0-40 U/L Total Protein 6.3 6.5-8.0 g/dL Albumin Level 4.0 3.5-5.0 g/dL Alkaline Phosphatase 55 39-117 U/L Glucose Fasting Reviewed date:03/11/2024 05:10:55 PM Interpretation: Performing Lab:[facility], [address] [place] [phone] Notes/Report: Glucose Fasting 103 60-99 mg/dL A fasting glucose from 100-125 mg/dl is considered impaired (pre-diabetes). Lipid Panel with Reflex Reviewed date:03/11/2024 05:08:35 PM Interpretation: Performing Lab:[facility], [address] [place] [phone] Notes/Report: Triglycerides 128 <150 mg/dL Desirable Triglyceride: less than 150 mg/dL Borderline High Triglyceride 150-199 mg/dL High Triglyceride: 200-499 mg/dL Very High Triglyceride: greater than or equal to 5OO mg/dL Cholesterol 205 <200 mg/dL Desirable Cholesterol: less than 200 mg/dL Borderline High Cholesterol: 200-239 mg/dL High Cholesterol: greater than 239 mg/dL LDL Cholesterol Calculated 135 <100 mg/dL Desirable LDL: less than 100 mg/dL Near Optimal/Above Optimal LDL: 110-129 mg/dL Borderline High LDL: 130-159 mg/dL High LDL: 160-189 mg/dL Very High LDL: greater than or equal to 190 mg/dL HDL Cholesterol 45 >40 mg/dL Desirable HDL: greater than 40 mg/dL Note: This HDL assay may give artificially low results in patients with liver disease. Hemoglobin A1c Reviewed date:03/11/2024 12:38:36 PM Interpretation: Performing Lab:[facility], [address] [place] [phone] Notes/Report: Hemoglobin A1c % 5.6 <6.0 % [...] average glucose, using the formula of the [id number] Average Glucose study (ADAG), Diabetes Care, Vol.31,#8, Sep. 2007 REASON FOR VISIT FASTING LIPIDS Encounters Encounter Location Date Provider Diagnosis Boone Oconnell MD [address] [place] [address] Drive [address] [place], [place] [phone] 03/11/2024 Boone Oconnell Type 2 diabetes kyle itus with diabetic neuropathy E11.40 and Pure hypercholesterolemia E78.00 Assessments Encounter Date Diagnosis (ICD Code) Assessment Notes Treatment Notes Treatment Clinical Notes Section Notes 03/11/2024 Type 2 diabetes kyle itus with diabetic neuropathy (ICD-10 - E11.40) 03/11/2024 Pure hypercholesterolemia (ICD-10 - E78.00) Plan Of Treatment Next Appt Details Provider Name:Boone Barebr ier, 09/05/2024 07:15:00 AM, [address] [place] [address], Suite [facility], [place], [place], [phone], Provider Name:Boone Barber ier, 09/09/2024 09:30:00 AM, [address] [place] [address], [place] [address], [place], [place], [phone], Progress Notes * Saravanan CARPENTER MDOB:1940 (83 yo M)Acc No.[id number]:03/11/2024 Progress Note Patient:?Saravanan CARPENTER Provider:?Boone Oconnell MD :1940???Age:83 Y???Sex:Male Niles e:03/11/2024 Address:[address] [place], [place] [phone] Subjective: * Chief Complaints: * ???1. FASTING LIPIDS. * Medical History:? Objective: * Vitals:? Assessment: * Assessment: 1.?Type 2 diabetes mellitus with diabetic neuropathy - E11.40 (Primary)???2.?Pure hypercholesterolemia - E78.00??? Plan: * Treatment: 2.?Pure hypercholesterolemia ?LAB: Liver Panel (Collection Date & Time - 03/11/2024 08:00 AM) ?LAB: Glucose Fasting (Collection Date & Time - 03/11/2024 08:00 AM) ?LAB: Lipid Panel with Reflex (Collection Date & Time - 03/11/2024 08:00 AM) ?LAB: Hemoglobin A1c (Collection Date & Time - 03/11/2024 08:00 AM) * Procedure Codes:?25522 VENIP UNCT, ROUTINE* * * The named appointment provid er may or may not be the originator of this progress note, and it is not deemed complete until electronically signed by the appointment provider. Sign off status: Pending * Provider:?Boone Oconnell MD Date:?0 03/11/2024 Generated for Harsh jasmine/Rashel/Tejinderitting on:?04/25/2024 02:11 PM EST
== END 2024-04-25 12:27 | disposition home or self-care (01) ==
LOC: HO.XRAY 12:26
PROVIDERS: PCP Internal Medicine; Visit Provider Internal Medicine
DX: R05.9 Cough, unspecified (principal)
CPT/HCPCS: 71046

== ENCOUNTER → 2024-04-25 12:30 | Outpatient (BNV) | payer MEDICARE, SELFPAY | PROVIDERS: PCP Internal Medicine; Visit Provider Radiology Diagnostic Radiology | DX: J18.9 Pneumonia, unspecified organism (principal) | CPT/HCPCS: 71046 ==

== ENCOUNTER 2024-05-06 12:16 | Outpatient (REF) | payer MEDICARE, SELFPAY ==
--- NOTE | ~2024-05-06 | XR_ITS ---
EXAMINATION: XR CHEST CLINICAL INFORMATION: PNEUMONIA COMPARISON: April 25, 2024. TECHNIQUE: 2 views of the chest were obtained. FINDINGS: No consolidation, pleural effusion or pneumothorax. Cardiomediastinal silhouette demonstrates calcified plaque Arctic arch. Multilevel thoracic spondylosis. XR/XR chest 2V IMPRESSION: No acute airspace disease. Electronically signed by: Ezra Stevens MD 05/06/2024 12:41 PM EST
--- OUTSIDE RECORDS SUMMARY | 2024-05-06 14:01 | XMS_ITS ---
Author Organization Boone Oconnell MD Address [address] [place] [phone] Care Team Providers Care Gas Derrick Operator Name Role Phone Boone Oconnell Primary Care [...] Location Date Provider Diagnosis Boone Oconnell MD [address] [place] [address] [address] [place] [phone] 03/17/2024 Boone Oconnell Essential hypertensi on I10 [...] 07:15:00 AM, [address], [address], [place], [place], [phone], Provider Name:Boone Barber ier, 09/09/2024 09:30:00 AM, [address], [address], [place], [place], [phone], Progress Notes * Saravanan CARPENTER MDOB:1940 (83 yo M)Acc No.[id number]:03/17/2024 Progress Notes Patient:?Saravanan CARPENTER Provider:?Boone Oconnell MD :1940???Age:83 Y???Sex:Male Niles e:03/17/2024 Address:[address] [place], [place] [phone] Subjective: * Chief Complaints: * ???6 MO [...] MD Date:?0 03/17/2024 Generated for Harsh jasmine/Rashel/eTransmitting on:?05/06/2024 02:01 PM EST History and Physical Notes * [...]
--- OUTSIDE RECORDS SUMMARY | 2024-05-06 14:01 | XMS_ITS ---
Author Organization Boone Oconnell MD Address [address] [place] [phone] Care Team Providers Care Rental Manager Name Role Phone Boone Oconnell Primary Care [...] Location Date Provider Diagnosis Boone Oconnell MD [address] [place] [address] [address] [place] [phone] 04/25/2024 Boone Oconnell Cough R05.9 Assessments Encounter Date Diagnosis (ICD Code) Assessment Notes Treatment Notes Treatment Clinical Notes Section Notes 04/25/2024 Cough (ICD-10 - R05.9) order faxed to [facility] patient's Reg Plan Of Treatment Treatment Notes Assessment Notes Cough order faxed to [facility] p atient's Reg Pending Test Test Name Order Date XR CHEST 2 VIEW PA & LAT 04/25/2024 Next Appt Details Provider Name:Boone anne, 09/05/2024 07:15:00 AM, [address] [place] [address], [address] [place] [address], [phone], Provider Name:Boone anne, 09/09/2024 09:30:00 AM, [address] [place] [address], [place] [address], [place], [place], [phone], Progress Notes * Saravanan CARPENTER MDOB:1940 (83 yo M)Acc No.[id number]:04/25/2024 Patient:?Saravanan CARPENTER Provider:?Boone Oconnell MD :1940???Age:83 Y???Sex:Male Niles e:04/25/2024 Address:[address] [phone] Subjective: * Chief Complaints: * ???1. [...] of visit,?Total time spend talking with patient (minutes)?15.? had the flu and still coughing. coughing a little more at night. no fevers. * ROS:?General/Constitutional:?Denies?Chills.?Denies?Fatigue.?Denies?Fever.?Denies?Headache.?ENT:?Denies?Sore throat.?Respiratory:?Admits?Cough.?Denies?Shortness of breath at rest.?Denies?Shortness of breath with exertion.?Denies?Sputum production.?Gastrointestinal:?Denies?Diarrhea.?Denies?Nausea.? * Medical History:?Prostate ca ncer, Hypercholesterolemia, Hematuria, Colonoscopy 05/2009 due in 10 years. colonoscopy 2016, 2011 had an equivical stress test. probably negative, [facility] 2023 negative for any aneuysm. * Medications:?Taking [...] Oconnell MD Date:?0 04/25/2024 Generated for Harsh jasmine/Rashel/Gonzalezsmparamjit on:?05/06/2024 02:01 PM EST History and Physical Notes * HPI (History of Present Illness) Category Sub-Category Detail Notes Category Not es Symptom(s) Telehealth Location of [facility] ider rendering services:: [address], [address] [...] time spend talking with patient (m inutes): 15
--- OUTSIDE RECORDS SUMMARY | 2024-05-06 14:02 | XMS_ITS ---
Author Organization Boone Oconnell MD Address [address] [place] [phone] Care Team Providers Care Ring Maker Name Role Phone Boone Oconnell Primary Care Provider REASON FOR VISIT CXR order Encounters Encounter Location Date Provider Diagnosis Boone Oconnell MD [address] [place] [phone] 04/26/2024 Boone Oconnell Pneumonia J18.9 Assessments Encounter Date Diagnosis (ICD Code) Assessment Notes Treatment Notes Treatment Clinical Notes Section Notes 04/26/2024 Pneumonia (ICD-10 - J18.9) Plan Of Treatment Pending Test Test Name Order Date XR chest 2V 04/26/2024 Next Appt Details Provider Name:Boone anne, 09/05/2024 07:15:00 AM, [address], [address] [place] [address], [phone], Provider Name:Boone Barber omid, 09/09/2024 09:30:00 AM, [address], [address], [place], [place], [phone], Progress Notes * Saravanan CARPENTER MDOB:1940 (83 yo M)Acc No.[id number]:04/26/2024 Patient:?Saravanan CARPENTER :1940???Age:83 Y???Sex:Male Address:[address] [place] [phone] Subjective: * Chief Complaints: * ???CXR order * Medical History:? * Surgical History:? * Hospitalization/Major Diagno stic Procedure:? * Medications:? Objective: * Vitals:? * Physical Examination:? Assessment: * Assessment: 1.?Pneumonia - J18.9??? Plan: * Treatment: * Procedure Codes:? * true * Date:? Generated for Harsh jasmine/Rashel/eTransmitting on:?05/06/2024 02:02 PM EST
== END 2024-05-06 12:17 | disposition home or self-care (01) ==
LOC: HO.XRAY 12:16
PROVIDERS: PCP Internal Medicine; Visit Provider Internal Medicine
DX: J18.9 Pneumonia, unspecified organism (principal)
CPT/HCPCS: 71046

== ENCOUNTER → 2024-05-06 12:21 | Outpatient (BNV) | payer MEDICARE, SELFPAY | PROVIDERS: PCP Internal Medicine; Visit Provider Radiology Diagnostic Radiology | DX: J18.9 Pneumonia, unspecified organism (principal) | CPT/HCPCS: 71046 ==

== ENCOUNTER 2024-05-30 11:46 | Outpatient (REF) | payer MEDICARE, SELFPAY ==
--- NOTE | ~2024-05-30 | XR_ITS ---
EXAMINATION: XR ELBOW 3 VIEWS LEFT HISTORY: ELBOW INJURY COMPARISON: Comparison is made with the prior examination dated 11/04/2019. FINDINGS: Three views of the left elbow are submitted. Osseous mineralization is normal. There is no fracture or dislocation. The joint spaces are preserved. There is minimal soft tissue swelling over the olecranon process of the ulna. There is no joint effusion. XR/XR elbow LT min 3V IMPRESSION: Minimal soft tissue swelling over the olecranon. Otherwise unremarkable examination of the left elbow. Electronically signed by: Georges Reed MD 05/31/2024 08:05 AM EDT
--- OUTSIDE RECORDS SUMMARY | 2024-05-30 13:35 | XMS_ITS ---
Author Organization Boone Oconnell MD Address [address] [place] [phone] Care Team Providers Care Slate Worker Name Role Phone Boone Oconnell Primary Care Provider REASON FOR VISIT CXR order Encounters Encounter Location Date Provider Diagnosis Boone Oconnell MD [address] [place] [phone] 04/26/2024 Boone Oconnell Pneumonia J18.9 Assessments Encounter Date Diagnosis (ICD Code) Assessment Notes Treatment Notes Treatment Clinical Notes Section Notes 04/26/2024 Pneumonia (ICD-10 - J18.9) Plan Of Treatment Pending Test Test Name Order Date XR chest 2V 04/26/2024 Next Appt Details Provider Name:Boone anne, 09/05/2024 07:15:00 AM, [address], [address] [place] [address], [phone], Provider Name:Boone Barber omid, 10/11/2024 09:30:00 AM, [address], [address], [place], [place], [phone], Progress Notes * Saravanan CARPENTER MDOB:1940 (83 yo M)Acc No.[id number]:04/26/2024 Patient:?Saravanan CARPENTER :1940???Age:83 Y???Sex:Male Address:[address] [place] [phone] Subjective: * Chief Complaints: * ???CXR order * Medical History:? * Surgical History:? * Hospitalization/Major Diagno stic Procedure:? * Medications:? Objective: * Vitals:? * Physical Examination:? Assessment: * Assessment: 1.?Pneumonia - J18.9??? Plan: * Treatment: * Procedure Codes:? * true * Date:? Generated for Harsh jasmine/Rashel/eTransmitting on:?05/30/2024 01:35 PM EDT
--- OUTSIDE RECORDS SUMMARY | 2024-05-30 13:35 | XMS_ITS ---
Author Organization Boone Oconnell MD Address [address] [place] [phone] Care Team Providers Care Big Data Solutions Architect Name Role Phone Boone Oconnell Primary Care Provider [phone] Allergies Allergen (clinical drug ingredient) Drug/Non Drug Allergy documented on EMR Reaction Allergy Type Onset Date Status Simvastatin myalgia Drug Allergy Activ e atorvastatin Lipitor myalgia Drug Allergy Acti ve REASON FOR VISIT Left Elbow pain after a fall Medications Medication SIG (Take, Route, Frequency, Duration) Notes Start Date End Date Status Nitrostat 0.4 MG 1 tablet under the tongue Sublingual every 8 hrs for 30 day(s) 03/04/2011 Not-Taking CeleBREX 200 MG 1 capsule Orally Onc e a day for 30 Not-Taking Metoprolol Succinate ER 25 MG TAKE 1 TABLET BY MOUTH EVERY DAY FOR 90 DAYS Orally Once a day Active Fish Oil 1000 MG 1 capsule Orally Onc e a day Active Pravastatin Sodium 40 MG TAKE 1 TABLET B Y MOUTH EVERY DAY Orally Once a day Active ProAir RespiClick 108 (90 Base) MCG/ACT 2 puff as needed Inhalation every 4 hrs for 30 days 08/15/2016 Not-Taking Valtrex 1 GM 1 tablet Orally twic e a day for 5 days 05/17/2020 Not-Taking Omeprazole 20 MG take one capsule ethan ry day Orally Once a day for 90 days Not-Taking Lisinopril-hydroCHLOROthi azide 20-12.5 MG TAKE 1 TABLET BY MOUTH EVERY DAY FOR 90 DAYS Orally Once a day Active Meloxicam 15 MG 1 tablet Orally Once a day for 30 day(s) 09/08/2022 Not-Taking amLODIPine Besylate 5 MG TAKE 1 TABLET B Y MOUTH EVERY DAY FOR 90 DAYS Orally Once a day Active Vital Signs Blood pressure systolic 150 mm Hg 05/31/19 25 Blood pressure diastolic 76 mm Hg 025 Height 68 in 05/30/2024 Weight 204 lbs 05/30/2024 BMI 31.01 kg/m2 05/30/2024 weight is up 4 pounds since 04-25-24 Encounters Encounter Location Date Provider Diagnosis Boone Oconnell MD [address] [place] [address] Drive [address] [place] [phone] 05/30/2024 Boone Oconnell Elbow injury, left, initial encounter S59.902A Assessments Encounter Date Diagnosis (ICD Code) Assessment Notes Treatment Notes Treatment Clinical Notes Section Notes 05/30/2024 Elbow injury, left, initial encounter (ICD-10 - S59.902A) order given to patient Plan Of Treatment Treatment Notes Assessment Notes Elbow injury, left, initial encounter or chacorta given to patient Pending Test Test Name Order Date XR elbow LT min 3V 05/30/2024 Next Appt Details Provider Name:Boone anne, 09/05/2024 07:15:00 AM, [address] [place] [address], Suite [facility], [place], [place], [phone], Provider Name:Boone anne, 10/11/2024 09:30:00 AM, [address] [place] [address], Suite [facility], [place], [place], [phone], Progress Notes * Saravanan CARPENTER MDOB:1940 (83 yo M)Acc No.[id number]:05/30/2024 Progress Notes Patient:?Saravanan CARPENTER Provider:?Boone Oconnell MD :1940???Age:83 Y???Sex:Male Niles e:05/30/2024 Address:[address] [place], [place] [phone] Subjective: * Chief Complaints: * ???1. Left Elbow pain after a fall. * HPI: ???Fall Risk:?History?Have you had any falls with injury in the past year??Yes slipped on the ice 6 weeks ago landed on left elbow.? had been getting better after fall on ice and then started to rake. * ROS:?General/Constitutional:?Denies?Chills.?Denies?Fatigue.?Denies?Fever.?Denies?Headache.?ENT:?Denies?Sore throat.?Respiratory:?Denies?Cough.?Denies?Shortness of breath at rest.?Denies?Shortness of breath with exertion.?Gastrointestinal:?Denies?Diarrhea.?Denies?Nausea.? * Medical History:?Prostate ca ncer, Hypercholesterolemia, Hematuria, Colonoscopy 05/2009 due in 10 years. colonoscopy 2011 had an equivical stress test. probably negative, [facility] 2023 negative for any aneuysm. * Medications:?Taking [...] Simvastatin: myalgia. Objective: * Vitals:?Ht: 68, Wt: 204, BMI :31.01, BP:150/76, Repeat BP:130/70, Wt-k.53. weight is up 4 pounds since 04-25-24. * Examination: ???General Examination: ?GENERAL APPEARANCE:?well developed, well nourished.?HEAD:?normocephalic.?HEART:?no murmurs, rubs, gallops, regular rate and rhythm.?LUNGS:?no wheezes, rales, rhonchi, good air movement, clear to auscultation bilaterally.? Assessment: * Assessment: 1.?Elbow injury, left, initi al encounter - L44.902G (Primary)??? Plan: * Treatment: * * The named appointment provid er may or may not be the originator of this progress note, and it is not deemed complete until electronically signed by the appointment provider. Sign off status: Pending * Provider:?Boone Oconnell MD Date:?0 05/30/2024 Generated for Harsh jasmine/Rashel/Tejinderitting on:?05/30/2024 01:35 PM EDT History and Physical Notes * HPI (History of Present Illness) Category Sub-Category Detail Notes Category Not es Fall Risk History Have you had any falls with injury in the past year?: Yes slipped on the ice 6 weeks ago landed on left elbow had been getting better after fall on ice and then started to rake Examination Category Sub-Category Detail Notes Category Not es General Examination GENERAL APPEARANCE: well developed , well nourished HEAD: normocephalic HEART: no murmurs, rubs, ga llops, regular rate and rhythm LUNGS: no wheezes, rales, r honchi, good air movement, clear to auscultation bilaterally
--- OUTSIDE RECORDS SUMMARY | 2024-05-30 13:35 | XMS_ITS ---
Author Organization Boone Oconnell MD Address [address] [place] [phone] Care Team Providers Care Bench Boring Machine Operator Name Role Phone Boone Oconnell Primary [...] Location Date Provider Diagnosis Boone Oconnell MD [address] [place] [address] [address] [place] [phone] 04/25/2024 Boone Oconnell Cough R05.9 Assessments Encounter Date Diagnosis (ICD Code) Assessment Notes Treatment Notes Treatment Clinical Notes Section Notes 04/25/2024 Cough (ICD-10 - R05.9) order faxed to [facility] patient's Reg Plan Of Treatment Treatment Notes Assessment Notes Cough order faxed to [facility] p atient's Reg Pending Test Test Name Order Date XR CHEST 2 VIEW PA & LAT 04/25/2024 Next Appt Details Provider Name:Boone anne, 09/05/2024 07:15:00 AM, [address] [place] [address], [address] [place] [address], [phone], Provider Name:Boone anne, 10/11/2024 09:30:00 AM, [address] [place] [address], [place] [address], [place], [place], [phone], Progress Notes * Saravanan CARPENTER MDOB:1940 (83 yo M)Acc No.[id number]:04/25/2024 Patient:?Saravanan CARPENTER Provider:?Boone Oconnell MD :1940???Age:83 Y???Sex:Male Niles e:04/25/2024 Address:[address] [phone] Subjective: * Chief Complaints: * ???1. [...] equivical stress test. probably negative, [facility] 2023 negative for any aneuysm. * Medications:?Taking [...] Oconnell MD Date:?0 04/25/2024 Generated for Harsh jasmine/Rashel/eTroshnismitting on:?05/30/2024 01:34 PM EDT History and Physical Notes * HPI (History of Present Illness) Category Sub-Category Detail Notes Category Not es Symptom(s) [facility] [address], [address] [...]
== END 2024-05-30 11:47 | disposition home or self-care (01) ==
LOC: HO.XRAY 11:46
PROVIDERS: PCP Internal Medicine; Visit Provider Internal Medicine
DX: S59.902A Unspecified injury of left elbow, initial encounter (principal)
CPT/HCPCS: 73080

== ENCOUNTER → 2024-05-30 11:56 | Outpatient (BNV) | payer MEDICARE, SELFPAY | PROVIDERS: PCP Internal Medicine; Visit Provider Radiology Diagnostic Radiology | DX: S59.902A Unspecified injury of left elbow, initial encounter (principal) | CPT/HCPCS: 73080 ==

== ENCOUNTER 2024-07-05 08:57 | Outpatient (REF) | payer MEDICARE, SELFPAY ==
--- NOTE | ~2024-07-05 | XR_ITS ---
EXAMINATION: XR HAND, LEFT CLINICAL INFORMATION: CARPAL JUAQUIN SYNDROME,ARTHRITIS COMPARISON: None available. TECHNIQUE: PA, lateral, and oblique views of the left hand. FINDINGS: There is joint space narrowing with the minimal articular surface sclerosis involving the proximal and distal interphalangeal joints of the digits. No acute cortical disruption or malalignment. No lytic or blastic lesions. No subcutaneous emphysema. XR/XR hand LT min 3V IMPRESSION: Mild osteoarthrosis, proximal and distal interphalangeal joints. Electronically signed by: Ezra Stevens MD 07/05/2024 09:45 AM EDT
== END 2024-07-05 08:58 | disposition home or self-care (01) ==
LOC: HO.XRAY 08:57
PROVIDERS: PCP Internal Medicine; Visit Provider Internal Medicine
DX: M19.041 Primary osteoarthritis, right hand (principal)
CPT/HCPCS: 73130

== ENCOUNTER → 2024-07-05 09:04 | Outpatient (BNV) | payer MEDICARE, SELFPAY | PROVIDERS: PCP Internal Medicine; Visit Provider Radiology Diagnostic Radiology | DX: M19.042 Primary osteoarthritis, left hand (principal); G56.02 Carpal tunnel syndrome, left upper limb | CPT/HCPCS: 73130 ==

== ENCOUNTER 2024-08-02 08:22 | Outpatient (REF) | payer MEDICARE, SELFPAY ==
--- NOTE | 2024-08-02 08:24 | EMG_ITS ---
Left median and ulnar motor and sensory studies were performed left radial sensory study was performed and paraspinal muscles with limb muscles were tested with a needle. IMPRESSION: 1. 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 2. Mild left ulnar neuropathy across cubital tunnel. 3. Chronic left mid cervical radiculopathy. MD SUGAR Castro/RUBIO / [id number]
--- OUTSIDE RECORDS SUMMARY | 2024-08-02 08:34 | XMS_ITS ---
Author Organization Boone Oconnell MD Address [address] [place] [phone] Care Team Providers Care Lumpia Wrapper Maker Name Role Phone Boone Oconnell Primary Care Provider REASON FOR VISIT EMG order Encounters Encounter Location Date Provider Diagnosis Boone Oconnell MD [address] [place] [phone] 07/21/2024 Boone Oconnell Carpal tunnel syndrome G56.00 Assessments Encounter Date Diagnosis (ICD Code) Assessment Notes Treatment Notes Treatment Clinical Notes Section Notes 07/21/2024 Carpal tunnel syndrome (ICD-10 - G56.00) Plan Of Treatment Pending Test Test Name Order Date EMG 07/21/2024 Next Appt Details Provider Name:Boone anne, 08/02/2024 10:00:00 AM, [address], Suite [facility], [place], [place], [phone], Provider Name:Boone Barber ier, 09/05/2024 07:15:00 AM, [address], [address], [place], [phone], Provider Name:Boone Barber ier, 10/11/2024 09:30:00 AM, [address], [address], [place], [phone], Progress Notes * Saravanan CARPENTER MDOB:1940 (83 yo M)Acc No.[id number]:07/21/2024 Patient:?Saravanan CARPENTER :1940???Age:83 Y???Sex:Male Address:[address] [place] [phone] Subjective: * Chief Complaints: * ???EMG order * Medical History:? * Surgical History:? * Hospitalization/Major Diagno stic Procedure:? * Medications:? Objective: * Vitals:? * Physical Examination:? Assessment: * Assessment: 1.?Carpal tunnel syndrome - G56.00??? Plan: * Treatment: * Procedure Codes:? * true * Date:? Generated for Harsh jasmine/Rashel/Gonzalezsmitting on:?08/02/2024 08:34 AM EDT
== END 2024-08-02 08:23 | disposition home or self-care (01) ==
LOC: HO.NEURO 08:22
PROVIDERS: PCP Internal Medicine; Visit Provider Internal Medicine
DX: G56.02 Carpal tunnel syndrome, left upper limb (principal); R20.0 Anesthesia of skin; M79.642 Pain in left hand
CPT/HCPCS: 95886; 95909

== ENCOUNTER 2024-09-05 10:22 | Outpatient (REF) | payer MEDICARE, SELFPAY ==
[2024-09-05 10:25] LABS: MANUAL DIFF FLAG NO
[2024-09-05 11:16] LABS: Hematocrit 44.0 % (42.0-52.0); Hemoglobin 14.4 g/dl (14.0-18.0); Imm Gran Abs Auto 0.02 X10*3/uL (0.00-0.03); Imm Gran Pct Auto 0.3 % (0.0-0.4); Lymphocytes Absolute Auto 1.5 X10*3/uL (1.2-4.9); Mean Corpuscular HGB Conc 32.7 g/dl (31.0-36.0); Mean Corpuscular Hemoglobin 26.8 pg (27.0-33.0); Mean Corpuscular Volume 81.8 fL (80.0-98.0); NRBC Abs Auto 0.000 X10*3/uL (0.0-0.012); NRBC Pct Auto 0.0 /100WBC (0.0-0.2); Platelet Count 179 X10*3/uL (160-400); Red Blood Count 5.38 X10*6/uL (4.60-5.80); White Blood Count 5.9 X10*3/uL (4.8-10.8)
[2024-09-05 11:18] LABS: Appearance Urine Clear; Glucose Urine UA Negative (Negative); PH 6.0 (5.0-9.0); Specific Gravity - Urine 1.025 (1.005-1.025); UMIC TRIGGER UACC YES
[2024-09-05 11:31] LABS: Hemoglobin A1C 141.7396 umol/L; Total Hemoglobin (HGBA1C) 3758.4081 umol/L
[2024-09-05 11:48] LABS: PSA,Total (Free>4and<10) < 0.10 ng/mL (0.00-4.00)
[2024-09-05 13:18] LABS: Anion Gap 12 (12-20)
[2024-09-05 13:27] LABS: Alanine Aminotransferase 18 U/L (0-40); Albumin Level 4.1 g/dL (3.5-5.0); Alkaline Phosphatase 65 U/L (39-117); Aspartate Amino Transferase 22 U/L (5-37); Blood Urea Nitrogen 16 mg/dL (9-16); Calcium 8.6 mg/dL (8.4-10.2); Carbon Dioxide 27 mmol/L (22-29); Chloride 107 mmol/L (96-108); Cholesterol 182 mg/dL (<200); Estimated Glomerular Filt Rate > 60; HDL Cholesterol 45 mg/dL (>40); Potassium 3.7 mmol/L (3.3-5.1); Sodium 142 mmol/L (135-145); Total Protein 6.3 g/dL (6.5-8.0); Triglycerides 87 mg/dL (<150)
[2024-09-05 14:59] LABS: Microalbum/Creatinine Ratio Ur 9.8 ug/mg cr (<30)
== END 2024-09-05 10:23 | disposition home or self-care (01) ==
LOC: HO.LNP 10:22
PROVIDERS: Visit Provider Internal Medicine
DX: E11.40 Type 2 diabetes mellitus with diabetic neuropathy, unspecified (principal); E78.00 Pure hypercholesterolemia, unspecified; Z12.5 Encounter for screening for malignant neoplasm of prostate
CPT/HCPCS: 80053; 80061; 81001; 82043; 82570; 83036; 84153; 85025

== ENCOUNTER 2024-09-08 10:26 | Outpatient (REF) | payer MEDICARE, SELFPAY ==
--- NOTE | ~2024-09-08 | XR_ITS ---
EXAMINATION: XR CHEST CLINICAL INFORMATION: COUGH COMPARISON: May 06, 2024. TECHNIQUE: 2 views of the chest were obtained. FINDINGS: No consolidation pleural effusion or pneumothorax. No hyperinflation. Cardiomediastinal silhouette size is normal. Calcified plaque thoracic aorta. Multilevel thoracolumbar spondylosis with old 20% compression deformities. Degenerative changes in the acromioclavicular joints. XR/XR chest 2V IMPRESSION: No acute airspace disease. Atherosclerosis. Multilevel spondylosis. Electronically signed by: Ezra Stevens MD 09/08/2024 10:55 AM EDT
== END 2024-09-08 10:27 | disposition home or self-care (01) ==
LOC: HO.XRAY 10:26
PROVIDERS: PCP Internal Medicine; Visit Provider Internal Medicine
DX: R05.9 Cough, unspecified (principal)
CPT/HCPCS: 71046

== ENCOUNTER → 2024-09-08 10:45 | Outpatient (BNV) | payer MEDICARE, SELFPAY | PROVIDERS: PCP Internal Medicine; Visit Provider Radiology Diagnostic Radiology | DX: M47.814 Spondylosis without myelopathy or radiculopathy, thoracic region (principal); I70.90 Unspecified atherosclerosis | CPT/HCPCS: 71046 ==

== ENCOUNTER → 2025-01-02 07:56 | Outpatient (REF) | payer MEDICARE, SELFPAY ==
--- NOTE | 2025-01-02 07:59 | CA_ITS ---
Transthoracic Echocardiogram Patient (Last, First, Middle): Saravanan Yarbrough M Gender: M Date of : 1940 Age: 84 Procedure Date: 01/02/2025 Procedure Type: Transthoracic Echocardiogram Location: OP Height: 175. cm Weight: 90.72 kg BSA: 2.06 m2 Heart Rate: 50 bpm BP: 158 / [address] Lab Technician: ROBERT Referring MD: Mauri Smith MD Symptoms: I35.0 - Nonrheumatic aortic (valve) stenosis Study Quality: Adequate ECG Rhythm: Sinus Conclusions: - The left ventricular systolic function is normal. The calculated ejection fraction is 59% by biplane method. - Moderately increased right ventricular cavity size. - There is severe calcification of the aortic valve. There is moderate aortic valve stenosis. Findings Left Ventricle Normal left ventricular cavity size. There is mildly increased left ventricular wall thickness. The left ventricular systolic function is normal. The calculated ejection fraction is 59% by biplane method. There is no evidence of regional wall motion abnormalities. Evidence suggests grade I (mild) diastolic dysfunction. There is moderate septal and moderate basal asymmetric hypertrophy. Right Ventricle Moderately increased right ventricular cavity size. There is normal right ventricular systolic function. Atria The left atrium is normal in size. The right atrium is mildly dilated. Aortic Valve There is severe calcification of the aortic valve. There is moderate aortic valve stenosis. The mean gradient is 21 mmHg. The aortic valve area is 1.19 cm2. Dimensionless index 0.28. Stroke volume index 45ml/m2. Mitral Valve The mitral valve appears normal. There is trace mitral valve regurgitation. There is no mitral valve stenosis. Pulmonic Valve The pulmonic valve is likely normal. Tricuspid Valve Normal tricuspid valve structure. There is no tricuspid valve regurgitation. Tricuspid regurgitation envelope is inadequate for calculation of right ventricular systolic pressure. Great Vessels The asc aorta is normal in size. Venous The inferior vena cava is normal in size and collapses greater than 50% with inspiration. Pericardium/Pleural There is no evidence of pericardial effusion. Prior Study Comparison No significant change compared to prior study dated: 12/28/2023. Measurements 2D Linear Measurements IVSd: 1.38 0.6-0.9/0.6-1.0 cm LVIDd: 4.27 3.9-5.3/4.2-5.9 cm LVIDd Index: 2.07 2.4-3.2/2.2-3.1 cm/m2 LVIDs: 2.45 2.0-3.6 cm LVPWd: 1.17 0.7-1.1 cm LA Diam: 4.00 2.7-3.8/3.0-4.0 cm LAIDs Index: 1.94 1.5-2.3 cm/m2 LV Mass: 248.93 67-162/88-224 g LV Mass Index: 120.84 43-95/49-115 g/m2 LVOT Diam: 2.30 3.0+(-)1.3 cm 2D Systolic Function EF 4C: 58.30 >55% EF 2C: 60.40 >55% EF BiP: 58.80 >55% Mitral Valve MV Pk E: 0.70 MV PK A: 0.79 MV Decel Time: 372.00 E/A: 0.90 E'Lateral: 5.00 E'Medial: 4.35 E/E' Med: 16.20 E/E' Lat: 14.10 PHT: 109.00 MVA PHT: 2.02 Decel Tama: 1.89 Aortic Valve AoV Pk Alex: 2.97 AoV Mn Alex: 2.16 AoV VTI: 0.79 AoV Pk Grad: 35.00 Aov Mn Grad: 21.00 [place] Cont.VTI: 1.19 LVOT LVOT Pk Alex: 0.85 LVOT Mn Alex: 0.62 LVOT VTI: 0.23 LVOT Pk Grad: 3.00 LVOT Mn Grad: 2.00 LVOT Diam: 2.30 LVOT Area: 4.15 Diastolic Function MV Pk E: 0.70 MV Pk A: 0.79 E/A: 0.90 E'Medial: 4.35 E/E' Med: 16.20 E' Laterial: 5.00 E/E' Lat: 14.10 Right Ventricle TAPSE (mm): 25.30 TVS' Alex: 12.40 Tricuspid Valve RA Press: 3.00 Great Vessels Aorta Sinus of Valsalva: 4.00 2.0-3.5 cm Ao Asc: 3.70 2.1-3.4 cm Ao Arch: 3.10 Pulmonary Veins Pulm Vein S/D 1.40 Pulmonary Valve PV Pk Alex: 1.10 Peak PV Grad: 5.00 Updated in Other Vendor System with Status of Final Jeferson Naranjo MD electronically signed on 01/02/2025 10:29:30 AM with status of Final
--- OUTSIDE RECORDS SUMMARY | 2025-01-02 08:00 | XMS_ITS | Encounter Summary ---
Author Organization [facility] Address [address] [place] [phone] Phone Care Team Providers Care Raw Shellfish Preparer Name Role Phone Boone Oconnell MD Primary Care Provider Encounter Details Date Type Department Care Team (Late Contact Info) Description 05/10/2016 Ophth Exam [facility] Emergency Department [address] [place] [phone] Chandler Key MD [address] [place] [address] Social History Tobacco Use Types Packs/Day Years Used Date Smoking Tobacco: Former Cigarettes 1.5 35 Comments:Quit smokin03/02 Alcohol Use Standard Drinks/Week Comments Yes 0 (1 standard drink = 0.6 oz pur e alcohol) rare social Sex and Gender Information Value Date Recorded Sex Assigned at Not on file Legal Sex Male 5:53 PM EST Gender Identity Not on file Sexual Orientation Not on file documented as of this encounter Plan of Treatment Upcoming Encounters Date Type Department Care Team (Late st Contact Info) Description 01/09/2025 8:45 AM EST Procedure visit [facility] Ophthalmology Laser 12th [address] [facility] [address] [place] [address] Estrellita Braga MD [address] [place] [address] [email or web address] documented as of this encounter Visit Diagnoses Not on filedocumented in this encounter Care Teams Raw Shellfish Preparer Relationship Specialty Start Date End Date Boone Oconnell MD [address] [place] [address] [place] [address] PCP - General Internal Medicine 06/07/15 documented as of this encounter Additional Source Comments The information contained in this document represents components of the legal health record. It is not the complete legal health record.[facility]
--- OUTSIDE RECORDS SUMMARY | 2025-01-02 08:00 | XMS_ITS | Encounter Summary ---
Author Organization [facility] Address [address] [place] [address] Phone Care Team Providers Care Wellness Nurse Rn Name Role Phone Boone Oconnell MD Primary Care Provider Encounter Details Date Type Department Care Team ([facility] Contact Info) Description 05/10/2020 Procedure Pass [facility]TH[facility] 6TH FL PERIOP DEPT 243 [place] [address] Social History Tobacco Use Types Packs/Day Years Used Date Smoking Tobacco: Former Cigarettes 1.5 35 Smokeless Tobacco: Never Comments:Quit smokin03/02 Alcohol Use Standard Drinks/Week Comments [...] Encounters Date Type Department Care Team (Late Contact Info) Description 01/09/2025 8:45 AM EST Procedure visit [facility] Ophthalmology Laser 12th Floor 243 [facility] 12th [place] [address] Estrellita Braga MD 243 [place] [address] [email or web address] documented as of this encounter Visit Diagnoses Not on filedocumented in this encounter Care Teams Wellness Nurse Rn Relationship Specialty Start Date End Date Boone Oconnell MD [address] [place] [address] [place] [address] PCP - General Internal Medicine 06/07/15 documented as of this encounter Additional Source Comments The information contained in this document represents components of the legal health record. It is not the complete legal health record.[facility]
--- OUTSIDE RECORDS SUMMARY | 2025-01-02 08:00 | XMS_ITS | Encounter Summary ---
Author Organization [facility] Address [address] [place] [address] Phone Care Team Providers Care Clinical Trials Nurse Name Role Phone Boone Oconnell MD Primary Care Provider Encounter Details Date Type Department Care Team (Late Contact Info) Description 04/16/2020 Prep for Surgery [facility] [address] [address] Connie Cleary MD [address] [place] [address] 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) Social History Tobacco Use Types Packs/Day Years [...] Description 01/09/2025 8:45 AM EST Procedure visit [facility] Ophthalmology Laser 12th Floor [address] [address] Estrellita Braga MD [address] [place] [address] [email or web address] documented as of this encounter Visit Diagnoses Diagnosis Combined form of senile cataract of right eye- Primary documented in this encounter Care Teams Clinical Trials Nurse Relationship Specialty Start Date End Date Boone Oconnell MD [address] [place] [address] [place] [address] PCP - General Internal Medicine 06/07/15 documented as of this encounter Additional Source Comments The information contained in this document represents components of the legal health record. It is not the complete legal health record.[facility]
--- OUTSIDE RECORDS SUMMARY | 2025-01-02 08:00 | XMS_ITS | Encounter Summary ---
Author Organization [facility] Address [address] [place] [address] Phone Care Team Providers Care Model Maker Plastic Name Role Phone Boone Oconnell MD Primary Care Provider Encounter Details Date Type Department Care Team (Late Contact Info) Description 05/06/[address] [facility] [address] [address] Connie Cleary MD [address] [place] [address] [email or web address] Combined form of senile cataract of left eye (Primary Dx) Social History Tobacco Use [...] Description 01/09/2025 8:45 AM EST Procedure visit [facility] Ophthalmology Laser 12th Floor [address] [address] Estrellita Braga MD [address] [place] [address] [email or web address] documented as of this encounter Visit Diagnoses Diagnosis Combined form of senile cataract of left eye- Primary documented in this encounter Care Teams Model Maker Plastic Relationship Specialty Start Date End Date Boone Oconnell MD [address] [place] [address] [place] [address] PCP - General Internal Medicine 06/07/15 documented as of this encounter Additional Source Comments The information contained in this document represents components of the legal health record. It is not the complete legal health record.[facility]
--- OUTSIDE RECORDS SUMMARY | 2025-01-02 08:00 | XMS_ITS | Clinical Summary ---
Author Organization [facility] Address [address] [place] [address] Phone Care Team Providers Care Pv Design Engineer Name Role Phone Boone Oconnell MD Primary Care Provider Allergies No known active allergies Medications aspirin 81 MG EC tablet Take 81 mg by mouth daily. Active metoprolol succinate (TOPROL-XL) 50 MG 24 hr tablet Take 50 mg by mouth daily. Active pravastatin (PRAVACHOL) 10 MG tablet Take 10 mg by mouth daily. Active vitamin A,C & G-zxhybt-xcybst ls (OCUVITE) 1,000 unit-200 mg-60 unit-2 mg Tab Take 1 tablet by mouth 2 (two) times a day. Active omega 1-bgi-rle-fish oil 1,000 mg (120 mg-180 mg) Cap Take 1 capsule by mouth. Active hydroCHLOROthia zide (HYDRODIURIL) 12.5 MG tablet Take 12.5 mg by mouth daily. Active bacitracin ophthalmic ointment Place into the left eye 3 (three) times a day. Apply to affected eyelid skin 3 times a day 3.5 g 07/19/2018 Active Active Problems Problem Noted Date Diagnosed Date Chest pain 03/26/2011 Overview (04/22/2014): Chest pain; one episode ~one month ago monitored Metoprolol stress test came back normal-per pt Cancer 11/02/2008 Overview (04/22/2014): Cancer; prostate Hypertensive disorder 11/02/2008 Overview (04/22/2014): hypertension Sleep apnea 11/02/2008 Overview (04/22/2014): sleep apnea Encounters Date Type Department Care Team Description 10/17/2024 9:00 AM EDT Procedure [place] [facility] 12th Floor 243 [facility] 12th [place] [address] Estrellita Braga MD Exudative age-related macular degeneration of right eye with active choroidal neovascularization (Primary Dx); Advanced nonexudative age-related macular degeneration of left eye without subfoveal involvement from Last 3 Months Family History Medical History Relation Comments Hypertension Father Uncoded Family History Father Substance abuse Diabetes Mother Hypertension Mother Type 2 Diabetes Unspecified diabetes mellitu s type 2; aunt and uncle Relation Status Comments Father Mother Unspecified Social History Tobacco Use Types Packs/Day Years Used Date Smoking Tobacco: Former Cigarettes 1.5 35 Smokeless Tobacco: Never Tobacco Cessation:Counseling Given: Not Answered Comments:Quit smokin03/02/1997 Alcohol Use Standard Drinks/Week Comments Yes 0 (1 standard drink = 0.6 oz pur e alcohol) rare social Education Answer Date Recorded Are you interested in more education? Not on julieth e 07/05/2022 Are you concerned about learning? Not on file 07/05/2022 No 07/05/2022 No 07/05/2022 Digital Access Answer Date Recorded No 07/27/2022 No 07/27/2022 Reliable internet access at home? Not on file 07/27/2022 Device with a working camera? Not on file Sex and Gender Information Value Date Recorded Sex Assigned at Not on file Legal Sex Male 5:53 PM EST Gender Identity Not on file Sexual Orientation Not on file Last Filed Vital Signs Vital Sign Reading Time Taken Comments Blood Pressure 155/72 02/08/2024 8:25 AM EST Pulse 68 02/08/2024 8:25 AM EST Temperature 36.4 C (97.6 F) 05/10/2020 9:20 AM EST Respiratory Rate 22 08/11/2022 8:13 AM EDT Oxygen Saturation 95% 05/10/2020 9:20 AM EST Inhaled Oxygen Concentration - - Weight 95.3 kg (210 lb) 05/10/2020 8:10 AM EST Height 175.3 cm (5' 9 ) 05/10/2020 8:10 AM EST Body Mass Index 31.01 05/10/2020 8:10 AM EST Plan of Treatment Upcoming Encounters Date Type Department Care Team (Late st Contact Info) Description 01/09/2025 8:45 AM EST Procedure visit [facility] Laser 12th Floor [address] [address] Estrellita Braga MD [address] [place] [address] [email or web address] Health Maintenance Due Date Last Done Comments BLOOD PRESSURE 1939 POTASSIUM LEVEL 1939 DEPRESSION SCREENING 1951 ZOSTER VACCINES (1 of 2) 08/21/1958 RSV VACCINE (1 - 1-dose 75+ series) 08/21/2014 PNEUMOCOCCAL VACCINES (50+ years) (2 of 2 - PCV) 05/04/2019 05/03/2018 INFLUENZA VACCINE (#1) 2024 COVID-19 VACCINE (3 - 2024-2 6 season) 2024 05/05/2020, 04/14/2020 Adult Td,Tdap Booster 07/03/2027 07/02/2017 HEPATITIS A VACCINES Aged Out No long er eligible based on patient's age to complete this topic HIB VACCINES Aged Out No longer eligi ble based on patient's age to complete this topic MENINGOCOCCAL VACCINES (ACWY) Aged Out No longer eligible based on patient's age to complete this topic MENINGOCOCCAL VACCINES (B) Aged Out N o longer eligible based on patient's age to complete this topic Medical Devices Implanted Type Area Supervisor Statement Clerks Device Identifier Shelf Expiration Date Model / Serial / Lot Dental Lens Intraocular Sn60wf 19.5d - [id number] Implanted:Qty: 1 on 04/26/2020 by Connie Cleary MD at [facility] Right: Eye [employer] 12/11/2024 SN60WF 19.5D / [id number] / Lens Intraocular Sn60wf 19.5d - [id number] Implanted:Qty: 1 on 05/10/2020 by Connie Cleary MD at [facility] 12/19/2024 SN60WF 19.5D / [id number] / Procedures Procedure Name Priority Date/Time Associated Diagnosis Comments INTRAVITREAL INJECTION, PHARMACOLOGIC AGENT - OD - RIGHT EYE Routine 10/17/2024 10:25 AM EDT Exudative age-related macular degeneration of right eye with active choroidal neovascularization OCT, RETINA - OU - BOTH EYES Routine 10/17/2024 9:13 AM EDT Exudative age-related macular degeneration of right eye with active choroidal neovascularization from Last 3 Months Results * Intravitreal Injection, Pharmacologic Agent - OD - Right Eye (10/17/2024 10:25 AM EDT) Other Narrative Estrellita Braga MD - 10/17/2024 10:25 AM EDT Pre-Procedure Fall Risk Assessment: age >65 (10 pts), medication regimen (5 pts). Pre Procedure Drops to Injected Eye Anesthetic Medication: Proparacaine 0.5%. 8:55 AM. Dilation medication: Phenylephrine 2.5%-Tropicamide 1%. Dilation medication, time: 8:57 AM. Antibiotic/Antiseptic Medications: Moxifloxacin 0.5%. Antibiotic/Antiseptic Medication, time: 8:59 AM. Injection Information Timeout performed: Yes. Anesthetic Medication: Proparacaine 0.5%. Anesthetic Medication, time: 10:18 AM. Antiseptic Medication Povidone Iodine. Antiseptic Medication, Time: 10:20 AM. Antibiotic Medications: Moxifloxacin 0.5%. Antibiotic Medication, time: 10:25 AM. Injection Medication: 2 mg aflibercept 2 mg/0.05 mL Route: Intravitreal, Site: Right Eye [facility]: 57743-901-86, Lot: [id number], Expiration date: 10/30/2025, Waste: 0 mL Post-Procedure Pain Assessment: 0. Fall Risk Reassessment: age >65 (10 pts), medication regimen (5 pts). Notes Drug: Eylea 2mg 2% lidocaine administered subconjunctivally. One drop 5% povidone-iodine given after subconj injection. Lids prepped with povidone iodine. Lid speculum inserted. One drop 5% povidone-iodine given. Medication injected 3.5 mm posterior to limbus ?superotemporal quadrant. One drop moxifloxacin and erythromycin ointment applied at end of procedure. Discharge instructions were reviewed with the patient. The patient can continue all medications. ? All medications were administered as ordered and at the times indicated. [facility] at least counting fingers at end. Estrellita Braga MD OPHTHALMOLOGY PROCEDURES Final R esult * OCT, RETINA - OU - BOTH EYES - [place]; Volume - 20x20; 37; High Resolution (10/17/2024 9:13 AM EDT) Narrative YUDY - 10/17/2024 10:19 AM EDT Right Eye Disease has: been stable. Left Eye Disease has: been stable. Notes OD: Outer retinal atrophy, subretinal fibrosis. No fluid OS: RPE irregularities, atrophy, no fluid Wet AMD OD s/p large SR heme 09/20 ~ 6.5 weeks s/p Eylea Recent hx of recurrent intraretinal fluid 11 weeks s/p Eylea OD 09/2022 Macula dry 11 weeks s/p Eylea OD Eylea OD today F/u 12 weeks Estrellita Braga MD OPHTHALMOLOGY IMAGING Final Resu lt YUDY from Last 3 Months Insurance MEDICARE PART A & B [employer] SUPPLEMENT MEDICARE PART A & B [employer] SUPPLEMENT MEDICARE PART A & B [employer] MED[employer] SUPPLEMENT MEDICARE PART A & B [employer] MED[employer] SUPPLEMENT MEDICARE PART A & B [employer] MEDEX SUPPLEMENT MEDICARE PART A & B [employer] MEDEX SUPPLEMENT MEDICARE PART A & B [facility] MEDEX SUPPLEMENT MEDICARE PART A & B [employer] MEDEX SUPPLEMENT MEDICARE PART A & B [employer] MEDEX SUPPLEMENT Care Teams Pv Design Engineer Relationship Specialty Start Date End Date Boone Oconnell MD [address] [place] [address] [place] [address] PCP - General Internal Medicine 06/07/15 Additional Source Comments The information contained in this document represents components of the legal health record. It is not the complete legal health record.[facility]
--- OUTSIDE RECORDS SUMMARY | 2025-01-02 08:00 | XMS_ITS | Clinical Summary ---
Author Organization [facility] Address [address] [place] [address] Phone Care Team Providers Care Broker Assistant Name Role Phone Boone Oconnell MD Primary Care Provider [phone] Allergies No known active allergies Medications amLODIPine (NORVASC) 5 mg tablet Take 1 tablet (5 mg total) by mouth 1 (one) time each day. 10/01/2024 Active lisinopril-hydr oCHLOROthiazide (PRINZIDE,ZESTO RETIC) 20-12.5 mg per tablet Take 1 tablet by mouth 1 (one) time each day. 10/01/2024 Active metoprolol succinate (TOPROL-XL) 25 mg 24 hr tablet Take 1 tablet (25 mg total) by mouth 1 (one) time each day. 10/01/2024 Active pravastatin (PRAVACHOL) 40 mg tablet Take 1 tablet (40 mg total) by mouth 1 (one) time each day. for 90 days 10/01/2024 Active acetaminophen (TYLENOL 8 HOUR) 650 mg 8 hr tablet Take 1 tablet (650 mg total) by mouth every 8 (eight) hours if needed for mild pain. Do not crush, chew, or split. 30 tablet 12/23/2024 Active oxyCODONE (ROXICODONE) 5 mg immediate release tablet Take 1 tablet (5 mg total) by mouth every 6 (six) hours if needed for severe pain for up to 2 doses. Max Daily Amount: 20 mg 2 tablet 12/23/2024 Active ibuprofen (ADVIL,MOTRIN) 600 mg tablet Take 1 tablet (600 mg total) by mouth 3 (three) times a day with meals for 15 doses. 15 tablet 12/23/2024 Active Problems Problem Noted Date Diagnosed Date Carpal tunnel syndrome on left 11/04/2024 Sleep apnea 11/02/2008 Overview (11/04/2024): sleep apnea Hypertensive disorder 11/02/2008 Overview (11/04/2024): hypertension Cancer ([facility] V24, [facility] V28) 11/02/2008 Overview (11/04/2024): Cancer; prostate Encounters Date Type Department Care Team Description 12/23/2024 8:30 AM EDT - 12/23/2024 9:30 AM EDT Surgery [facility] OR [address] [place] [phone] Glo Aguirre MD LEFT OPEN CARPAL TUNNEL RELEASE [36934 (CPT )] 12/23/2024 7:38 AM EDT - 12/23/2024 10:17 AM EDT Hospital Encounter [facility] OR [address] [place] [id number] Glo Aguirre MD Discharge Disposition: Home or Self Care 11/08/2024 Telephone Orthopedic Surgery [facility] [address] [address] Glo Aguirre MD 11/07/2024 Telephone Orthopedic Surgery [facility] [address] [address] Glo Aguirre MD 11/07/2024 Telephone Orthopedic Surgery [facility] [address] [address] Glo Aguirre MD 11/04/2024 11:00 AM EDT Consult Orthopedic [facility] 175 [facility] 140 [place] [address] Glo Aguirre MD Carpal tunnel syndrome on left from Last 3 Months Surgical History Surgery Date Site/Laterality Comments SHOULDER SURGERY Left remove spurs CARPAL TUNNEL RELEASE 12/23/2024 Left Left open carpal tunnel release and minor surgery under local anesthesia only Social History Tobacco Use Types Packs/Day Years Used Date Smoking Tobacco: Never Assessed Sex and Gender Information Value Date Recorded Sex Assigned at Not on file Legal Sex Male 1:07 PM EST Gender Identity Not on file Sexual Orientation Not on file Obstetrics History Last Filed Vital Signs Vital Sign Reading Time Taken Comments Blood Pressure 163/70 12/23/2024 10:00 AM EDT Pulse 66 12/23/2024 10:00 AM EDT Temperature 35.9 C (96.6 F) 12/23/2024 9:17 AM EDT Respiratory Rate 18 12/23/2024 10:00 AM EDT Oxygen Saturation 98% 12/23/2024 9:17 AM EDT Inhaled Oxygen Concentration - - Weight 90.7 kg (200 lb) 11/04/2024 11:03 AM EDT Height 175.3 cm (5' 9 ) 11/04/2024 11:03 AM EDT Body Mass Index 29.53 11/04/2024 11:03 AM EDT Plan of Treatment Upcoming Encounters Date Type Department Care Team (Late st Contact Info) Description 01/10/2025 9:15 AM EST Office Visit Orthopedic Surgery - [address] [place] [address] Ayana Loredo, [address] [address] Health Maintenance Due Date Last Done Comments RSV Immunization Adult Patients (1 - 1-dose 75+ series) 08/21/2014 Pneumococcal Vaccine: 50+ Years (2 of 2 - PCV) 05/04/2019 05/03/2018 Depression Screening 03/02/2024 Cholesterol Screening (Lipid Panel) 09/22/2024 Falls Risk Assessment 09/22/2024 Medicare Annual Wellness Visit 09/22/2024 Social Influencers of Health Screening 09/22/2024 COVID-19 Vaccine (4 - 2024-2 6 season) 2024 01/22/2021, 05/05/2020, 04/14/2020 Influenza Vaccine (#1) 2024 Hypertension/CHF/CAD Annual BMP Blood Test 11/04/2024 DTaP,Tdap,and Td Vaccines (3 - Td or Tdap) 07/03/2027 07/02/2017, 07/02/2017 Zoster Vaccines Completed 01/17/2021, 10/30/2020 HIB Vaccines Aged Out No longer eligi ble based on patient's age to complete this topic HPV Vaccines Aged Out No longer eligi ble based on patient's age to complete this topic Hepatitis A Vaccines Aged Out No long er eligible based on patient's age to complete this topic Hepatitis B Vaccines Aged Out No long er eligible based on patient's age to complete this topic IPV Vaccines Aged Out No longer eligi ble based on patient's age to complete this topic MMR Vaccines Aged Out No longer eligi ble based on patient's age to complete this topic Meningococcal ACWY Vaccine Aged Out N o longer eligible based on patient's age to complete this topic Meningococcal B Vaccine Aged Out No l onger eligible based on patient's age to complete this topic RSV Immunization Patients Under 20 months Aged Out No longer eligible b ased on patient's age to complete this topic Varicella Vaccines Aged Out No longer eligible based on patient's age to complete this topic Goals Goal Patient Goal Type Associated Problems Recent Progress Patient-Stated? Author Autogenerat ed Goal Care Plan Autogenerated Problem Glo Braun MD Procedures Procedure Name Priority Date/Time Associated Diagnosis Comments [place] NEUROPLASTY/TRANSP OSITION MEDIAN NERVE AT CARPAL TUNNEL 12/23/2024 9:17 AM EDT Carpal tunnel syndrome on left Case Notes ON STRETCHER; REGULAR TOURNIQUET AVAILABLE No prior authorization is required Special Needs 11/07 spoke to patient has some concerns let him know I will send Dr Aguirre a message. from Last 3 Months Additional Health Concerns Active Problems Noted Date Diagnosed Date Autogenerated Problem 12/24/2024 Insurance MEDICARE [facility] Care Teams Broker Assistant Relationship Specialty Start Date End Date Boone Oconnell MD [address] [place] [address] [place] [address] PCP - General Internal Medicine 09/21/24
--- OUTSIDE RECORDS SUMMARY | 2025-01-02 08:00 | XMS_ITS | Encounter Summary ---
Author Organization [facility] Address [address] [place] [address] Phone Care Team Providers Care Travel Guide Name Role Phone Boone Oconnell MD Primary Care Provider Encounter Details Date Type Department Care Team (Late Contact Info) Description 06/13/2020 Telephone [facility] [address] [address] Connie Cleary MD [address] [place] [address] [email or web address] Social History Tobacco Use Types Packs/Day Years [...] Description 01/09/2025 8:45 AM EST Procedure [place] [facility] [place] 12th Floor [address] [address] Estrellita Braga MD [address] [place] [address] [email or web address] documented as of this encounter Visit Diagnoses Not on filedocumented in this encounter Care Teams Travel Guide Relationship Specialty Start Date End Date Boone Oconnell MD [address] [place] [address] Dr [place], [place] [address] PCP - General Internal Medicine 06/07/15 documented as of this encounter Additional Source Comments The information contained in this document represents components of the legal health record. It is not the complete legal health record.[facility]
--- OUTSIDE RECORDS SUMMARY | 2025-01-02 08:00 | XMS_ITS | Encounter Summary ---
Author Organization [facility] Address [address] [place] [address] Phone Care Team Providers Care Ruling Machine Set Up Operator Name Role Phone Boone Oconnell MD Primary Care Provider Encounter Details Date Type Department Care Team ([facility] Contact Info) Description 04/26/2020 Procedure Pass ANTHONY 6TH FL PERIOP DEPT 243 [place] [address] Social History Tobacco Use Types Packs/Day Years [...] visit ANTHONY Ophthalmology Laser 12th Floor 243 [facility] 12th [place] [address] Estrellita Braga MD 243 [place] [address] [email or web address] documented as of this encounter Visit Diagnoses Not on filedocumented in this encounter Care Teams Ruling Machine Set Up Operator Relationship Specialty Start Date End Date Boone Oconnell MD [address] [place] [address] [place] [address] PCP - General Internal Medicine 06/07/15 documented as of this encounter Additional Source Comments The information contained in this document represents components of the legal health record. It is not the complete legal health record.[facility]
== END ==
LOC: HO.CARD 07:56
PROVIDERS: PCP Internal Medicine; Visit Provider Internal Medicine Cardiovascular Disease
DX: I35.0 Nonrheumatic aortic (valve) stenosis (principal)
CPT/HCPCS: 93306

== ENCOUNTER → 2025-01-02 07:59 | Outpatient (BNV) | payer MEDICARE, SELFPAY | PROVIDERS: PCP Internal Medicine; Visit Provider Internal Medicine | DX: I42.2 Other hypertrophic cardiomyopathy (principal); I35.0 Nonrheumatic aortic (valve) stenosis; I35.8 Other nonrheumatic aortic valve disorders | CPT/HCPCS: 93306 ==

== ENCOUNTER 2025-01-05 08:19 | Outpatient (AMB) | payer MEDICARE, SELFPAY ==
--- NOTE | 2025-01-05 08:35 | A.OFFVIS_ITS ---
Vital Signs 01/05/25 08:36 Height 5 ft 8 in Weight 197 lb 15.602 oz BMI 30.1 BP 116/60 Blood Pressure Location Lt brachial Position Sitting Pulse 53 Pulse Source Monitor Intake Visit Reasons: 1 yr follow up/ Echo Neuropsychology Service Director Required: No Accompanied by: Spouse Allergies No Known Allergies (No Known Allergies*) Allergy (Verified 02/12/24 12:59) Medication List - Last Reconciled 01/05/25 by Mauri Smith MD amlodipine 2.5 mg PO DAILY aspirin (Ecotrin Low Strength) 81 mg PO DAILY lisinopril-hydrochlorothiazide 20-12.5 mg 1 tab PO DAILY metoprolol succinate ER 25 mg PO DAILY omega-3 fatty acids (Fish Oil Concentrate) 1,000 mg PO DAILY pravastatin 40 mg PO DAILY HPI Comments Details: Saravanan comes for follow-up. He has been doing well from cardiac perspective. He denies any cardiac symptoms. Remains active. Denies any exertional chest pain or shortness of breath. No lightheadedness. Denies any orthopnea, PND, leg edema. Takes all his medications. No prolonged palpitation or irregular heartbeat. No syncopal episodes FOR[facility], [facility] Medical History PVCs (premature ventricular contractions) Aortic stenosis Hypertensive heart disease ACS (acute coronary syndrome) High cholesterol HTN (hypertension) Surgical History History of appendectomy Family History Father No problems noted. Mother No problems noted. Social History Household Members: Spouse Housing: House Do you presently have visiting nurse or other home services: No Alcohol intake: never Patient Tobacco Use Status: Former Tobacco user service: No Current occupational status: retired Review of Systems Const Denies chills, Denies fatigue, Denies fever(s), Denies frequent falls, Denies weakness, Denies weight gain and Denies weight loss ENT Denies dizziness Card Denies chest pain, Denies leg edema, Denies lightheadedness, Denies palpitations, Denies dyspnea and Denies dyspnea on exertion Resp Denies cough, Denies dyspnea and Denies dyspnea on exertion GI Denies hematochezia Musc Denies abnormal gait, Denies muscle weakness, Denies numbness, Denies radiating pain into limb and Denies tingling Neuro Denies abnormal gait, Denies dizziness, Denies frequent falls, Denies numbness, Denies tingling and Denies weakness Endo Denies fatigue and Denies palpitations Physical Exam Vital Signs: Last Vital Signs Pulse 53 01/05/25 08:36 BP 116/60 01/05/25 08:36 BMI result Body Mass Index 30.1 Const General: cooperative, healthy appearing, comfortable and no acute distress Orientation/consciousness: patient oriented x3 HEENT Head: Yes normal to inspection Resp Effort & Inspection: normal respiratory effort Auscultation: clear to auscultation bilaterally, no rales, no rhonchi and no wheezes Cardio Jugular venous distension: no JVD Rate: regular rate Rhythm: regular rhythm Heart sounds: S2 normal heart sound present, no gallops, Murmur heart sound present systolic mid, decrescendo and crescendo and no rubs Neuro General: patient oriented x3 Extrem General: Yes normal to inspection, No no pedal edema and No calf tenderness Psych Appearance: grossly normal Mental Status: mental status grossly normal Speech and movement: Normal speech and movement present Office Procedures EKG Details: EKGs shows sinus bradycardia with first-degree AV block with rightward axis with QS pattern in lead V1 V2 [id number], Complete Assessment & Plan Assessment & Plan (1) Aortic stenosis: Code(s): I35.0 - Nonrheumatic aortic (valve) stenosis Category: Medical Plan: Moderate calcific aortic stenosis which has a stable and does not require any i ntervention at this point time. Recommended to continue to monitor annually by echocardiogram. Cardinal symptoms associated with aortic stenosis were discussed with him. Continue vascular risk factor modification. Continue low- dose aspirin therapy. Goal LDL at least less than 100 mg/dL. Gradually progressive nature of aortic stenosis was discussed with him. Encouraged to maintain activity level as tolerated. (2) Hypertensive heart disease: Code(s): I11.9 - Hypertensive heart disease without heart failure Category: Medical Plan: Hypertensive heart disease, currently with well optimized blood pressure. No signs or symptoms of heart failure. Continue aggressive blood pressure control. Continue current regimen which is working well for him. He is not having any side effects. Advised to monitor blood pressure at home maintain a log. Goal blood pressure less than 130/84. Low-salt diet was discussed. Will follow up in the clinic in 1 year's time, sooner PRN. Thank you for allowing me to partake in his care Coding Level of Care Code Est Pt Level 4 (02711) Complex EM visit Add On G2211 Diagnoses Aortic stenosis I35.0 Hypertensive heart disease I11.9 CPT Codes EKG - CPT: 26361-[id number], Complete ([id number])
[2025-01-05 08:36] VITALS: BP 116/60; PULSE 53; BMI 30.1
== END 2025-01-05 08:51 | disposition home or self-care (01) ==
LOC: HO.HCS 08:19
PROVIDERS: PCP Internal Medicine; Visit Provider Internal Medicine Cardiovascular Disease
DX: I35.0 Nonrheumatic aortic (valve) stenosis (principal); I11.9 Hypertensive heart disease without heart failure
CPT/HCPCS: 93010; 99214; G2211

== ENCOUNTER → 2025-01-05 08:19 | Outpatient (BNVA) | payer MEDICARE, SELFPAY | PROVIDERS: PCP Internal Medicine; Visit Provider Internal Medicine Cardiovascular Disease | DX: I35.0 Nonrheumatic aortic (valve) stenosis (principal); I11.9 Hypertensive heart disease without heart failure | CPT/HCPCS: 93005; 99212 ==